=== PATIENT | female | born 1970 | race Caucasian/White ===

== ENCOUNTER → 2016-12-20 | Outpatient (CLI) | payer OTHER ==
[~2016-12-20] MED LIST: /DULO30CA; ACET500C; CALCCHW12 PO; DETR4CAP PO; ESTR62CR VA; FEXO30TA PO; FLEXERIL PO; HORMONES OR; IBUP600T PO; LECITHIN; LECITHIN PO; LIPI20TA OR; MIDRCAP PO; NAPR500T OR; NEXI20CA OR; OXYC10TA12 PO; PREG50CA PO; PROBIOTICS OR; PROP60TA OR; SUMA125TA OR; THERGRAN PO; TRAM50TA2 PO; VIVELLE PATCH EXT; VIVELLE TOP; [UNRECOGNIZED DRUG - OTHER] OR; antibiotic PO; oxycodone PO
--- NOTE | 2016-12-22 00:14 | ECWPNPC ---
PATIENT NAME: NOE SIDDIQUI : 1970 GENDER: FEMALE VISIT DATE: 12/20/2016 DISCHARGE DATE: 12/20/16 1557 VISIT LOCKED DATE TIME: PHYSICIAN: CHANTAL LAGUNA RESOURCE: CHANTAL LAGUNA HISTORY OF PRESENT ILLNESS HISTORY OF PRESENT ILLNESS: PAIN THE PATIENT DESCRIBES THE PAIN... FALL RISK SCREENING: SCREENING :NO FALLS IN THE PAST YEAR TODAY'S VISIT: NOTES: RATES 05/23 TODAY. IS SCHEDULED FOR CERVICAL FUSION WITH DR DASH SHOEMAKER ON 01/02/17. C5,6 AND 7 WITH CAGE. HAD ALLERGIC RESPONSE TO BOTOX. . CURRENT MEDICATIONS TAKING IMITREX 100 MG TABLET ORALLY NEEDED TAKING ONDANSETRON 8 MG TABLET DISPERSIBLE ORALLY TID PRN TAKING TRAMADOL HCL 50 MG TABLET ORALLY UP TO 8 PER DAY TAKING SINGULAIR 10 MG TABLET 1 TABLET IN THE EVENING ORALLY ONCE A DAY TAKING DETROL LA 4 MG CAPSULE EXTENDED RELEASE 24 HOUR 1 CAPSULE ORALLY ONCE A DAY TAKING VIVELLE-DOT 0.1 MG/24HR PATCH TWICE WEEKLY 1 PATCH TO SKIN TRANSDERMAL TWO TIMES A WEEK TAKING DYMISTA 137-50 MCG/ACT SUSPENSION 1 PUFF IN EACH NOSTRIL NASALLY TWICE A DAY TAKING CLARITIN 10 MG TABLET 1 TABLET ORALLY ONCE A DAY TAKING MECLIZINE HCL 25 MG TABLET 1 TABLET NEEDED ORALLY ONCE A DAY TAKING SUMATRIPTAN SUCCINATE 6 MG/0.5ML SOLUTION 0.5 ML NEEDED SUBCUTANEOUS NEEDED TAKING MULTIVITAMIN 1 CAP ORALLY ONCE DAILY TAKING MAGNESIUM 1200 MG TABLET 1 TABLET ORALLY ONCE A DAY TAKING OXYCODONE HCL 5 MG TABLET 1 TABLET ORALLY EVERY 6 HRS PRN MDD4 NOT-TAKING BACLOFEN 10 MG TABLET ORALLY FOUR TIMES DAILY NOT-TAKING VALIUM 10 MG TABLET 2 ORALLY PREPROCEDURE MEDICATION LIST REVIEWED AND RECONCILED WITH THE PATIENT PAST MEDICAL HISTORY IBS FIBROMYALGIA PTSD ESOPHAGITIS HYPERLIPIDEMIA LOW BACK PAIN MIGRAINE HEADACHES CHRONIC PELVIC PAIN SLEEP APNEA SINUSITIS C DIFF ALLERGIES NORTRIPTYLINE HCL: HAIR LOSS: ALLERGY INDERAL: RASH, HIVES: ALLERGY CODEINE PHOSPHATE (FOR ALLERGIES USE ONLY): VOMITING/ NAILS: ALLERGY LYRICA: SHAKY, HAIR LOSS, ITCH: ALLERGY NEURONTIN: ANXIETY, ITCHING: ALLERGY TOPAMAX: HAIR LOSS: ALLERGY TRAZODONE HCL ER: HEADACHE: ALLERGY ZOCOR: BODY ACHE: SIDE EFFECTS MORPHINE SULFATE: VOMITING/ MIGRAINE: SIDE EFFECTS DEPAKOTE: HIVES: ALLERGY BOTOX: ITCHES / SWELLING: ALLERGY SOCIAL HISTORY GENERAL: TOBACCO USE ARE YOU A:NONSMOKER 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 NEW PATIENT PAIN DIARY TODAY'S VISITNOTES FROM 0-10, WHAT LEVEL IS YOUR PAIN TODAY?0 PAIN CLINIC PFS, CLERGY, PUBLIC HEALTH REFERRALS PFS REFERRAL NEEDED?NO CLERGY REFERRAL NEEDED?NO PUBLIC HEALTH REFERRAL NEEDED?NO WAS THE PROVIDER NOTIFIED OF ANY PERTINENT INFO?NO PFS REFERRAL NEEDED?NO CLERGY REFERRAL NEEDED?NO PUBLIC HEALTH REFERRAL NEEDED?NO WAS THE PROVIDER NOTIFIED OF ANY PERTINENT INFO?NO REVIEW OF SYSTEMS CONSTITUTIONAL: ANY CHANGE IN YOUR MEDICAL CONDITION? NO . CHILLS NO . FEVER NO . INFECTION: DO YOU HAVE NEW INFECTIONS? NO . DO YOU HAVE HISTORY OF MRSA? NO . MUSCULOSKELETAL: ANY NEW PATTERNS OF PAIN OR NUMBNESS? NO . GASTROENTEROLOGY: ANY NEW CHANGE IN BOWEL CONTROL? NO . GENITOURINARY: ANY NEW CHANGE IN BLADDER CONTROL? YES PT REPORTS SHE IS HAVING A HARD TIME URINATING, SAW HER PRIMARY ABOUT THIS YESTERDAY . IS THERE A CHANCE YOU COULD BE ? NO . HEMATOLOGY/LYMPH: DO YOU TAKE ANY BLOOD THINNERS? (FOR EXAMPLE- COUMADIN, PLAVIX, AGGRENOX, PLATEL, PRADAXA, OR XARELTO) NO . WHEN WAS YOUR LAST DOSE? DATE: TIME: . NEUROLOGY: HAVE YOU FALLEN IN THE PAST 6 MONTHS? NO . ANY NEW EXTREMITY NUMBNESS OR WEAKNESS? NO . CARDIOLOGY: DO YOU HAVE A PACEMAKER OR DEFIBRILLATOR? NO . RESPIRATORY: HAVE YOU BEEN SICK IN THE PAST WEEK? YES PT BEING TREATED WITH ANTIBIOTICS FOR SINUS INFECTION, STARTED YESTERDAY . FEVER NO . FLU LIKE SYMPTOMS? NO . COUGH NO . INTEGUMENTARY: DO YOU HAVE ANY RASHES OR OPEN SORES? NO . ALLERGIC/IMMUNO: ARE YOU ALLERGIC TO SHELLFISH OR IV DYE? NO . ANY NEW ALLERGIES? NO . PSYCHIATRIC: DO YOU HAVE THOUGHTS OF HURTING YOURSELF OR SOMEONE ELSE? NO . ARE YOU ABUSED, NEGLECTED, OR IN AN UNSAFE ENVIRONMENT? NO . ENDOCRINOLOGY: ARE YOU DIABETIC? NO . OTHER: DO YOU NEED ANY PRESCRIPTIONS? YES OXYCODONE . IF YES, PLEASE LIST: ____ . ANY NEW PROBLEMS WITH YOUR MEDICATIONS? YES PT HAD THIRD ROUND OF BOTOX INJECTIONS AT DR. DURAN'S OFFICE EARLY OCTOBER, AND THIS TIME SHE HAD A LOT OF PAIN/SWELLING WITH THE INJECTIONS. IT TOOK TWO WEEKS FOR THIS TO SUBSIDE.&NBSP;. WHEN DID YOU LAST EAT? &NBSP;&NBSP; ____&NBSP;. WHEN DID YOU LAST DRINK? &NBSP;&NBSP; ____&NBSP;. WHAT DID YOU LAST DRINK? &NBSP;&NBSP; ____&NBSP;. NAME OF PERSON DRIVING YOU HOME? &NBSP;&NBSP; ____&NBSP;. DO YOU HAVE ANY OTHER QUESTIONS OR CONCERNS &NBSP;&NBSP; YES PT TO HAVE SURGERY C5-C6, C6-C7 FUSION DONE AT [facility] 01/02/17&NBSP;. REVIEWED BY: PROVIDER: CHANTAL GAONA . VITAL SIGNS WT 147.8 LBS, HT 67 IN, BMI 23.15 INDEX, BP 124/81 MM HG, HR 74 /MIN, RR 16 /MIN, TEMP 98.7 F, OXYGEN SAT % 94%, NA INITIALS SC 15 :16. EXAMINATION GENERAL EXAMINATION: PSYCHALERT , ORIENTED X 3 , APPROPRIATE MOOD AND AFFECT . LUNGS:CLEAR TO AUSCULTATION BILATERALLY. HEART:HEART RATE REGULAR. MUSCULOSKELETAL:POINT TENDERNESS OVER LUMBAR SPINOUS PROCESSES AND L>R LUMBAR PARASPINOUS MUSCLES. 4/5 LEFT LLOWER EXTREMITY MOTOR STRENGTH DISTALLY AND PROXIMALLY, 5/5 RIGHT LOWER EXTREMITY. GAIT ANTALGIC. PSITIVE DELISA SIGN NOTED ON LEFT. POINT TENDERNESS OVER SYMPHIGOUS PUBIS. 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 SURGEON TO MANAGE MEDS IN THE IMMEDIATE POST OP PERIOD.CONTINUE BIOFREEZE AND YOGA FOR PAIN. PROCEDURE CODES FA211 ESTABILISHED PATIENT [facility] CHARGE DISPOSITION & COMMUNICATION FOLLOW UP 6-8 WEEKS AFTER SURGERY ELECTRONICALLY SIGNED BY PARMJIT LOVING ON 12/21/2016 AT 07:47 PM EST DISCLAIMER : THIS IS A VISIT SUMMARY EXTRACTED FROM THE [employer] CHART. IT IS NOT A COPY OF THE [employer] PROGRESS NOTE. MELANY
== END ==
LOC: M PAIN 15:00
PROVIDERS: ATTEND Nurse Practitioner Family
DX: Z09 Encounter for follow-up examination after completed treatment for conditions other than malignant neoplasm (principal); G89.29 Other chronic pain; M96.1 Postlaminectomy syndrome, not elsewhere classified; M46.96 Unspecified inflammatory spondylopathy, lumbar region; M50.20 Other cervical disc displacement, unspecified cervical region; K58.9 Irritable bowel syndrome, unspecified; M79.7 Fibromyalgia; F43.10 Post-traumatic stress disorder, unspecified; E78.5 Hyperlipidemia, unspecified; G43.909 Migraine, unspecified, not intractable, without status migrainosus; G47.30 Sleep apnea, unspecified; Z88.8 Allergy status to other drugs, medicaments and biological substances; Z88.5 Allergy status to narcotic agent; Z79.891 Long term (current) use of opiate analgesic; Z79.899 Other long term (current) drug therapy

== ENCOUNTER → 2017-04-02 | Outpatient (CLI) | payer OTHER ==
--- NOTE | 2017-04-23 00:34 | ECWPNPC ---
PATIENT NAME: NOE SIDDIQUI : 1970 GENDER: FEMALE VISIT DATE: 04/02/2017 DISCHARGE DATE: 04/02/17 1646 VISIT LOCKED DATE TIME: PHYSICIAN: CHANTAL LAGUNA RESOURCE: CHANTAL LAGUNA REASON FOR APPOINTMENT 1. NECK/BACK HISTORY OF PRESENT ILLNESS HISTORY OF PRESENT ILLNESS: PAIN THE PATIENT DESCRIBES THE PAIN... FALL RISK SCREENING: SCREENING :NO FALLS IN THE PAST YEAR TODAY'S VISIT: NOTES: S/P CERVICAL FUSION COMPLETED 01/02/17 AT C5-6, C6-7. LOST VOICE AFTER SURGERYX 2 MONTHS. HAS BEEEN DOING POST OP PT. THIS IMPROVED RANGE OF MOTION. IMMED POST HAD REVIEF OF PAIN IN ARMS AND IS HAVING FEWER MIGRAINES. . RATES PAIN TODAY 7/10. DESCRIBES PAIN CNSTANT, ACHING, SHARP, STABBING, TENDER AND THROBBING AND SHOOTING. PAIN IS NOW WORSE IN LOW BACK WITH PAIN INTO LEGS. STILL WITH DIFFICULTY WITH BOWEL AND BLADDER. . CURRENT MEDICATIONS TAKING IMITREX 100 MG TABLET ORALLY NEEDED TAKING ONDANSETRON 8 MG TABLET DISPERSIBLE ORALLY TID PRN TAKING TRAMADOL HCL 50 MG TABLET ORALLY UP TO 8 PER DAY TAKING SINGULAIR 10 MG TABLET 1 TABLET IN THE EVENING ORALLY ONCE A DAY TAKING DETROL LA 4 MG CAPSULE EXTENDED RELEASE 24 HOUR 1 CAPSULE ORALLY ONCE A DAY TAKING VIVELLE-DOT 0.1 MG/24HR PATCH TWICE WEEKLY 1 PATCH TO SKIN TRANSDERMAL TWO TIMES A WEEK TAKING DYMISTA 137-50 MCG/ACT SUSPENSION 1 PUFF IN EACH NOSTRIL NASALLY TWICE A DAY TAKING CLARITIN 10 MG TABLET 1 TABLET ORALLY ONCE A DAY TAKING MECLIZINE HCL 25 MG TABLET 1 TABLET NEEDED ORALLY ONCE A DAY TAKING SUMATRIPTAN SUCCINATE 6 MG/0.5ML SOLUTION 0.5 ML NEEDED SUBCUTANEOUS NEEDED TAKING MULTIVITAMIN 1 CAP ORALLY ONCE DAILY TAKING MAGNESIUM 1200 MG TABLET 1 TABLET ORALLY ONCE A DAY TAKING OXYCODONE HCL 10 MG TABLET 1 TABLET ORALLY BID NOT-TAKING BACLOFEN 10 MG TABLET ORALLY FOUR TIMES DAILY NOT-TAKING VALIUM 10 MG TABLET 2 ORALLY PREPROCEDURE MEDICATION LIST REVIEWED AND RECONCILED WITH THE PATIENT PAST MEDICAL HISTORY IBS FIBROMYALGIA PTSD ESOPHAGITIS HYPERLIPIDEMIA LOW BACK PAIN MIGRAINE HEADACHES CHRONIC PELVIC PAIN SLEEP APNEA SINUSITIS C DIFF ALLERGIES NORTRIPTYLINE HCL: HAIR LOSS: ALLERGY INDERAL: RASH, HIVES: ALLERGY CODEINE PHOSPHATE (FOR ALLERGIES USE ONLY): VOMITING/ NAILS: ALLERGY LYRICA: SHAKY, HAIR LOSS, ITCH: ALLERGY NEURONTIN: ANXIETY, ITCHING: ALLERGY TOPAMAX: HAIR LOSS: ALLERGY TRAZODONE HCL ER: HEADACHE: ALLERGY ZOCOR: BODY ACHE: SIDE EFFECTS MORPHINE SULFATE: VOMITING/ MIGRAINE: SIDE EFFECTS DEPAKOTE: HIVES: ALLERGY BOTOX: ITCHES / SWELLING: ALLERGY SURGICAL HISTORY TONSILLECTOMY, ADENOIDECTOMY, REPAIR OF DEVIATED SEPTUM, DRAINAGE OF SINUSES 2012 FUSION L2 L3 2009 LAP KENNETH 2008 HYSTERECTOMY (TOTAL WITH SALPINGO-OOPHORECTOMY) WITH BLADDER AND PELVIC REPAIR 2003 SEVERAL PELVIC SURGURIES POST FOR PELVIC FLOOR ISSUES (HAS CHRONIC BOWEL AND BLADDER ISSUES A RESIDUAL). C-5 THROUGH C7 FUSION 2017 HOSPITALIZATION/MAJOR DIAGNOSTIC PROCEDURE SEE ABOVE REVIEW OF SYSTEMS REVIEWED BY: PROVIDER: CHANTAL GAONA . CONSTITUTIONAL: ANY CHANGE IN YOUR MEDICAL CONDITION? NO . CHILLS NO . FEVER NO . INFECTION: DO YOU HAVE NEW INFECTIONS? NO . DO YOU HAVE HISTORY OF MRSA? NO . MUSCULOSKELETAL: ANY NEW PATTERNS OF PAIN OR NUMBNESS? YES SINCE SURGERY/ ALSO VOICE IS A WHIPSER AND RASPY . GASTROENTEROLOGY: ANY NEW CHANGE IN BOWEL CONTROL? YES SINCE SURGERY HAS DIFFICULTY CONTROLLING . GENITOURINARY: ANY NEW CHANGE IN BLADDER CONTROL? NO . IS THERE A CHANCE YOU COULD BE ? NO . HEMATOLOGY/LYMPH: DO YOU TAKE ANY BLOOD THINNERS? (FOR EXAMPLE- COUMADIN, PLAVIX, AGGRENOX, PLATEL, PRADAXA, OR XARELTO) NO . WHEN WAS YOUR LAST DOSE? DATE: TIME: . NEUROLOGY: HAVE YOU FALLEN IN THE PAST 6 MONTHS? YES HAS &QUOT;TRIPPED A FEW TIMES&QUOT; DUE TO WEAKNESS IN LEGS STATES PATIENT . ANY NEW EXTREMITY NUMBNESS OR WEAKNESS? NO . CARDIOLOGY: DO YOU HAVE A PACEMAKER OR DEFIBRILLATOR? NO . RESPIRATORY: HAVE YOU BEEN SICK IN THE PAST WEEK? NO . FEVER NO . FLU LIKE SYMPTOMS? NO . COUGH NO . INTEGUMENTARY: DO YOU HAVE ANY RASHES OR OPEN SORES? NO . ALLERGIC/IMMUNO: ARE YOU ALLERGIC TO SHELLFISH OR IV DYE? NO . ANY NEW ALLERGIES? NO . PSYCHIATRIC: DO YOU HAVE THOUGHTS OF HURTING YOURSELF OR SOMEONE ELSE? NO . ARE YOU ABUSED, NEGLECTED, OR IN AN UNSAFE ENVIRONMENT? NO . ENDOCRINOLOGY: ARE YOU DIABETIC? NO . OTHER: DO YOU NEED ANY PRESCRIPTIONS? NO . IF YES, PLEASE LIST: ____ . ANY NEW PROBLEMS WITH YOUR MEDICATIONS? NO . WHEN DID YOU LAST EAT? ____ . WHEN DID YOU LAST DRINK? ____ . WHAT DID YOU LAST DRINK? ____ . NAME OF PERSON DRIVING YOU HOME? ____ . DO YOU HAVE ANY OTHER QUESTIONS OR CONCERNS NO . ENT: CHANGE IN VOICE POST OP SWALLOWING ISSUES AND RASPY VOICE. . VITAL SIGNS WT 142.4 LBS, HT 67 IN, BMI 22.30 INDEX, BP 116/79 MM HG, HR 79 /MIN, RR 16 /MIN, TEMP 98.1 F, OXYGEN SAT % 95%, NA INITIALS SC 15:15, REVIEWED BY: KG. EXAMINATION GENERAL EXAMINATION: PSYCHALERT , ORIENTED X 3 , APPROPRIATE MOOD AND AFFECT . LUNGS:CLEAR TO AUSCULTATION BILATERALLY. HEART:HEART RATE REGULAR. MUSCULOSKELETAL:POINT TENDERNESS OVER LUMBAR SPINOUS PROCESSES AND L>R LUMBAR PARASPINOUS MUSCLES. GAIT NONANTALGIC. POSTURE UPRIGHT. POSITIVE DELISA SIGN NOTED ON LEFT. . 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 TREATMENT CERVICAL POST-LAMINECTOMY SYNDROME REFILL BACLOFEN TABLET, 10 MG, 1 TABLET WITH FOOD OR MILK, ORALLY, FOUR TIMES DAILY, 30 DAY(S), 120, REFILLS 1 REFILL VALIUM TABLET, 5 MG, 1 TABLET NEEDED, ORALLY, Q 8-12 HOURSPRN SEVERE SPASM MDD=2, 30 DAY(S), 30, REFILLS 0 REFILL OXYCODONE HCL TABLET, 10 MG, 1 TABLET, ORALLY, Q 8-12 HOURS PRN SEVERE PAIN MDD=2, 30 DAY(S), 60, REFILLS 0 LAB: COMPREHENSIVE METABOLIC PROFILE LAB: ERYTHROCYTE SEDIMENTATION RATE LAB: [id number] LAB: LUPUS TYPE ANTICOAGULANT SCREE LAB: RHEUMATOID FACTOR QUANT LAB: DELIA TITER & PATTERN NOTES: FOLLOW UP WITH [facility] - CALL IF WE CAN MAKE REFERRAL.CONSIDER REPEAT OF LABS FOR AUTOIMMUNE ISSUES. CONSIDER REFERRAL TO [facility] OR TO [facility]. CLINICAL NOTES: ISTOP REGISTRY REVIEWED AND DEMNOSTRATES COMPLLIANCE. PROCEDURE CODES FA211 ESTABILISHED PATIENT [facility] CHARGE DISPOSITION & COMMUNICATION FOLLOW UP 1 MONTH - END OF DAY ELECTRONICALLY SIGNED BY PARMJIT LOVING ON 04/22/2017 AT 08:52 AM EDT DISCLAIMER : THIS IS A VISIT SUMMARY EXTRACTED FROM THE [employer] CHART. IT IS NOT A COPY OF THE [employer] PROGRESS NOTE. MELANY
== END ==
LOC: M PAIN 15:00
PROVIDERS: ATTEND Nurse Practitioner Family
DX: M96.1 Postlaminectomy syndrome, not elsewhere classified (principal); M79.1 Myalgia; M47.22 Other spondylosis with radiculopathy, cervical region; Z79.899 Other long term (current) drug therapy; Z79.891 Long term (current) use of opiate analgesic; Z88.8 Allergy status to other drugs, medicaments and biological substances; Z88.5 Allergy status to narcotic agent

== ENCOUNTER → 2017-05-01 | Outpatient (CLI) | payer OTHER ==
--- NOTE | 2017-06-01 23:55 | ECWPNPC ---
PATIENT NAME: NOE SIDDIQUI : 1970 GENDER: FEMALE VISIT DATE: 05/01/2017 DISCHARGE DATE: 05/01/17 1659 VISIT LOCKED DATE TIME: PHYSICIAN: CHANTAL LAGUNA RESOURCE: CHANTAL LAGUNA REASON FOR APPOINTMENT 1. NECK/BACK HISTORY OF PRESENT ILLNESS HISTORY OF PRESENT ILLNESS: PAIN THE PATIENT DESCRIBES THE PAIN... FALL RISK SCREENING: SCREENING :NO FALLS IN THE PAST YEAR TODAY'S VISIT: NOTES: VOICE HAS BEEN GETTING WORSE WITH INCREASED THROAT SPASMS, AND CHOKING. HAS BEEN HAVING INCREASED RADIATION OF PAIN DOWN LEFT ARM. HAS BEEN HAVING INCREASED WEAKNESS IN LEFT HAND. RATES PAIN TODAY 7/10. . CURRENT MEDICATIONS TAKING IMITREX 100 MG TABLET ORALLY NEEDED TAKING ONDANSETRON 8 MG TABLET DISPERSIBLE ORALLY TID PRN TAKING TRAMADOL HCL 50 MG TABLET ORALLY UP TO 8 PER DAY TAKING SINGULAIR 10 MG TABLET 1 TABLET IN THE EVENING ORALLY ONCE A DAY TAKING DETROL LA 4 MG CAPSULE EXTENDED RELEASE 24 HOUR 1 CAPSULE ORALLY ONCE A DAY TAKING VIVELLE-DOT 0.1 MG/24HR PATCH TWICE WEEKLY 1 PATCH TO SKIN TRANSDERMAL TWO TIMES A WEEK TAKING DYMISTA 137-50 MCG/ACT SUSPENSION 1 PUFF IN EACH NOSTRIL NASALLY TWICE A DAY TAKING CLARITIN 10 MG TABLET 1 TABLET ORALLY ONCE A DAY TAKING MECLIZINE HCL 25 MG TABLET 1 TABLET NEEDED ORALLY ONCE A DAY TAKING SUMATRIPTAN SUCCINATE 6 MG/0.5ML SOLUTION 0.5 ML NEEDED SUBCUTANEOUS NEEDED TAKING MULTIVITAMIN 1 CAP ORALLY ONCE DAILY TAKING MAGNESIUM 1200 MG TABLET 1 TABLET ORALLY ONCE A DAY TAKING BACLOFEN 10 MG TABLET 1 TABLET WITH FOOD OR MILK ORALLY FOUR TIMES DAILY TAKING VALIUM 5 MG TABLET 1 TABLET NEEDED ORALLY Q 8-12 HOURSPRN SEVERE SPASM MDD=2 TAKING OXYCODONE HCL 10 MG TABLET 1 TABLET ORALLY Q 8-12 HOURS PRN SEVERE PAIN MDD=2 MEDICATION LIST REVIEWED AND RECONCILED WITH THE PATIENT PAST MEDICAL HISTORY IBS FIBROMYALGIA PTSD ESOPHAGITIS HYPERLIPIDEMIA LOW BACK PAIN MIGRAINE HEADACHES CHRONIC PELVIC PAIN SLEEP APNEA SINUSITIS C DIFF ALLERGIES NORTRIPTYLINE HCL: HAIR LOSS: ALLERGY INDERAL: RASH, HIVES: ALLERGY CODEINE PHOSPHATE (FOR ALLERGIES USE ONLY): VOMITING/ NAILS: ALLERGY LYRICA: SHAKY, HAIR LOSS, ITCH: ALLERGY NEURONTIN: ANXIETY, ITCHING: ALLERGY TOPAMAX: HAIR LOSS: ALLERGY TRAZODONE HCL ER: HEADACHE: ALLERGY ZOCOR: BODY ACHE: SIDE EFFECTS MORPHINE SULFATE: VOMITING/ MIGRAINE: SIDE EFFECTS DEPAKOTE: HIVES: ALLERGY BOTOX: ITCHES / SWELLING: ALLERGY REVIEW OF SYSTEMS REVIEWED BY: PROVIDER: CHANTAL GAONA . CONSTITUTIONAL: ANY CHANGE IN YOUR MEDICAL CONDITION? NO . CHILLS NO . FEVER NO . INFECTION: DO YOU HAVE NEW INFECTIONS? NO . DO YOU HAVE HISTORY OF MRSA? NO . MUSCULOSKELETAL: ANY NEW PATTERNS OF PAIN OR NUMBNESS? YES, PAIN AND LOSS STRENGTH, NUMBNESS LEFT ARM DOWN TO HAND. FROM C3-C4 THROAT SPASMS, HOARSENESS PAIN. GOING TO SEE DR PETERS ENT 05/08/17 CYST OR TUMOR, OBGYN REMOVAL 05/20/17 . GASTROENTEROLOGY: ANY NEW CHANGE IN BOWEL CONTROL? NO . GENITOURINARY: ANY NEW CHANGE IN BLADDER CONTROL? NO . IS THERE A CHANCE YOU COULD BE ? NO . HEMATOLOGY/LYMPH: DO YOU TAKE ANY BLOOD THINNERS? (FOR EXAMPLE- COUMADIN, PLAVIX, AGGRENOX, PLATEL, PRADAXA, OR XARELTO) NO . WHEN WAS YOUR LAST DOSE? DATE: TIME: . NEUROLOGY: HAVE YOU FALLEN IN THE PAST 6 MONTHS? NO . ANY NEW EXTREMITY NUMBNESS OR WEAKNESS? NO . CARDIOLOGY: DO YOU HAVE A PACEMAKER OR DEFIBRILLATOR? NO . RESPIRATORY: HAVE YOU BEEN SICK IN THE PAST WEEK? NO . FEVER NO . FLU LIKE SYMPTOMS? NO . COUGH NO . INTEGUMENTARY: DO YOU HAVE ANY RASHES OR OPEN SORES? NO . ALLERGIC/IMMUNO: ARE YOU ALLERGIC TO SHELLFISH OR IV DYE? NO . ANY NEW ALLERGIES? NO . PSYCHIATRIC: DO YOU HAVE THOUGHTS OF HURTING YOURSELF OR SOMEONE ELSE? NO . ARE YOU ABUSED, NEGLECTED, OR IN AN UNSAFE ENVIRONMENT? NO . ENDOCRINOLOGY: ARE YOU DIABETIC? NO . OTHER: DO YOU NEED ANY PRESCRIPTIONS? NO . IF YES, PLEASE LIST: ____ . ANY NEW PROBLEMS WITH YOUR MEDICATIONS? NO . WHEN DID YOU LAST EAT? ____ . WHEN DID YOU LAST DRINK? ____ . WHAT DID YOU LAST DRINK? ____ . NAME OF PERSON DRIVING YOU HOME? ____ . DO YOU HAVE ANY OTHER QUESTIONS OR CONCERNS NO . VITAL SIGNS WT 143.6 LBS, HT 67 IN, BMI 22.49 INDEX, BP 116/69 MM HG, HR 68 /MIN, RR 16 /MIN, TEMP 98.6 F, OXYGEN SAT % 98%, NA INITIALS SC 15:47, REVIEWED BY: PANCHO. EXAMINATION GENERAL EXAMINATION: PSYCHALERT , ORIENTED X 3 , APPROPRIATE MOOD AND AFFECT . LUNGS:CLEAR TO AUSCULTATION BILATERALLY. HEART:HEART RATE REGULAR. MUSCULOSKELETAL:POINT TENDERNESS OVER LUMBAR SPINOUS PROCESSES AND L>R LUMBAR PARASPINOUS MUSCLES. GAIT NONANTALGIC. POSTURE UPRIGHT. POINT TENDERNESS OVER BILATRAL TRAPEZIUS MUSCLES AND OVER THE SCAPULA. DECREASED ROM WITH NECK FLEXION, EXTESION AND ROTATION. 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 [phone] TAKE LABS FROM [facility] AND TELL HIM ABOUT OCCULAR INFLAMMATION. PROCEDURE CODES FA211 ESTABILISHED PATIENT [facility] CHARGE DISPOSITION & COMMUNICATION FOLLOW UP 2 MONTHS ELECTRONICALLY SIGNED BY PARMJIT LOVING ON 05/30/2017 AT 07:19 PM EDT DISCLAIMER : THIS IS A VISIT SUMMARY EXTRACTED FROM THE [employer] CHART. IT IS NOT A COPY OF THE [employer] PROGRESS NOTE. MELANY
== END ==
LOC: M PAIN 15:00
PROVIDERS: ATTEND Nurse Practitioner Family
DX: M96.1 Postlaminectomy syndrome, not elsewhere classified (principal); M79.1 Myalgia; Z79.891 Long term (current) use of opiate analgesic; M47.22 Other spondylosis with radiculopathy, cervical region; Z79.899 Other long term (current) drug therapy; Z88.8 Allergy status to other drugs, medicaments and biological substances; Z88.5 Allergy status to narcotic agent; Z88.2 Allergy status to sulfonamides

== ENCOUNTER → 2017-05-17 | Outpatient (CLI) | payer OTHER ==
[~2017-05-17] MED LIST changes: +E-Z-GAS II EFFERVESCENT PACKET (SODIUM BICARB./CITRIC ACID/SIMETHICONE) As Ordered ONE; +E-Z-HD 98% w/w 340GM SUSP BTL As Ordered ONE; +E-Z-PAQUE 96% w/w SUSP 176GM BTL As Ordered ONE
--- NOTE | 2017-05-23 17:19 | REP ---
Chest one-view HISTORY: Dysphasia Comparison: None The examination is available for review at 04:30 p.m. 05/23/2017 Linear density is present in the left lower lobe consistent with atelectasis or scar. The right lung is clear. The heart is normal in size. The pulmonary vasculature is normal in appearance. Impression: Left lower lobe atelectasis or scar. Signed by Karlos Rodríguez MD 05/23/2017 05:10 P
== END ==
LOC: M RAD 09:40
PROVIDERS: ATTEND Otolaryngology
DX: R13.10 Dysphagia, unspecified (principal)

== ENCOUNTER → 2017-06-26 | Outpatient (CLI) | payer OTHER ==
[~2017-06-26] MED LIST changes: -E-Z-GAS II EFFERVESCENT PACKET (SODIUM BICARB./CITRIC ACID/SIMETHICONE) As Ordered ONE; -E-Z-HD 98% w/w 340GM SUSP BTL As Ordered ONE; -E-Z-PAQUE 96% w/w SUSP 176GM BTL As Ordered ONE
--- NOTE | 2017-07-13 23:24 | ECWPNPC ---
PATIENT NAME: NOE SIDDIQUI : 1970 GENDER: FEMALE VISIT DATE: 06/26/2017 DISCHARGE DATE: 06/26/17 1641 VISIT LOCKED DATE TIME: PHYSICIAN: CHANTAL LAGUNA RESOURCE: CHANTAL LAGUNA REASON FOR APPOINTMENT 1. MEDS HISTORY OF PRESENT ILLNESS FALL RISK SCREENING: SCREENING :NO FALLS IN THE PAST YEAR PAIN SCREENING: PATIENT HAS A COMPLAINT OF ACUTE OR CHRONIC PAIN :YES TODAY'S VISIT: NOTES: IS HAVING RECURRANCE OF PAIN RADIATING DOWN LEFT ARM.IS HAVING TROUBLE CARRYING A WEIGHT ON THE LEFT AND LEFT FINGERS ARE NUMB. HAD REPEAT MRI AND WILL RESEE SURGEON AND ENT. THEY WANT HER TO DO PT TO [facility] - NOT CURRENTLY ABLE TO FIND A THERAPIST. IS TO HAV A SWALLOW TEST THIS WEEK. REPORTS ,MEDS ARE PRIMARILY TAKEN AT NIGHT. REPORTS FEELS COLD ALL THE TIME AND IS HAVING MARKED GENERIZED PAIN. HAS LYMPH NODES IN AXILLA AND GROIN WHICH SWELLED AFTER RECENT SURGERY. IS NOTING INCREASED PAIN AND A SENSATION OF THE LEFT HIP WANTING TO DISLOCATE. IS HAVING RADIATING PAIN DOWN LEFT LEG. THIS WAS OCCURING PRIOR TO THE RECENT CYST REMOVAL. . CURRENT MEDICATIONS TAKING IMITREX 100 MG TABLET ORALLY NEEDED TAKING ONDANSETRON 8 MG TABLET DISPERSIBLE ORALLY TID PRN TAKING TRAMADOL HCL 50 MG TABLET ORALLY UP TO 8 PER DAY TAKING SINGULAIR 10 MG TABLET 1 TABLET IN THE EVENING ORALLY ONCE A DAY TAKING DETROL LA 4 MG CAPSULE EXTENDED RELEASE 24 HOUR 1 CAPSULE ORALLY ONCE A DAY TAKING VIVELLE-DOT 0.1 MG/24HR PATCH TWICE WEEKLY 1 PATCH TO SKIN TRANSDERMAL TWO TIMES A WEEK TAKING DYMISTA 137-50 MCG/ACT SUSPENSION 1 PUFF IN EACH NOSTRIL NASALLY TWICE A DAY TAKING CLARITIN 10 MG TABLET 1 TABLET ORALLY ONCE A DAY TAKING MECLIZINE HCL 25 MG TABLET 1 TABLET NEEDED ORALLY ONCE A DAY TAKING SUMATRIPTAN SUCCINATE 6 MG/0.5ML SOLUTION 0.5 ML NEEDED SUBCUTANEOUS NEEDED TAKING MULTIVITAMIN 1 CAP ORALLY ONCE DAILY TAKING MAGNESIUM 1200 MG TABLET 1 TABLET ORALLY ONCE A DAY TAKING BACLOFEN 10 MG TABLET 1 TABLET WITH FOOD OR MILK ORALLY FOUR TIMES DAILY TAKING OXYCODONE HCL 10 MG TABLET 1 TABLET ORALLY Q 8-12 HOURS PRN SEVERE PAIN MDD=2 TAKING VALIUM 5 MG TABLET 1 TABLET NEEDED ORALLY Q 8-12 HOURSPRN SEVERE SPASM MDD=2 MEDICATION LIST REVIEWED AND RECONCILED WITH THE PATIENT PAST MEDICAL HISTORY IBS FIBROMYALGIA PTSD ESOPHAGITIS HYPERLIPIDEMIA LOW BACK PAIN MIGRAINE HEADACHES CHRONIC PELVIC PAIN SLEEP APNEA SINUSITIS C DIFF NERVES IN EYES ARE SWOLLEN ALLERGIES NORTRIPTYLINE HCL: HAIR LOSS: ALLERGY INDERAL: RASH, HIVES: ALLERGY CODEINE PHOSPHATE (FOR ALLERGIES USE ONLY): VOMITING/ NAILS: ALLERGY LYRICA: SHAKY, HAIR LOSS, ITCH: ALLERGY NEURONTIN: ANXIETY, ITCHING: ALLERGY TOPAMAX: HAIR LOSS: ALLERGY TRAZODONE HCL ER: HEADACHE: ALLERGY ZOCOR: BODY ACHE: SIDE EFFECTS MORPHINE SULFATE: VOMITING/ MIGRAINE: SIDE EFFECTS DEPAKOTE: HIVES: ALLERGY BOTOX: ITCHES / SWELLING: ALLERGY SURGICAL HISTORY TONSILLECTOMY, ADENOIDECTOMY, REPAIR OF DEVIATED SEPTUM, DRAINAGE OF SINUSES 2011 FUSION L2 L3 2009 LAP KENNETH 2008 HYSTERECTOMY (TOTAL WITH SALPINGO-OOPHORECTOMY) WITH BLADDER AND PELVIC REPAIR 2003 SEVERAL PELVIC SURGURIES POST FOR PELVIC FLOOR ISSUES (HAS CHRONIC BOWEL AND BLADDER ISSUES A RESIDUAL). C-5 THROUGH C7 FUSION 2017 CYST REMOVED IN RIGHT LABIA AREA 05-22-2017 FAMILY HISTORY STRONG FAMILY HISTORY OF AUTO IMMUNE DISEASES SUCH MULTIPLE SCLEROSIS, PSORIATIC ARTHRITIS, AND GOUT. SOCIAL HISTORY GENERAL: TOBACCO USE ARE YOU A:NONSMOKER CAFFEINE CAFFEINE USE?YES HOW OFTEN AND HOW MUCH? 1 CUP PER DAY 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 NEW PATIENT PAIN DIARY TODAY'S VISITNOTES FROM 0-10, WHAT LEVEL IS YOUR PAIN TODAY?0 PAIN CLINIC PFS, CLERGY, PUBLIC HEALTH REFERRALS PFS REFERRAL NEEDED?NO CLERGY REFERRAL NEEDED?NO PUBLIC HEALTH REFERRAL NEEDED?NO WAS THE PROVIDER NOTIFIED OF ANY PERTINENT INFO?YES HAS THE PATIENT BEEN EDUCATED REGARDING HIS/HER PLAN OF CARE?YES HAS THE PATIENT BEEN EDUCATED REGARDING PAIN, THE RISK FOR PAIN, THE IMPORTANCE OF EFFECTIVE PAIN MANAGEMENT, AND THE PAIN ASSESSMENT PROCESS?YES REVIEWED BY: SARA. HOSPITALIZATION/MAJOR DIAGNOSTIC PROCEDURE SEE ABOVE REVIEW OF SYSTEMS REVIEWED BY: PROVIDER: CHANTAL GAONA . CONSTITUTIONAL: LEVEL OF FUNCTIONALITY SIGN INTOLERANCE . ANY CHANGE IN YOUR MEDICAL CONDITION? NO . CHILLS NO . FEVER NO . INFECTION: DO YOU HAVE NEW INFECTIONS? NO . DO YOU HAVE HISTORY OF MRSA? NO . MUSCULOSKELETAL: ANY NEW PATTERNS OF PAIN OR NUMBNESS? NO . SYTEMIC LUPUS NO . GASTROENTEROLOGY: ANY NEW CHANGE IN BOWEL CONTROL? NO . BARRETTS ESOPHAGUS NO . CIRRHOSIS NO . HEPATITIS NO . LIVER FAILURE NO . ACID REFLUX NO . UNEXPLAINED WEIGHT LOSS NO . GENITOURINARY: ANY NEW CHANGE IN BLADDER CONTROL? NO . IS THERE A CHANCE YOU COULD BE ? NO . HEMATOLOGY/LYMPH: DO YOU TAKE ANY BLOOD THINNERS? (FOR EXAMPLE- COUMADIN, PLAVIX, AGGRENOX, PLATEL, PRADAXA, OR XARELTO) NO . WHEN WAS YOUR LAST DOSE? DATE: TIME: . LOW PLATELET COUNT NO . SICKLE CELL DISEASE NO . VON WILLIEBRANDS NO . FACTOR V LEIDEN NO . THALLASEMIA NO . ANEMIA NO . EASY BRUISING NO . NEUROLOGY: HAVE YOU FALLEN IN THE PAST 6 MONTHS? NO . ANY NEW EXTREMITY NUMBNESS OR WEAKNESS? NO . HEAD INJURY NO . DEMENTIA NO . CEREBRAL PALSY NO . MULTIPLE SCLEROSIS NO . DIZZINESS NO . HEADACHE NO . STROKES NO . VERTIGO NO . CARDIOLOGY: DO YOU HAVE A PACEMAKER OR DEFIBRILLATOR? NO . ANGINA NO . HEART ATTACK NO . HEART SURGERY NO . CONGESTIVE HEART FAILURE/FLUID OVERLOAD NO . CHEST PAIN NO . HIGH BLOOD PRESSURE NO . IRREGULAR HEART BEAT NO . RESPIRATORY: HAVE YOU BEEN SICK IN THE PAST WEEK? NO . FEVER NO . FLU LIKE SYMPTOMS? NO . CPAP NO . BYPAP NO . ASTHMA NO . EMPHYSEMA NO . CHRONIC LUNG DISEASES NO . SHORTNESS OF BREATH ON EXERTION NO . COUGH NO . SNORING NO . INTEGUMENTARY: DO YOU HAVE ANY RASHES OR OPEN SORES? NO . ALLERGIC/IMMUNO: ARE YOU ALLERGIC TO SHELLFISH OR IV DYE? NO . ANY NEW ALLERGIES? NO . PSYCHIATRIC: DO YOU HAVE THOUGHTS OF HURTING YOURSELF OR SOMEONE ELSE? NO . ARE YOU ABUSED, NEGLECTED, OR IN AN UNSAFE ENVIRONMENT? NO . ENDOCRINOLOGY: ARE YOU DIABETIC? NO . THYROID DISORDER NO . OTHER: DO YOU NEED ANY PRESCRIPTIONS? VALIUM, OXYCODONE . IF YES, PLEASE LIST: ____ . ANY NEW PROBLEMS WITH YOUR MEDICATIONS? NO . WHEN DID YOU LAST EAT? ____ . WHEN DID YOU LAST DRINK? ____ . WHAT DID YOU LAST DRINK? ____ . NAME OF PERSON DRIVING YOU HOME? ____ . 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 VITAL SIGNS WT 140 LBS, HT 67 IN, BMI 21.92 INDEX, BP 114/73 MM HG, HR 77 /MIN, RR 16 /MIN, TEMP 98.1 F, OXYGEN SAT % 96%, SAFE IN ENV? (Y/N) Y, NA INITIALS AW 1521, REVIEWED BY: SARA. EXAMINATION GENERAL EXAMINATION: PSYCHALERT , ORIENTED X 3 , APPROPRIATE MOOD AND AFFECT . HEENT:VOICE SOFT, RASPY/HOARSE. CHEST:SWOLLEN LYMPH NODES BILATERAL AXILLA L>R, TENDER OVER BILATERAL GROIN AND POPLITEAL SPACES . LUNGS:CLEAR TO AUSCULTATION BILATERALLY. HEART:HEART RATE REGULAR. MUSCULOSKELETAL:GENERALIZED WEAKNESS BILATERAL UPPER AND LOWER EXTREMITIES. TENDERNESS ABOVE AND BELOW THE WAIST, BOTH SIDES OF THE BODY, CONSISTANT WITH FIBROMYALGIA. SPECIFIC TRIGGER POINTS ARE ELICTED WITH PALPATION OVER THE CERVICAL PARASPINOUS MUSCLES AND ACROSS THE TRAPEZIUS. SLOW TO RISE TO STANDING POSITION. POSTURE UPRIGHT, GAIT ANTALGIC. JOINTS:BILATERAL, ANKLE , ELBOW , KNEE , SHOULDER , WRIST , PAIN , SWELLING . 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 CLINICAL NOTES: ISTOP REGISTRY REVIEWED AND DEMNOSTRATES COMPLLIANCE. ([id number]) BRINGS IN MEDICATIONS WHICH IS APPROPRIATE FOR WHAT WAS DISPENSED. RECENT URINE TOXICOLOGY REVIEWED. NO UNAUTHORIZED MEDICATIONS. NO ILLICIT SUBSTANCES AND PRESCRIBED MEDICATIONS WERE PRESENT. PROCEDURE CODES FA211 ESTABILISHED PATIENT [facility] CHARGE DISPOSITION & COMMUNICATION FOLLOW UP 4-6 WEEKS (REASON: NECK PAIN) ELECTRONICALLY SIGNED BY PARMJIT LOVING ON 07/13/2017 AT 09:10 PM EDT DISCLAIMER : THIS IS A VISIT SUMMARY EXTRACTED FROM THE [employer] [facility] CHART. IT IS NOT A COPY OF THE [facility] PROGRESS NOTE. MTDD
== END ==
LOC: M PAIN 15:00
PROVIDERS: ATTEND Nurse Practitioner Family
DX: M96.1 Postlaminectomy syndrome, not elsewhere classified (principal); M47.22 Other spondylosis with radiculopathy, cervical region; M79.1 Myalgia; F43.10 Post-traumatic stress disorder, unspecified; E78.5 Hyperlipidemia, unspecified; G47.30 Sleep apnea, unspecified; Z88.5 Allergy status to narcotic agent; Z88.8 Allergy status to other drugs, medicaments and biological substances; Z79.891 Long term (current) use of opiate analgesic; Z79.899 Other long term (current) drug therapy

== ENCOUNTER → 2017-06-28 | Outpatient (CLI) | payer OTHER ==
[~2017-06-28] MED LIST changes: +E-Z-GAS II EFFERVESCENT PACKET (SODIUM BICARB./CITRIC ACID/SIMETHICONE) As Ordered ONE; +E-Z-HD 98% w/w 340GM SUSP BTL As Ordered ONE; +E-Z-PAQUE 96% w/w SUSP 176GM BTL As Ordered ONE
--- NOTE | 2017-06-28 10:48 | REP ---
Esophagram: History: Dysphasia and dysphonia since the cervical spine fusion surgery earlier in this year. Fluoroscopy time is 1 minute 5 seconds. Findings: Spot Welder radiograph of the chest shows the bottom of a cervical spine fusion plate. There are clips in the right upper quadrant of the abdomen. Some linear fibrosis is seen in the left base. Lung rodriguez are otherwise clear. Cardiomediastinal silhouette is unremarkable. It was observed that the patient had a prominent gag reflex in response to the oral barium. There was laryngeal penetration. There was a cough reflex induced with several of the swallows as well but no tracheal aspiration was observed. The epiglottis was observed to invert somewhat late in the swallowing cycle. The hypopharynx is unremarkable. The ventral discectomy fusion plate is seen in good alignment. This does not appear to indent the posterior wall of the hypopharynx or upper cervical esophagus. There is straightening of the normal cervical spine. The thoracic esophagus is normal in coarse, caliber and peristalsis. No reflux, hiatal hernia, or stricture is seen. Impression: Mild motor discoordination of the oral pharyngeal phase of barium swallow with delayed epiglottic inversion and laryngeal penetration. No tracheal aspiration is observed. No significant mass effect is seen on the posterior wall of the hypopharynx or cervical esophagus. Signed by Giovanny Youngblood MD 06/28/2017 02:47 P
== END ==
LOC: M RAD 09:07
PROVIDERS: ATTEND Otolaryngology
DX: R13.10 Dysphagia, unspecified (principal)

== ENCOUNTER → 2017-08-13 | Outpatient (CLI) | payer OTHER ==
[~2017-08-13] MED LIST changes: -E-Z-GAS II EFFERVESCENT PACKET (SODIUM BICARB./CITRIC ACID/SIMETHICONE) As Ordered ONE; -E-Z-HD 98% w/w 340GM SUSP BTL As Ordered ONE; -E-Z-PAQUE 96% w/w SUSP 176GM BTL As Ordered ONE
--- NOTE | 2017-09-09 01:01 | ECWPNPC ---
PATIENT NAME: NOE SIDDIQUI : 1970 GENDER: FEMALE VISIT DATE: 08/13/2017 DISCHARGE DATE: 08/13/17 1641 VISIT LOCKED DATE TIME: PHYSICIAN: CHANTAL LAGUNA RESOURCE: CHANTAL LAGUNA REASON FOR APPOINTMENT 1. NECK PAIN HISTORY OF PRESENT ILLNESS HISTORY OF PRESENT ILLNESS: PAIN THE PATIENT DESCRIBES THE PAIN... FALL RISK SCREENING: SCREENING :NO FALLS IN THE PAST YEAR TODAY'S VISIT: NOTES: SAW ENT - HAS NOT YET ATTENDED PHYSICAL THERAPY FOR [facility]. SAW DR SHOEMAKER 07/09/17 - NEW MRI OF NECK DONE 07/07/17 - IS HAVING REC FOR NEW SURGERY XRAYS OF SACRAL AREA, HIP AND LUMBAR SPINE. . CURRENT MEDICATIONS TAKING IMITREX 100 MG TABLET ORALLY NEEDED TAKING ONDANSETRON 8 MG TABLET DISPERSIBLE ORALLY TID PRN TAKING TRAMADOL HCL 50 MG TABLET ORALLY UP TO 8 PER DAY TAKING SINGULAIR 10 MG TABLET 1 TABLET IN THE EVENING ORALLY ONCE A DAY TAKING DETROL LA 4 MG CAPSULE EXTENDED RELEASE 24 HOUR 1 CAPSULE ORALLY ONCE A DAY TAKING VIVELLE-DOT 0.1 MG/24HR PATCH TWICE WEEKLY 1 PATCH TO SKIN TRANSDERMAL TWO TIMES A WEEK TAKING DYMISTA 137-50 MCG/ACT SUSPENSION 1 PUFF IN EACH NOSTRIL NASALLY TWICE A DAY TAKING CLARITIN 10 MG TABLET 1 TABLET ORALLY ONCE A DAY TAKING MECLIZINE HCL 25 MG TABLET 1 TABLET NEEDED ORALLY ONCE A DAY TAKING MULTIVITAMIN 1 CAP ORALLY ONCE DAILY TAKING MAGNESIUM 1200 MG TABLET 1 TABLET ORALLY ONCE A DAY TAKING BACLOFEN 10 MG TABLET 1 TABLET WITH FOOD OR MILK ORALLY FOUR TIMES DAILY TAKING OXYCODONE HCL 10 MG TABLET 1 TABLET ORALLY Q 8-12 HOURS PRN SEVERE PAIN MDD=2 TAKING VALIUM 5 MG TABLET 1 TABLET NEEDED ORALLY Q 8-12 HOURSPRN SEVERE SPASM MDD=2 NOT-TAKING SUMATRIPTAN SUCCINATE 6 MG/0.5ML SOLUTION 0.5 ML NEEDED SUBCUTANEOUS NEEDED MEDICATION LIST REVIEWED AND RECONCILED WITH THE PATIENT PAST MEDICAL HISTORY IBS FIBROMYALGIA PTSD ESOPHAGITIS HYPERLIPIDEMIA LOW BACK PAIN MIGRAINE HEADACHES CHRONIC PELVIC PAIN SLEEP APNEA SINUSITIS C DIFF NERVES IN EYES ARE SWOLLEN ALLERGIES NORTRIPTYLINE HCL: HAIR LOSS: ALLERGY INDERAL: RASH, HIVES: ALLERGY CODEINE PHOSPHATE (FOR ALLERGIES USE ONLY): VOMITING/ NAILS: ALLERGY LYRICA: SHAKY, HAIR LOSS, ITCH: ALLERGY NEURONTIN: ANXIETY, ITCHING: ALLERGY TOPAMAX: HAIR LOSS: ALLERGY TRAZODONE HCL ER: HEADACHE: ALLERGY ZOCOR: BODY ACHE: SIDE EFFECTS MORPHINE SULFATE: VOMITING/ MIGRAINE: SIDE EFFECTS DEPAKOTE: HIVES: ALLERGY BOTOX: ITCHES / SWELLING: ALLERGY SURGICAL HISTORY TONSILLECTOMY, ADENOIDECTOMY, REPAIR OF DEVIATED SEPTUM, DRAINAGE OF SINUSES 2011 FUSION L2 L3 2009 LAP KENNETH 2008 HYSTERECTOMY (TOTAL WITH SALPINGO-OOPHORECTOMY) WITH BLADDER AND PELVIC REPAIR 2003 SEVERAL PELVIC SURGURIES POST FOR PELVIC FLOOR ISSUES (HAS CHRONIC BOWEL AND BLADDER ISSUES A RESIDUAL). C-5 THROUGH C7 FUSION 2017 CYST REMOVED IN RIGHT LABIA AREA 05-22-2017 SOCIAL HISTORY GENERAL: TOBACCO USE ARE YOU A:NONSMOKER CAFFEINE CAFFEINE USE?YES HOW OFTEN AND HOW MUCH? 1 CUP PER DAY 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 NEW PATIENT PAIN DIARY TODAY'S VISITNOTES FROM 0-10, WHAT LEVEL IS YOUR PAIN TODAY?0 PAIN CLINIC PFS, CLERGY, PUBLIC HEALTH REFERRALS PFS REFERRAL NEEDED?NO CLERGY REFERRAL NEEDED?NO PUBLIC HEALTH REFERRAL NEEDED?NO WAS THE PROVIDER NOTIFIED OF ANY PERTINENT INFO?YES HAS THE PATIENT BEEN EDUCATED REGARDING HIS/HER PLAN OF CARE?YES HAS THE PATIENT BEEN EDUCATED REGARDING PAIN, THE RISK FOR PAIN, THE IMPORTANCE OF EFFECTIVE PAIN MANAGEMENT, AND THE PAIN ASSESSMENT PROCESS?YES REVIEWED BY: DS. HOSPITALIZATION/MAJOR DIAGNOSTIC PROCEDURE SEE ABOVE REVIEW OF SYSTEMS REVIEWED BY: PROVIDER: CHANTAL GAONA . CONSTITUTIONAL: ANY CHANGE IN YOUR MEDICAL CONDITION? YES, MRI OF NECK DONE, PT STATES C3-C4 ARE WORSE, PT STATES SHE SAW DR SHOEMAKER AND DR PETERS. PT STATES DR PETERS RECOMMENDED NECK SURGERY BASED ON PT'S S/S AND MRI OF NECK DONE AT [facility] 07/07/17 . CHILLS NO . FEVER NO . INFECTION: DO YOU HAVE NEW INFECTIONS? NO . DO YOU HAVE HISTORY OF MRSA? NO . MUSCULOSKELETAL: ANY NEW PATTERNS OF PAIN OR NUMBNESS? NO . GASTROENTEROLOGY: ANY NEW CHANGE IN BOWEL CONTROL? NO . GENITOURINARY: ANY NEW CHANGE IN BLADDER CONTROL? NO . IS THERE A CHANCE YOU COULD BE ? NO . HEMATOLOGY/LYMPH: DO YOU TAKE ANY BLOOD THINNERS? (FOR EXAMPLE- COUMADIN, PLAVIX, AGGRENOX, PLATEL, PRADAXA, OR XARELTO) NO . WHEN WAS YOUR LAST DOSE? DATE: TIME: . NEUROLOGY: HAVE YOU FALLEN IN THE PAST 6 MONTHS? NO . ANY NEW EXTREMITY NUMBNESS OR WEAKNESS? NO . CARDIOLOGY: DO YOU HAVE A PACEMAKER OR DEFIBRILLATOR? NO . RESPIRATORY: HAVE YOU BEEN SICK IN THE PAST WEEK? NO . FEVER NO . FLU LIKE SYMPTOMS? NO . COUGH NO . INTEGUMENTARY: DO YOU HAVE ANY RASHES OR OPEN SORES? NO . ALLERGIC/IMMUNO: ARE YOU ALLERGIC TO SHELLFISH OR IV DYE? NO . ANY NEW ALLERGIES? NO . PSYCHIATRIC: DO YOU HAVE THOUGHTS OF HURTING YOURSELF OR SOMEONE ELSE? NO . ARE YOU ABUSED, NEGLECTED, OR IN AN UNSAFE ENVIRONMENT? NO . ENDOCRINOLOGY: ARE YOU DIABETIC? NO . OTHER: DO YOU NEED ANY PRESCRIPTIONS? YES, OXYCODONE, VALIUM, BACLOFEN . IF YES, PLEASE LIST: ____ . ANY NEW PROBLEMS WITH YOUR MEDICATIONS? NO . WHEN DID YOU LAST EAT? ____ . WHEN DID YOU LAST DRINK? ____ . WHAT DID YOU LAST DRINK? ____ . NAME OF PERSON DRIVING YOU HOME? ____ . DO YOU HAVE ANY OTHER QUESTIONS OR CONCERNS YES, PT ASKING FOR REFERRAL STILL NOT IN PLACE, INITIALLY REQUESTED MARCH 2017. NECK, SACRAL ARE, LEFT HIP, LEG AND KNEE . VITAL SIGNS WT 140 LBS, HT 67 IN, BMI 21.92 INDEX, BP 127/81 MM HG, HR 93 /MIN, RR 16 /MIN, TEMP 97.8 F, OXYGEN SAT % 95, REVIEWED BY: EM. EXAMINATION GENERAL EXAMINATION: PSYCHALERT , ORIENTED X 3 , APPROPRIATE MOOD AND AFFECT . HEENT:VOICE SOFT, RASPY/HOARSE. CHEST:SWOLLEN LYMPH NODES BILATERAL AXILLA L>R, TENDER OVER BILATERAL GROIN AND POPLITEAL SPACES . LUNGS:CLEAR TO AUSCULTATION BILATERALLY. HEART:HEART RATE REGULAR. MUSCULOSKELETAL:GENERALIZED WEAKNESS BILATERAL UPPER AND LOWER EXTREMITIES. TENDERNESS ABOVE AND BELOW THE WAIST, BOTH SIDES OF THE BODY, CONSISTANT WITH FIBROMYALGIA. SPECIFIC TRIGGER POINTS ARE ELICTED WITH PALPATION OVER THE CERVICAL PARASPINOUS MUSCLES AND ACROSS THE TRAPEZIUS. SLOW TO RISE TO STANDING POSITION. POSTURE UPRIGHT, GAIT ANTALGIC. JOINTS:BILATERAL, ANKLE , ELBOW , KNEE , SHOULDER , WRIST , PAIN , SWELLING . 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 CLINICAL NOTES: ISTOP REGISTRY REVIEWED AND DEMNOSTRATES COMPLLIANCE. (REF # [id number]) BRINGS IN MEDICATIONS WHICH IS APPROPRIATE FOR WHAT WAS DISPENSED. RECENT URINE TOXICOLOGY REVIEWED. NO UNAUTHORIZED MEDICATIONS. NO ILLICIT SUBSTANCES AND PRESCRIBED MEDICATIONS WERE PRESENT. PROCEDURE CODES FA211 ESTABILISHED PATIENT [facility] CHARGE DISPOSITION & COMMUNICATION FOLLOW UP 4-6 WEEKS (REASON: [place] - DR NADEGE PETERS ENT [phone] NEED OFFICE NOTES. ) ELECTRONICALLY SIGNED BY PARMJIT LOVING ON 09/08/2017 AT 09:56 PM EST DISCLAIMER : THIS IS A VISIT SUMMARY EXTRACTED FROM THE [employer] CHART. IT IS NOT A COPY OF THE [employer] PROGRESS NOTE. MELANY
== END ==
LOC: M PAIN 15:00
PROVIDERS: ATTEND Nurse Practitioner Family
DX: M96.1 Postlaminectomy syndrome, not elsewhere classified (principal); M79.1 Myalgia; Z79.891 Long term (current) use of opiate analgesic; M06.4 Inflammatory polyarthropathy; Z79.899 Other long term (current) drug therapy; Z88.5 Allergy status to narcotic agent; Z88.8 Allergy status to other drugs, medicaments and biological substances

== ENCOUNTER → 2017-09-12 | Outpatient (CLI) | payer OTHER ==
--- NOTE | 2017-10-12 02:04 | ECWPNPC ---
PATIENT NAME: NOE SIDDIQUI : 1970 GENDER: FEMALE VISIT DATE: 09/12/2017 DISCHARGE DATE: 09/12/17 1715 VISIT LOCKED DATE TIME: PHYSICIAN: CHANTAL LAGUNA RESOURCE: CHANTAL LAGUNA REASON FOR APPOINTMENT 1. NECK PAIN HISTORY OF PRESENT ILLNESS HISTORY OF PRESENT ILLNESS: PAIN THE PATIENT DESCRIBES THE PAIN... FALL RISK SCREENING: SCREENING :NO FALLS IN THE PAST YEAR TODAY'S VISIT: NOTES: RATES PAIN TODAY 04/22. SAW DR DELACRUZ /ORTHO FOR HIPS AND KNEES - FEELS IT'S RELATED TO RADICULAR PAIN. STILL WITH SIG VOICE PROBLEMS. STILL WITH ISSUES WITH SWALLOWING. PROLONGED ACTIVITY AGGRAVATES THE PAIN. HAVING INTENSE PAIN IN NECK WITH RADIATION DOWN LEFT ARM.. CURRENT MEDICATIONS TAKING IMITREX 100 MG TABLET ORALLY NEEDED TAKING ONDANSETRON 8 MG TABLET DISPERSIBLE ORALLY TID PRN TAKING TRAMADOL HCL 50 MG TABLET ORALLY UP TO 8 PER DAY TAKING SINGULAIR 10 MG TABLET 1 TABLET IN THE EVENING ORALLY ONCE A DAY TAKING DETROL LA 4 MG CAPSULE EXTENDED RELEASE 24 HOUR 1 CAPSULE ORALLY ONCE A DAY TAKING VIVELLE-DOT 0.1 MG/24HR PATCH TWICE WEEKLY 1 PATCH TO SKIN TRANSDERMAL TWO TIMES A WEEK TAKING DYMISTA 137-50 MCG/ACT SUSPENSION 1 PUFF IN EACH NOSTRIL NASALLY TWICE A DAY TAKING CLARITIN 10 MG TABLET 1 TABLET ORALLY ONCE A DAY TAKING MECLIZINE HCL 25 MG TABLET 1 TABLET NEEDED ORALLY ONCE A DAY TAKING MULTIVITAMIN 1 CAP ORALLY ONCE DAILY TAKING MAGNESIUM 1200 MG TABLET 1 TABLET ORALLY ONCE A DAY TAKING OXYCODONE HCL 10 MG TABLET 1 TABLET ORALLY Q 8-12 HOURS PRN SEVERE PAIN MDD=2 TAKING VALIUM 5 MG TABLET 1 TABLET NEEDED ORALLY Q 8-12 HOURSPRN SEVERE SPASM MDD=2 TAKING BACLOFEN 10 MG TABLET 1 TABLET WITH FOOD OR MILK ORALLY FOUR TIMES DAILY NOT-TAKING SUMATRIPTAN SUCCINATE 6 MG/0.5ML SOLUTION 0.5 ML NEEDED SUBCUTANEOUS NEEDED MEDICATION LIST REVIEWED AND RECONCILED WITH THE PATIENT PAST MEDICAL HISTORY IBS FIBROMYALGIA PTSD ESOPHAGITIS HYPERLIPIDEMIA LOW BACK PAIN MIGRAINE HEADACHES CHRONIC PELVIC PAIN SLEEP APNEA SINUSITIS C DIFF NERVES IN EYES ARE SWOLLEN ALLERGIES NORTRIPTYLINE HCL: HAIR LOSS: ALLERGY INDERAL: RASH, HIVES: ALLERGY CODEINE PHOSPHATE (FOR ALLERGIES USE ONLY): VOMITING/ NAILS: ALLERGY LYRICA: SHAKY, HAIR LOSS, ITCH: ALLERGY NEURONTIN: ANXIETY, ITCHING: ALLERGY TOPAMAX: HAIR LOSS: ALLERGY TRAZODONE HCL ER: HEADACHE: ALLERGY ZOCOR: BODY ACHE: SIDE EFFECTS MORPHINE SULFATE: VOMITING/ MIGRAINE: SIDE EFFECTS DEPAKOTE: HIVES: ALLERGY BOTOX: ITCHES / SWELLING: ALLERGY SURGICAL HISTORY TONSILLECTOMY, ADENOIDECTOMY, REPAIR OF DEVIATED SEPTUM, DRAINAGE OF SINUSES 2011 FUSION L2 L3 2009 LAP KENNETH 2008 HYSTERECTOMY (TOTAL WITH SALPINGO-OOPHORECTOMY) WITH BLADDER AND PELVIC REPAIR 2003 SEVERAL PELVIC SURGURIES POST FOR PELVIC FLOOR ISSUES (HAS CHRONIC BOWEL AND BLADDER ISSUES A RESIDUAL). C-5 THROUGH C7 FUSION 2016 CYST REMOVED IN RIGHT LABIA AREA 05-22-2017 SOCIAL HISTORY GENERAL: TOBACCO USE ARE YOU A:NONSMOKER CAFFEINE CAFFEINE USE?YES HOW OFTEN AND HOW MUCH? 1 CUP PER DAY MARITAL STATUS: . ZOROASTRIAN [id number] NONE LANGUAGE LANGUAGES SPOKEN:BELARUSIAN 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 NEW PATIENT PAIN DIARY TODAY'S VISITNOTES FROM 0-10, WHAT LEVEL IS YOUR PAIN TODAY?0 PAIN CLINIC PFS, CLERGY, PUBLIC HEALTH REFERRALS PFS REFERRAL NEEDED?NO CLERGY REFERRAL NEEDED?NO PUBLIC HEALTH REFERRAL NEEDED?NO WAS THE PROVIDER NOTIFIED OF ANY PERTINENT INFO?YES HAS THE PATIENT BEEN EDUCATED REGARDING HIS/HER PLAN OF CARE?YES HAS THE PATIENT BEEN EDUCATED REGARDING PAIN, THE RISK FOR PAIN, THE IMPORTANCE OF EFFECTIVE PAIN MANAGEMENT, AND THE PAIN ASSESSMENT PROCESS?YES REVIEWED BY: DS. ADVANCE DIRECTIVES HEALTH CARE PROXY?YES ANNEL JONES-MOTHER DO YOU HAVE A DNR?NO LIVING WILL?NO POWER OF COUNTER POCKET SEWER?NO HOSPITALIZATION/MAJOR DIAGNOSTIC PROCEDURE SEE ABOVE REVIEW OF SYSTEMS REVIEWED BY: PROVIDER: . CONSTITUTIONAL: ANY CHANGE IN YOUR MEDICAL CONDITION? NO . CHILLS NO . FEVER NO . INFECTION: DO YOU HAVE NEW INFECTIONS? NO . DO YOU HAVE HISTORY OF MRSA? NO . MUSCULOSKELETAL: ANY NEW PATTERNS OF PAIN OR NUMBNESS? NO . GASTROENTEROLOGY: ANY NEW CHANGE IN BOWEL CONTROL? NO . GENITOURINARY: ANY NEW CHANGE IN BLADDER CONTROL? NO . IS THERE A CHANCE YOU COULD BE ? NO . HEMATOLOGY/LYMPH: DO YOU TAKE ANY BLOOD THINNERS? (FOR EXAMPLE- COUMADIN, PLAVIX, AGGRENOX, PLATEL, PRADAXA, OR XARELTO) NO . WHEN WAS YOUR LAST DOSE? DATE: TIME: . NEUROLOGY: HAVE YOU FALLEN IN THE PAST 6 MONTHS? NO . ANY NEW EXTREMITY NUMBNESS OR WEAKNESS? NO . CARDIOLOGY: DO YOU HAVE A PACEMAKER OR DEFIBRILLATOR? NO . RESPIRATORY: HAVE YOU BEEN SICK IN THE PAST WEEK? NO . FEVER NO . FLU LIKE SYMPTOMS? NO . COUGH NO . INTEGUMENTARY: DO YOU HAVE ANY RASHES OR OPEN SORES? NO . ALLERGIC/IMMUNO: ARE YOU ALLERGIC TO SHELLFISH OR IV DYE? NO . ANY NEW ALLERGIES? NO . PSYCHIATRIC: DO YOU HAVE THOUGHTS OF HURTING YOURSELF OR SOMEONE ELSE? NO . ARE YOU ABUSED, NEGLECTED, OR IN AN UNSAFE ENVIRONMENT? NO . ENDOCRINOLOGY: ARE YOU DIABETIC? NO . OTHER: DO YOU NEED ANY PRESCRIPTIONS? NO . IF YES, PLEASE LIST: ____ . ANY NEW PROBLEMS WITH YOUR MEDICATIONS? NO . WHEN DID YOU LAST EAT? ____ . WHEN DID YOU LAST DRINK? ____ . WHAT DID YOU LAST DRINK? ____ . NAME OF PERSON DRIVING YOU HOME? ____ . DO YOU HAVE ANY OTHER QUESTIONS OR CONCERNS YES, NECK INJECTIONS? DR DELACRUZ APPT RESULTS. RHEUMATOID APPT 10/04/17 . VITAL SIGNS WT 140 LBS, HT 67 IN, BMI 21.92 INDEX, BP 111/73 MM HG, HR 74 /MIN, RR 16 /MIN, TEMP 99.5 F, OXYGEN SAT % 96, REVIEWED BY: EM. EXAMINATION GENERAL EXAMINATION: HEENT:VOICE RASPY AND WITH POOR POWER. LUNGS:CLEAR TO AUSCULTATION BILATERALLY. HEART:HEART RATE REGULAR. MUSCULOSKELETAL:MUSCLE STRENGTH TESTING 3/5 RLE, 4+/5 LEFT LOWER EXTREMITY, TRIGGER POINTS: , ELICITED WITH PALPATION OVER CERVICAL SPINOUS PROCESSES AND ACROSS THE TRAPEZIUS MUSCLES BILATERALLY. RESTRICTION OF ROM IS NOTED. . 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 CONTINUE CURRENT MEDS. CALL WHEN SCRIPTS DUE. DISPOSITION & COMMUNICATION FOLLOW UP AFTER RAMILA (REASON: [place] MRI BRAIN AND EMG'S DONE AT [facility]. CHECK AUTH FOR EMG/NCS LOWER EXTREMITIES) ELECTRONICALLY SIGNED BY PARMJIT LOVING ON 10/09/2017 AT 08:48 AM EST DISCLAIMER : THIS IS A VISIT SUMMARY EXTRACTED FROM THE [employer] CHART. IT IS NOT A COPY OF THE [employer] PROGRESS NOTE. MELANY
== END ==
LOC: M PAIN 15:00
PROVIDERS: ATTEND Nurse Practitioner Family
DX: M96.1 Postlaminectomy syndrome, not elsewhere classified (principal); M79.1 Myalgia; M06.4 Inflammatory polyarthropathy; Z79.891 Long term (current) use of opiate analgesic; Z79.899 Other long term (current) drug therapy; Z88.5 Allergy status to narcotic agent; Z88.8 Allergy status to other drugs, medicaments and biological substances

== ENCOUNTER → 2017-10-11 | Outpatient (CLI) | payer OTHER | LOC: M PAIN 14:30 | DX: M96.1 Postlaminectomy syndrome, not elsewhere classified (principal); M79.1 Myalgia; M06.4 Inflammatory polyarthropathy; F43.10 Post-traumatic stress disorder, unspecified; E78.5 Hyperlipidemia, unspecified; G43.909 Migraine, unspecified, not intractable, without status migrainosus; G47.30 Sleep apnea, unspecified; Z88.5 Allergy status to narcotic agent; Z88.8 Allergy status to other drugs, medicaments and biological substances; Z79.891 Long term (current) use of opiate analgesic; Z79.899 Other long term (current) drug therapy | CPT/HCPCS: G0463 ==

== ENCOUNTER → 2017-10-28 | Outpatient (CLI) | payer OTHER ==
[~2017-10-28] MED LIST changes: -/DULO30CA; -ACET500C; +BUPIVACAINE HCL 0.25% 10 ML VIAL As Ordered; +BUPIVACAINE HCL 0.25% 30 ML VIAL As Ordered; -CALCCHW12 PO; -DETR4CAP PO; -ESTR62CR VA; -FEXO30TA PO; -FLEXERIL PO; -HORMONES OR; -IBUP600T PO; -LECITHIN; -LECITHIN PO; -LIPI20TA OR; -MIDRCAP PO; -NAPR500T OR; -NEXI20CA OR; -OXYC10TA12 PO; -PREG50CA PO; -PROBIOTICS OR; -PROP60TA OR; -SUMA125TA OR; -THERGRAN PO; -TRAM50TA2 PO; +TRIAMCINOLONE ACETONIDE SUSP 40 MG/ML VIAL (J3301) As Ordered; -VIVELLE PATCH EXT; -VIVELLE TOP; -[UNRECOGNIZED DRUG - OTHER] OR; -antibiotic PO; +diazePAM 5 MG TAB As Ordered; +oxyCODONE 5MG TAB As Ordered; -oxycodone PO
== END ==
LOC: M PAIN 13:30
DX: G89.29 Other chronic pain (principal); M25.511 Pain in right shoulder; M25.512 Pain in left shoulder; M54.2 Cervicalgia; M79.1 Myalgia; F43.10 Post-traumatic stress disorder, unspecified; E78.5 Hyperlipidemia, unspecified; G43.909 Migraine, unspecified, not intractable, without status migrainosus; G47.30 Sleep apnea, unspecified; Z88.5 Allergy status to narcotic agent; Z88.8 Allergy status to other drugs, medicaments and biological substances; Z79.891 Long term (current) use of opiate analgesic; Z79.899 Other long term (current) drug therapy
CPT/HCPCS: J3301

== ENCOUNTER → 2017-11-13 | Outpatient (CLI) | payer OTHER | LOC: M PAIN 13:45 | DX: M96.1 Postlaminectomy syndrome, not elsewhere classified (principal); M06.4 Inflammatory polyarthropathy; M79.1 Myalgia; R42 Dizziness and giddiness; F43.10 Post-traumatic stress disorder, unspecified; K21.9 Gastro-esophageal reflux disease without esophagitis; E78.5 Hyperlipidemia, unspecified; G43.909 Migraine, unspecified, not intractable, without status migrainosus; G47.30 Sleep apnea, unspecified; Z79.891 Long term (current) use of opiate analgesic; Z79.899 Other long term (current) drug therapy; Z88.8 Allergy status to other drugs, medicaments and biological substances; Z88.5 Allergy status to narcotic agent | CPT/HCPCS: G0463 ==

== ENCOUNTER → 2017-12-17 | Outpatient (CLI) | payer OTHER | LOC: M PAIN 10:30 | DX: M96.1 Postlaminectomy syndrome, not elsewhere classified (principal); M79.1 Myalgia; M06.4 Inflammatory polyarthropathy; R42 Dizziness and giddiness; E78.5 Hyperlipidemia, unspecified; G43.909 Migraine, unspecified, not intractable, without status migrainosus; Z79.891 Long term (current) use of opiate analgesic; Z79.899 Other long term (current) drug therapy; Z88.8 Allergy status to other drugs, medicaments and biological substances | CPT/HCPCS: G0463 ==

== ENCOUNTER → 2018-01-14 | Outpatient (CLI) | payer OTHER | LOC: M PAIN 15:00 | DX: G89.29 Other chronic pain (principal); M79.1 Myalgia; M54.2 Cervicalgia; M25.511 Pain in right shoulder; M25.512 Pain in left shoulder; M54.6 Pain in thoracic spine; F43.10 Post-traumatic stress disorder, unspecified; E78.5 Hyperlipidemia, unspecified; G43.909 Migraine, unspecified, not intractable, without status migrainosus; G47.30 Sleep apnea, unspecified; Z79.891 Long term (current) use of opiate analgesic; Z79.899 Other long term (current) drug therapy; Z88.5 Allergy status to narcotic agent; Z88.8 Allergy status to other drugs, medicaments and biological substances | CPT/HCPCS: J3301 ==

== ENCOUNTER → 2018-01-28 | Outpatient (CLI) | payer OTHER | LOC: M PAIN 14:15 | DX: M96.1 Postlaminectomy syndrome, not elsewhere classified (principal); M79.1 Myalgia; M06.4 Inflammatory polyarthropathy; R42 Dizziness and giddiness; F43.10 Post-traumatic stress disorder, unspecified; E78.5 Hyperlipidemia, unspecified; G43.909 Migraine, unspecified, not intractable, without status migrainosus; G47.30 Sleep apnea, unspecified; Z79.891 Long term (current) use of opiate analgesic; Z79.899 Other long term (current) drug therapy; Z88.5 Allergy status to narcotic agent; Z88.8 Allergy status to other drugs, medicaments and biological substances | CPT/HCPCS: G0463 ==

== ENCOUNTER → 2018-02-20 | Outpatient (CLI) | payer OTHER | LOC: M PAIN 08:45 | DX: G89.29 Other chronic pain (principal); M54.81 Occipital neuralgia; M79.7 Fibromyalgia; F43.10 Post-traumatic stress disorder, unspecified; E78.5 Hyperlipidemia, unspecified; G43.909 Migraine, unspecified, not intractable, without status migrainosus; G47.30 Sleep apnea, unspecified; Z79.891 Long term (current) use of opiate analgesic; Z79.899 Other long term (current) drug therapy; Z88.5 Allergy status to narcotic agent; Z88.8 Allergy status to other drugs, medicaments and biological substances | CPT/HCPCS: J3301 ==

== ENCOUNTER → 2018-03-17 | Outpatient (CLI) | payer OTHER | LOC: M PAIN 14:30 | DX: M96.1 Postlaminectomy syndrome, not elsewhere classified (principal); M79.1 Myalgia; M06.4 Inflammatory polyarthropathy; R42 Dizziness and giddiness; G43.909 Migraine, unspecified, not intractable, without status migrainosus; F43.10 Post-traumatic stress disorder, unspecified; E78.5 Hyperlipidemia, unspecified; G47.30 Sleep apnea, unspecified; Z79.891 Long term (current) use of opiate analgesic; Z79.899 Other long term (current) drug therapy; Z88.5 Allergy status to narcotic agent; Z88.8 Allergy status to other drugs, medicaments and biological substances | CPT/HCPCS: G0463 ==

== ENCOUNTER → 2018-06-10 | Outpatient (CLI) | payer OTHER | LOC: M PAIN 14:15 | DX: M96.1 Postlaminectomy syndrome, not elsewhere classified (principal); M79.1 Myalgia; M06.4 Inflammatory polyarthropathy; R42 Dizziness and giddiness; E78.5 Hyperlipidemia, unspecified; G43.909 Migraine, unspecified, not intractable, without status migrainosus; G47.30 Sleep apnea, unspecified; F43.10 Post-traumatic stress disorder, unspecified; Z79.891 Long term (current) use of opiate analgesic; Z79.899 Other long term (current) drug therapy; Z88.5 Allergy status to narcotic agent; Z88.8 Allergy status to other drugs, medicaments and biological substances | CPT/HCPCS: G0463 ==

== ENCOUNTER → 2018-12-24 | Outpatient (CLI) | payer OTHER ==
[~2018-12-24] MED LIST changes: +/DULO30CA; +ACET500C; -BUPIVACAINE HCL 0.25% 10 ML VIAL As Ordered; -BUPIVACAINE HCL 0.25% 30 ML VIAL As Ordered; +CALCCHW12 PO; +DETR4CAP PO; +ESTR62CR VA; +FEXO30TA PO; +FLEXERIL PO; +HORMONES OR; +IBUP600T PO; +LECITHIN; +LECITHIN PO; +LIPI20TA OR; +MIDRCAP PO; +NAPR500T OR; +NEXI20CA OR; +OXYC10TA12 PO; +PREG50CA PO; +PROBIOTICS OR; +PROP60TA OR; +SUMA125TA OR; +THERGRAN PO; +TRAM50TA2 PO; -TRIAMCINOLONE ACETONIDE SUSP 40 MG/ML VIAL (J3301) As Ordered; +VIVELLE PATCH EXT; +VIVELLE TOP; +[UNRECOGNIZED DRUG - OTHER] OR; +antibiotic PO; -diazePAM 5 MG TAB As Ordered; -oxyCODONE 5MG TAB As Ordered; +oxycodone PO
--- NOTE | 2018-12-25 01:31 | ECWPNPC ---
PATIENT NAME: NOE SIDDIQUI : 1970 GENDER: FEMALE VISIT DATE: 12/24/2018 DISCHARGE DATE: 12/24/18 1136 VISIT LOCKED DATE TIME: PHYSICIAN: ABIMAEL FENG RESOURCE: ABIMAEL FENG REASON FOR APPOINTMENT 1. NECK PAIN- SW PT HISTORY OF PRESENT ILLNESS HISTORY OF PRESENT ILLNESS: PATIENT IS HERE TO DISCUSS ONGOING LOWER BACK PAIN THAT RADIATES DOWN BOTH LEGS.SHE SAYS SHE HAS WEAKNESS IN LOWER EXTREMITIES AND HAS DIFFICULTY CARRYING ANYTHING HEAVY OR MORE THAN 5 LBS. SHE HAS DIFFICULTYW ALKING > 2 BLOCKS. SHE SAYS HER MEDICATION IS WORKING RIGHT NOW.SHE DESCRIBES PAIN BURNING. PAIN THE PATIENT DESCRIBES THE PAIN... SEVERITY - PAIN SCORE OF6/10 PAIN IS INCREASED BY:PROLONGED STANDING FALL RISK SCREENING: SCREENING : NO FALLS IN THE PAST YEAR. CURRENT MEDICATIONS TAKING IMITREX 100 MG TABLET ORALLY NEEDED TAKING SINGULAIR 10 MG TABLET 1 TABLET IN THE EVENING ORALLY ONCE A DAY TAKING DETROL LA 4 MG CAPSULE EXTENDED RELEASE 24 HOUR 1 CAPSULE ORALLY ONCE A DAY TAKING VIVELLE-DOT 0.1 MG/24HR PATCH TWICE WEEKLY 1 PATCH TO SKIN TRANSDERMAL TWO TIMES A WEEK TAKING DYMISTA 137-50 MCG/ACT SUSPENSION 1 PUFF IN EACH NOSTRIL NASALLY TWICE A DAY TAKING CLARITIN 10 MG TABLET 1 TABLET ORALLY ONCE A DAY TAKING MULTIVITAMIN 1 CAP ORALLY ONCE DAILY TAKING MIRALAX - PACKET 1 PACKET MIXED WITH 8 OUNCES OF FLUID ORALLY ONCE A DAY TAKING SUMATRIPTAN SUCCINATE 6 MG/0.5ML SOLUTION 0.5 ML NEEDED SUBCUTANEOUS NEEDED TAKING MECLIZINE HCL 25 MG TABLET 1 TABLET NEEDED ORALLY BID PRN NAUSEA TAKING BACLOFEN 10 MG TABLET 1 TABLET WITH FOOD OR MILK ORALLY FOUR TIMES DAILY TAKING VALIUM 5 MG TABLET 1 TABLET NEEDED ORALLY Q 8-12 HOURSPRN SEVERE SPASM MDD=2 TAKING OXYCODONE HCL 10 MG TABLET 1 TABLET ORALLY Q 8-12 HOURS PRN SEVERE PAIN MDD=2 TAKING TRAMADOL HCL 50 MG TABLET 2 TAB ORALLY Q 4-6 HRS PRN PAIN MDD=6 TAKING ZOFRAN 8 MG TABLET 1 TABLET ORALLY TWICE A DAY PRN NAUSEA NOT-TAKING ONDANSETRON 8 MG TABLET DISPERSIBLE 1 TAB ORALLY TID PRN NAUSEA, NOTES: DUPLICATE NOT-TAKING ONDANSETRON HCL 8 MG TABLET 1 TABLET ORALLY Q 8 PRN NAUSEA, NOTES: DUPLICATE NOT-TAKING MAGNESIUM 1200 MG TABLET 1 TABLET ORALLY ONCE A DAY, NOTES: NONE LATELY MEDICATION LIST REVIEWED AND RECONCILED WITH THE PATIENT PAST MEDICAL HISTORY IBS FIBROMYALGIA PTSD ESOPHAGITIS HYPERLIPIDEMIA LOW BACK PAIN MIGRAINE HEADACHES CHRONIC PELVIC PAIN SLEEP APNEA SINUSITIS C DIFF NERVES IN EYES ARE SWOLLEN CHRONIC NECK PAIN ALLERGIES NORTRIPTYLINE HCL: HAIR LOSS: ALLERGY INDERAL: RASH, HIVES: ALLERGY CODEINE PHOSPHATE (FOR ALLERGIES USE ONLY): VOMITING/ NAILS: ALLERGY LYRICA: SHAKY, HAIR LOSS, ITCH: ALLERGY NEURONTIN: ANXIETY, ITCHING: ALLERGY TOPAMAX: HAIR LOSS: ALLERGY TRAZODONE HCL ER: HEADACHE: ALLERGY ZOCOR: BODY ACHE: SIDE EFFECTS MORPHINE SULFATE: VOMITING/ MIGRAINE: SIDE EFFECTS DEPAKOTE: HIVES: ALLERGY BOTOX: ITCHES / SWELLING: ALLERGY SURGICAL HISTORY TONSILLECTOMY, ADENOIDECTOMY, REPAIR OF DEVIATED SEPTUM, DRAINAGE OF SINUSES 2011 FUSION L2 L3 2009 LAP KENNETH 2007 HYSTERECTOMY (TOTAL WITH SALPINGO-OOPHORECTOMY) WITH BLADDER AND PELVIC REPAIR 2003 SEVERAL PELVIC SURGURIES POST FOR PELVIC FLOOR ISSUES (HAS CHRONIC BOWEL AND BLADDER ISSUES A RESIDUAL). C-5 THROUGH C7 FUSION 2016 CYST REMOVED IN RIGHT LABIA AREA 05-22-2017 FAMILY HISTORY STRONG FAMILY HISTORY OF AUTO IMMUNE DISEASES SUCH MULTIPLE SCLEROSIS, PSORIATIC ARTHRITIS, AND GOUT. SOCIAL HISTORY GENERAL: TOBACCO USE ARE YOU A:NEVER SMOKER RECREATIONAL DRUG USE DRUG USE?NO CAFFEINE CAFFEINE USE?YES HOW OFTEN AND HOW MUCH? 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 MARITAL STATUS: . NEW PATIENT PAIN DIARY TODAY'S VISITNOTES FROM 0-10, WHAT LEVEL IS YOUR PAIN TODAY?0 PAIN CLINIC PFS, CLERGY, PUBLIC HEALTH REFERRALS PFS REFERRAL NEEDED?NO CLERGY REFERRAL NEEDED?NO PUBLIC HEALTH REFERRAL NEEDED?NO WAS THE PROVIDER NOTIFIED OF ANY PERTINENT INFO?YES HAS THE PATIENT BEEN EDUCATED REGARDING HIS/HER PLAN OF CARE?YES HAS THE PATIENT BEEN EDUCATED REGARDING PAIN, THE RISK FOR PAIN, THE IMPORTANCE OF EFFECTIVE PAIN MANAGEMENT, AND THE PAIN ASSESSMENT PROCESS?YES ADVANCE DIRECTIVE ADVANCE DIRECTIVE DISCUSSED WITH PATIENT:YES HCP - ANGELICA JONES (MOTHER) REVIEWED WITH PT 06/10/18 1148 LASREVIEWED WITH PATIENT 12/24/18 1023 JS. HOSPITALIZATION/MAJOR DIAGNOSTIC PROCEDURE SEE ABOVE REVIEW OF SYSTEMS REVIEWED BY: PROVIDER: ____CH_ . CONSTITUTIONAL: ANY CHANGE IN YOUR MEDICAL CONDITION? NO . CHILLS NO . FEVER NO . INFECTION: DO YOU HAVE NEW INFECTIONS? YES, STATES SINUS INFECTION, STARTING TO CLEAR UP . DO YOU HAVE HISTORY OF MRSA? NO . MUSCULOSKELETAL: ANY NEW PATTERNS OF PAIN OR NUMBNESS? NO . GASTROENTEROLOGY: ANY NEW CHANGE IN BOWEL CONTROL? NO . GENITOURINARY: ANY NEW CHANGE IN BLADDER CONTROL? NO . IS THERE A CHANCE YOU COULD BE ? NO . HEMATOLOGY/LYMPH: DO YOU TAKE ANY BLOOD THINNERS? (FOR EXAMPLE- COUMADIN, PLAVIX, AGGRENOX, PLATEL, PRADAXA, OR XARELTO) NO . WHEN WAS YOUR LAST DOSE? DATE: TIME: . NEUROLOGY: HAVE YOU FALLEN IN THE PAST 12 MONTHS? NO . ANY NEW EXTREMITY NUMBNESS OR WEAKNESS? NO . CARDIOLOGY: DO YOU HAVE A PACEMAKER OR DEFIBRILLATOR? NO . RESPIRATORY: HAVE YOU BEEN SICK IN THE PAST WEEK? YES, STATES SINUS COLD, IMPROVING . FEVER NO . FLU LIKE SYMPTOMS? NO . COUGH NO . INTEGUMENTARY: DO YOU HAVE ANY RASHES OR OPEN SORES? NO . ALLERGIC/IMMUNO: ARE YOU ALLERGIC TO IV DYE? NO . ANY NEW ALLERGIES? NO . PSYCHIATRIC: DO YOU HAVE THOUGHTS OF HURTING YOURSELF OR SOMEONE ELSE? NO . ARE YOU ABUSED, NEGLECTED, OR IN AN UNSAFE ENVIRONMENT? NO . ENDOCRINOLOGY: ARE YOU DIABETIC? NO . OTHER: DO YOU NEED ANY PRESCRIPTIONS? YES . IF YES, PLEASE LIST: ____BACLOFEN, MECLIZINE . ANY NEW PROBLEMS WITH YOUR MEDICATIONS? NO . WHEN DID YOU LAST EAT? ____ . WHEN DID YOU LAST DRINK? ____ . WHAT DID YOU LAST DRINK? ____ . NAME OF PERSON DRIVING YOU HOME? ____ . DO YOU HAVE ANY OTHER QUESTIONS OR CONCERNS YES, WOULD LIKE TO DISCUSS RADIOFREQUENCY . VITAL SIGNS WT 147.2 LBS, HT 67 IN, BMI 23.05 INDEX, BP 114/69 MM HG, HR 78 /MIN, RR 16 /MIN, TEMP 97.1 F, OXYGEN SAT % 95%, SAFE IN ENV? (Y/N) YES, NA INITIALS AR 10:09, REVIEWED BY: ANEL. EXAMINATION GENERAL EXAMINATION: GENERAL APPEARANCE:NO ACUTE DISTRESS, WELL NOURISHED AND HYDRATED. PSYCHAPPROPRIATE MOOD AND AFFECT . LUNGS:CLEAR TO AUSCULTATION BILATERALLY, NO WHEEZES, RHONCHI, RALES. HEART:NO MURMURS, REGULAR RATE AND RHYTHM. BACK:NO CVA TENDERNESS.+TTP TO BILATERAL PARASPINAL MUSCLES.LIMITED ROM STRENGTH IN LE 3/5. REFLEXWS 2+. ASSESSMENTS SPONDYLOSIS WITHOUT MYELOPATHY OR RADICULOPATHY, LUMBOSACRAL REGION - M47.817 (PRIMARY) SPONDYLOSIS WITHOUT MYELOPATHY OR RADICULOPATHY, LUMBAR REGION - M47.816 SACROILIITIS, NOT ELSEWHERE CLASSIFIED - M46.1 LUMBAR FACET ARTHROPATHY - M46.96 TREATMENT SPONDYLOSIS WITHOUT MYELOPATHY OR RADICULOPATHY, LUMBOSACRAL REGION CONTINUE BACLOFEN TABLET, 10 MG, 1 TABLET WITH FOOD OR MILK, ORALLY, FOUR TIMES DAILY CONTINUE MECLIZINE HCL TABLET, 25 MG, 1 TABLET NEEDED, ORALLY, BID PRN NAUSEA CONTINUE VALIUM TABLET, 5 MG, 1 TABLET NEEDED, ORALLY, Q 8-12 HOURSPRN SEVERE SPASM MDD=2 CONTINUE OXYCODONE HCL TABLET, 10 MG, 1 TABLET, ORALLY, Q 8-12 HOURS PRN SEVERE PAIN MDD=2 CONTINUE TRAMADOL HCL TABLET, 50 MG, 2 TAB, ORALLY, Q 4-6 HRS PRN PAIN MDD=6 CONTINUE ZOFRAN TABLET, 8 MG, 1 TABLET, ORALLY, TWICE A DAY PRN NAUSEA NOTES: DISCUSSED WITH PATIENT THE OPTION TO HAVE RADIO FREQUENCY TO LOWER BACK. SHE WAS ADVISED SHE WILL NEED A BILATERAL FACET JOINT DX -BLOCK.L4-5, S1., ISTOP REGISTRY REVIEWED AND DEMONSTRATES COMPLLIANCE. (REF #[id number]) ) BRINGS IN MEDICATIONS WHICH IS APPROPRIATE FOR WHAT WAS DISPENSED. RECENT URINE TOXICOLOGY REVIEWED. NO UNAUTHORIZED MEDICATIONS. NO ILLICIT SUBSTANCES AND PRESCRIBED MEDICATIONS WERE PRESENT. URINE TOX TODAY., RISKS AND BENEFITS OF NARCOTIC/OPIOD MEDICATIONS WERE REVIEWED WITH PATIENT - THIS INCLUDES BUT IS NOT LIMITED TO RISK OF DEPENDANCE/DEVELOPMENT OF ADDICTION, MOOD DISTURBANCE AND DEPRESSION, OSTEOPOROSIS, HORMONAL AND LABIDAL CHANGES, RESPIRATORY DEPRESSION AND . PATIENT IS ADVISED NOT TO DRIVE OR DRINK ALCOHOL WHILE ON THESE MEDICATIONS. PREVENTIVE MEDICINE PAIN CLINIC TEACHING: PROCEDURE TEACHING REVIEWED DIAGNOSTIC FACET BLOCK PROCEDURE INFORMATION WITH PATIENT. ALSO REVIEWED PRE-PROCEDURE INSTRUCTIONS. PATIENT VERBALIZED AN UNDERSTANDING. FIDELIA CHERRY 12/24/2018 11:39:40 AM > . PROCEDURE CODES FA211 ESTABILISHED PATIENT [facility] CHARGE DISPOSITION & COMMUNICATION FOLLOW UP REASON: BILATERAL FACET JOINT DX -BLOCK.L4-5, S1 ELECTRONICALLY SIGNED BY CANDELARIA RALPH ON 12/24/2018 AT 01:56 PM EDT DISCLAIMER : THIS IS A VISIT SUMMARY EXTRACTED FROM THE [employer] CHART. IT IS NOT A COPY OF THE [employer] PROGRESS NOTE. OLIVIERD
== END ==
LOC: M PAIN 10:00
PROVIDERS: ATTEND Nurse Practitioner Family
DX: M47.817 Spondylosis without myelopathy or radiculopathy, lumbosacral region (principal); M47.816 Spondylosis without myelopathy or radiculopathy, lumbar region; M46.1 Sacroiliitis, not elsewhere classified; M79.7 Fibromyalgia; Z86.59 Personal history of other mental and behavioral disorders; E78.5 Hyperlipidemia, unspecified; G43.909 Migraine, unspecified, not intractable, without status migrainosus; G47.30 Sleep apnea, unspecified; Z86.19 Personal history of other infectious and parasitic diseases; Z88.5 Allergy status to narcotic agent; Z88.8 Allergy status to other drugs, medicaments and biological substances; Z79.899 Other long term (current) drug therapy

== ENCOUNTER → 2019-03-03 | Outpatient (CLI) | payer OTHER ==
[~2019-03-03] MED LIST changes: -/DULO30CA; +BUPIVACAINE HCL 0.25% 30 ML VIAL As Ordered ONE; +CYMB1CAP5; +ISOVUE-M 300 61% 15ML VIAL (Q9967) As Ordered ONE; +LIDOCAINE 1% SDV INJ 30 ML VIAL As Ordered ONE
--- NOTE | 2019-03-03 15:24 | REP ---
C-ARM VIEWS, LOWER LUMBAR SPINE: CLINICAL HISTORY: Pain. Multiple C-arm views performed during lower lumbar facet injections by Dr. Valenzuela. Multiple needles are seen along the lower lumbar facet joints. There are pedicle screws noted. 40 second fluoroscopy time utilized. Electronically Signed by Angel Renner MD 03/04/2019 09:26 A
--- NOTE | 2019-03-13 03:32 | ECWPNPC ---
PATIENT NAME: NOE SIDDIQUI : 1970 GENDER: FEMALE VISIT DATE: 03/03/2019 DISCHARGE DATE: 03/03/19 1054 VISIT LOCKED DATE TIME: PHYSICIAN: LATRELL ROSENTHAL MD RESOURCE: LATRELL ROSENTHAL MD REASON FOR APPOINTMENT 1. LFBD #1 HISTORY OF PRESENT ILLNESS HISTORY OF PRESENT ILLNESS: PAIN THE PATIENT DESCRIBES THE PAIN... FALL RISK SCREENING: SCREENING :NO FALLS REPORTED IN THE LAST YEAR CURRENT MEDICATIONS TAKING IMITREX 100 MG TABLET ORALLY NEEDED, NOTES: WEEKS AGO TAKING SINGULAIR 10 MG TABLET 1 TABLET IN THE EVENING ORALLY ONCE A DAY, NOTES: 03/02/192099 TAKING DETROL LA 4 MG CAPSULE EXTENDED RELEASE 24 HOUR 1 CAPSULE ORALLY ONCE A DAY, NOTES: 03/02/19999 TAKING VIVELLE-DOT 0.1 MG/24HR PATCH TWICE WEEKLY 1 PATCH TO SKIN TRANSDERMAL TWO TIMES A WEEK, NOTES: 02/27/19 TAKING DYMISTA 137-50 MCG/ACT SUSPENSION 1 PUFF IN EACH NOSTRIL NASALLY TWICE A DAY, NOTES: 03/02/19999 TAKING CLARITIN 10 MG TABLET 1 TABLET ORALLY ONCE A DAY, NOTES: 03/02/192099 TAKING MULTIVITAMIN 1 CAP ORALLY ONCE DAILY, NOTES: WEEKS AGO TAKING MIRALAX - PACKET 1 PACKET MIXED WITH 8 OUNCES OF FLUID ORALLY ONCE A DAY, NOTES: 03/02/19999 TAKING SUMATRIPTAN SUCCINATE 6 MG/0.5ML SOLUTION 0.5 ML NEEDED SUBCUTANEOUS NEEDED, NOTES: WEEKS AGO TAKING MECLIZINE HCL 25 MG TABLET 1 TABLET NEEDED ORALLY BID PRN NAUSEA, NOTES: 03/02/19999 TAKING ZOFRAN 8 MG TABLET 1 TABLET ORALLY TWICE A DAY PRN NAUSEA, NOTES: 03/02/192099 TAKING BACLOFEN 10 MG TABLET 1 TABLET WITH FOOD OR MILK ORALLY FOUR TIMES DAILY, NOTES: 03/02/192099 TAKING VALIUM 5 MG TABLET 1 TABLET NEEDED ORALLY Q 8-12 HOURSPRN SEVERE SPASM MDD=2, NOTES: 4 DAYS AGO TAKING OXYCODONE HCL 10 MG TABLET 1 TABLET ORALLY Q 8-12 HOURS PRN SEVERE PAIN MDD=2, NOTES: 03/02/192099 TAKING TRAMADOL HCL 50 MG TABLET 2 TAB ORALLY Q 4-6 HRS PRN PAIN MDD=6, NOTES: 5/20/19 2100 NOT-TAKING ONDANSETRON 8 MG TABLET DISPERSIBLE 1 TAB ORALLY TID PRN NAUSEA, NOTES: DUPLICATE NOT-TAKING ONDANSETRON HCL 8 MG TABLET 1 TABLET ORALLY Q 8 PRN NAUSEA, NOTES: DUPLICATE NOT-TAKING MAGNESIUM 1200 MG TABLET 1 TABLET ORALLY ONCE A DAY, NOTES: NONE LATELY MEDICATION LIST REVIEWED AND RECONCILED WITH THE PATIENT PAST MEDICAL HISTORY IBS FIBROMYALGIA PTSD ESOPHAGITIS HYPERLIPIDEMIA LOW BACK PAIN MIGRAINE HEADACHES CHRONIC PELVIC PAIN SLEEP APNEA SINUSITIS C DIFF NERVES IN EYES ARE SWOLLEN CHRONIC NECK PAIN ALLERGIES NORTRIPTYLINE HCL: HAIR LOSS - ALLERGY INDERAL: RASH, HIVES - ALLERGY CODEINE PHOSPHATE (FOR ALLERGIES USE ONLY): VOMITING/ NAILS - ALLERGY LYRICA: SHAKY, HAIR LOSS, ITCH - ALLERGY NEURONTIN: ANXIETY, ITCHING - ALLERGY TOPAMAX: HAIR LOSS - ALLERGY TRAZODONE HCL ER: HEADACHE - ALLERGY ZOCOR: BODY ACHE - SIDE EFFECTS MORPHINE SULFATE: VOMITING/ MIGRAINE - SIDE EFFECTS DEPAKOTE: HIVES - ALLERGY BOTOX: ITCHES / SWELLING - ALLERGY SURGICAL HISTORY TONSILLECTOMY, ADENOIDECTOMY, REPAIR OF DEVIATED SEPTUM, DRAINAGE OF SINUSES 2011 FUSION L2 L3 2009 LAP KENNETH 2008 HYSTERECTOMY (TOTAL WITH SALPINGO-OOPHORECTOMY) WITH BLADDER AND PELVIC REPAIR 2003 SEVERAL PELVIC SURGURIES POST FOR PELVIC FLOOR ISSUES (HAS CHRONIC BOWEL AND BLADDER ISSUES A RESIDUAL). C-5 THROUGH C7 FUSION 2017 CYST REMOVED IN RIGHT LABIA AREA 05-22-2017 FAMILY HISTORY STRONG FAMILY HISTORY OF AUTO IMMUNE DISEASES SUCH MULTIPLE SCLEROSIS, PSORIATIC ARTHRITIS, AND GOUT. SOCIAL HISTORY GENERAL: TOBACCO USE ARE YOU A:NEVER SMOKER PAIN CLINIC PFS, CLERGY, PUBLIC HEALTH REFERRALS PFS REFERRAL NEEDED?NO CLERGY REFERRAL NEEDED?NO PUBLIC HEALTH REFERRAL NEEDED?NO WAS THE PROVIDER NOTIFIED OF ANY PERTINENT INFO?YES HAS THE PATIENT BEEN EDUCATED REGARDING HIS/HER PLAN OF CARE?YES HAS THE PATIENT BEEN EDUCATED REGARDING PAIN, THE RISK FOR PAIN, THE IMPORTANCE OF EFFECTIVE PAIN MANAGEMENT, AND THE PAIN ASSESSMENT PROCESS?YES LATEX QUESTIONNAIRE LATEX ALLERGY : HAVE YOU EVER DEVELOPED ANY TYPE OF REACTION AFTER HANDLING LATEX PRODUCTS SUCH RUBBER GLOVES, CONDOMS, DIAPHRAGMS, BALLOONS, SOCKS, OR UNDERWEAR?NO LATEX ALLERGY : HAVE YOU EVER DEVELOPED ANY TYPE OF REACTION DURING OR AFTER DENTAL APPOINTMENT, VAGINAL/RECTAL EXAMINATION, SURGICAL PROCEDURE, OR ANY OTHER EXPOSURE?NO LATEX RISK : HAVE YOU EVER HAD ANY DIFFICULTY BREATHING OR HIVES AFTER EATING OR HANDLING ANY FRUITS, OR VEGETABLES; SUCH KIWI, BANANAS, STONE FRUITS, OR CHESTNUTSNO LATEX RISK : DO YOU HAVE A PREVIOUS PERSONAL HISTORY OF MORE THAN NINE SURGERIES, SPINA BIFIDA, OR REPEATED CATHERTIZATIONS? YES - PLEASE INDICATE : > 9 SURGERIES LATEX RISK : ARE YOU FREQUENTLY EXPOSED TO LATEX PRODUCTS IN YOUR OCCUPATION?NO DATE ASKED : 03/03/2019 CAFFEINE CAFFEINE USE?YES HOW OFTEN AND HOW MUCH? 1 CUP PER DAY ADVANCE DIRECTIVE ADVANCE DIRECTIVE DISCUSSED WITH PATIENT:YES HCP - ANGELICA JONES (MOTHER) YAZDANISM [id number] NONE LANGUAGE LANGUAGES SPOKEN:SURINAMESE MARITAL STATUS: . NEW PATIENT PAIN DIARY TODAY'S VISIT NOTES, FROM 0-10, WHAT LEVEL IS YOUR PAIN TODAY? 0. RECREATIONAL DRUG USE DRUG USE?NO OCCUPATION: UNEMPLOYED. LEARNING BARRIERS / SPECIAL NEEDS BARRIERS TO LEARNING?NO HEARING IMPAIRED?NO VISION IMPAIRED?NO COGNITIVELY IMPAIRED?NO READINESS TO LEARN?YES LEARNING PREFERENCES?NO LEARNING CAPABILITIES PRESENT?YES EMOTIONAL BARRIERS?NO SPECIAL DEVICES?NO RESIDENT ATHLETIC TRAINER NEEDED?NO REVIEWED WITH PT 06/10/18 1515 LASREVIEWED WITH PATIENT 12/24/18 1023 JSREVIEWED WITH PATIENT 03/03/19 0906 JS. HOSPITALIZATION/MAJOR DIAGNOSTIC PROCEDURE SEE ABOVE REVIEW OF SYSTEMS REVIEWED BY: PROVIDER: . CONSTITUTIONAL: ANY CHANGE IN YOUR MEDICAL CONDITION? NO . CHILLS NO . FEVER NO . INFECTION: DO YOU HAVE NEW INFECTIONS? NO . DO YOU HAVE HISTORY OF MRSA? NO . MUSCULOSKELETAL: ANY NEW PATTERNS OF PAIN OR NUMBNESS? NO . GASTROENTEROLOGY: ANY NEW CHANGE IN BOWEL CONTROL? NO . GENITOURINARY: ANY NEW CHANGE IN BLADDER CONTROL? NO . IS THERE A CHANCE YOU COULD BE ? NO . HEMATOLOGY/LYMPH: DO YOU TAKE ANY BLOOD THINNERS? (FOR EXAMPLE- COUMADIN, PLAVIX, AGGRENOX, PLATEL, PRADAXA, OR XARELTO) NO . WHEN WAS YOUR LAST DOSE? DATE: TIME: . NEUROLOGY: HAVE YOU FALLEN IN THE PAST 12 MONTHS? YES, STATES FALL ABOUT A WEEK AGO DUE TO DIZZINESS AND PASSING OUT. STATES SHE HIT HER HEAD AND HURT HER NECK. WENT TO ED THE NEXT DAY, STATES CT OF NECK PERFORMED AND STATES SHE DID HAVE A CONCUSSION . ANY NEW EXTREMITY NUMBNESS OR WEAKNESS? NO . CARDIOLOGY: DO YOU HAVE A PACEMAKER OR DEFIBRILLATOR? NO . RESPIRATORY: HAVE YOU BEEN SICK IN THE PAST WEEK? NO . FEVER NO . FLU LIKE SYMPTOMS? NO . COUGH NO . INTEGUMENTARY: DO YOU HAVE ANY RASHES OR OPEN SORES? NO . ALLERGIC/IMMUNO: ARE YOU ALLERGIC TO IV DYE? NO . ANY NEW ALLERGIES? NO . PSYCHIATRIC: DO YOU HAVE THOUGHTS OF HURTING YOURSELF OR SOMEONE ELSE? NO . ARE YOU ABUSED, NEGLECTED, OR IN AN UNSAFE ENVIRONMENT? NO . ENDOCRINOLOGY: ARE YOU DIABETIC? NO . OTHER: DO YOU NEED ANY PRESCRIPTIONS? NO . IF YES, PLEASE LIST: ____ . ANY NEW PROBLEMS WITH YOUR MEDICATIONS? NO . WHEN DID YOU LAST EAT? ____03/02/19 1800 . WHEN DID YOU LAST DRINK? ____03/02/19 1130 . WHAT DID YOU LAST DRINK? ____WATER . NAME OF PERSON DRIVING YOU HOME? ____SHAAN SIDDIQUI . DO YOU HAVE ANY OTHER QUESTIONS OR CONCERNS NO . VITAL SIGNS WT 139.2 LBS, HT 67 IN, BMI 21.80 INDEX, BP 106/61 MM HG, HR 63 /MIN, RR 16 /MIN, TEMP 97.2 F, OXYGEN SAT % 98%, SAFE IN ENV? (Y/N) YES, NA INITIALS WA 09:06, REVIEWED BY: ANEL. ASSESSMENTS SPONDYLOSIS OF LUMBAR REGION WITHOUT MYELOPATHY OR RADICULOPATHY - M47.816 (PRIMARY) SPONDYLOSIS WITHOUT MYELOPATHY OR RADICULOPATHY, LUMBOSACRAL REGION - M47.817 TREATMENT SPONDYLOSIS WITHOUT MYELOPATHY OR RADICULOPATHY, LUMBOSACRAL REGION SMC FACET BLOCK (PAIN)[id number] PROCEDURES PN LUMBAR FACET BLOCK DIAGNOSTIC PRE PROCEDURE DIAGNOSIS LUMBAR SPONDYLOSIS, LUMBOSACRAL SPONDYLOSIS POST PROCEDURE DIAGNOSIS LUMBAR SPONDYLOSIS, LUMBOSACRAL SPONDYLOSIS PROCEDURE BILATERAL L3-L4, BILATERAL L4-L5, AND BILATERAL L5-S1 FACET BLOCK DIAGNOSTIC NUMBER [address] LATRELL ROSENTHAL PATROL SERGEANT NONE ANESTHESIA LOCAL PRE PROCEDURE NOTE THE PATIENT WITH HISTORY OF CHRONIC LOW BACK PAIN. I EVALUATED THE PATIENT AND REVIEWED THE CHART. I WENT OVER THE RISKS, ALTERNATIVES, AND BENEFITS ASSOCIATED WITH THIS PROCEDURE. THE PATIENT WOULD LIKE TO PROCEED AND GAVE CONSENT TO PERFORM THE PROCEDURE. AGREED WITH THE PATIENT WE ARE DOING THIS PROCEDURE TO DETERMINE IF THE PATIENT IS A CANDIDATE FOR A RADIOFREQUENCY ABLATION OF THE FACETS JOINTS. THE PATIENT DENIES UNEXPLAINABLE WEIGHT LOSS, FEVER, CHILLS, OR NEW CHANGES IN URINARY OR BOWEL CONTROL DESCRIPTION OF PROCEDURE THE PATIENT WAS BROUGHT TO THE PROCEDURE ROOM AND PLACED IN THE PRONE POSITION. THE LUMBOSACRAL AREA WAS CLEANED WITH CHLORAPREP SOLUTION AND DRAPED ASEPTICALLY. THE PROCEDURE WAS DONE UNDER STERILE CONDITIONS. I CHECKED LATERALITY AND THE LEVEL WHERE THE PROCEDURE WAS GOING TO BE PERFORMED WITH THE PATIENT AND THE SUPPORTING STAFF AT THE MOMENT OF THE TIME OUT IN THE PROCEDURE ROOM. UNDER FLUOROSCOPIC GUIDANCE, TARGETS WERE SELECTED AT THE INTERSECTION OF THE RIGHT AND LEFT TRANSVERSE PROCESS OF L3, L4, L5 AND ALA OF S1 WITH ITS RESPECTIVE SUPERIOR ARTICULAR PROCESS. LIDOCAINE WAS USED TO NUMB THE SKIN AND THE SUBCUTANEOUS TISSUE BELOW IT. SPINAL NEEDLE, 22-GAUGE WAS ADVANCED UNDER FLUOROSCOPIC GUIDANCE AND FOLLOWING PATIENT FEEDBACK UNTIL THE TARGETS WERE REACHED. POSITION OF THE NEEDLES WAS VERIFIED WITH AP AND LATERAL VIEWS. AFTER PROPER POSITION OF THE NEEDLES WAS ACHIEVED, ISOVUE-M DYE 30% 0.1 ML WAS INJECTED AT EACH SITE SHOWING ADEQUATE SPREAD OF THE DYE. THEN A SOLUTION OF 0.4 ML OF BUPIVACAINE 0.25% WAS INJECTED AT EACH SITE. THERE WAS NO EVIDENCE OF BLOOD, PARESTHESIA OR CEREBROSPINAL FLUID DURING THE PROCEDURE. THE PATIENT WAS SENT TO THE RECOVERY ROOM. THE PATIENT WAS MOVING THE EXTREMITIES AND DOING WELL. THERE WAS NO COMPLICATION DURING THE PROCEDURE. FLUOROSCOPY TIME WAS 40 SECONDS POST PROCEDURE NOTE THE PATIENT WILL DOCUMENT HIS PAIN LEVEL AND RESPONSE TO THIS PROCEDURE EVERY 30 MINUTES. THE PATIENT WILL BE SEEN IN A FOLLOW UP IN THE NEXT FEW WEEKS. FURTHER DETERMINATION FOR HIS CASE WILL BE DONE AT THE NEXT VISIT. INSTRUCTIONS WERE GIVEN, QUESTIONS WERE ANSWERED, AND THE PATIENT EXPRESSED UNDERSTANDING AND AGREED WITH THE PLAN. I, RAVEN KAMARA, DOCUMENTED THE ABOVE INFORMATION ACTING A SCRIBE FOR DR. ROSENTHAL. I HAVE REVIEWED THE ABOVE DOCUMENT, WRITTEN BY RAVEN HORNERIBUsman AND I VERIFY THAT IT IS ACCURATE. PROCEDURE CODES 6045F RADXPS IN END [id number] PXD [id number] INJ PARAVERT F JNT L/S 1 LEV, MODIFIERS: 50 [id number] INJ PARAVERT F JNT L/S 2 LEV, MODIFIERS: 50 [id number] INJ PARAVERT F JNT L/S 3 LEV, MODIFIERS: 50 DISPOSITION & COMMUNICATION FOLLOW UP 3 WEEKS ELECTRONICALLY SIGNED BY LATRELL ROSENTHAL MD, MD ON 03/11/2019 AT 04:28 PM EDT DISCLAIMER : THIS IS A VISIT SUMMARY EXTRACTED FROM THE [employer] CHART. IT IS NOT A COPY OF THE [employer] PROGRESS NOTE. OLIVIERD
== END ==
LOC: M PAIN 08:45
PROVIDERS: ATTEND Anesthesiology
DX: G89.29 Other chronic pain (principal); M47.816 Spondylosis without myelopathy or radiculopathy, lumbar region; M47.817 Spondylosis without myelopathy or radiculopathy, lumbosacral region; M79.7 Fibromyalgia; F43.10 Post-traumatic stress disorder, unspecified; E78.5 Hyperlipidemia, unspecified; G43.909 Migraine, unspecified, not intractable, without status migrainosus; G47.30 Sleep apnea, unspecified; Z79.891 Long term (current) use of opiate analgesic; Z79.899 Other long term (current) drug therapy; Z88.5 Allergy status to narcotic agent; Z88.8 Allergy status to other drugs, medicaments and biological substances; Z86.19 Personal history of other infectious and parasitic diseases
CPT/HCPCS: 64493; 64494; 64495; Q9967

== ENCOUNTER → 2019-04-07 | Outpatient (CLI) | payer OTHER ==
[~2019-04-07] MED LIST changes: -BUPIVACAINE HCL 0.25% 30 ML VIAL As Ordered ONE; -ISOVUE-M 300 61% 15ML VIAL (Q9967) As Ordered ONE; -LIDOCAINE 1% SDV INJ 30 ML VIAL As Ordered ONE
--- NOTE | 2019-04-22 02:09 | ECWPNPC ---
PATIENT NAME: NOE SIDDIQUI : 1970 GENDER: FEMALE VISIT DATE: 04/07/2019 DISCHARGE DATE: 04/07/19 1434 VISIT LOCKED DATE TIME: PHYSICIAN: ABIMAEL FENG RESOURCE: ABIMAEL FENG REASON FOR APPOINTMENT 1. POST FACET HISTORY OF PRESENT ILLNESS HISTORY OF PRESENT ILLNESS: HERE FOR POST PROCEDURE F/U.HAD ATTEMPT AT BILAT. LUMBAR FACET DIAGNOSTIC BLOCK.PATIENT IS HAVING INCREASE IN LOW BACK PAIN SINCE PROCEDURE.DR ROSENTHAL IS NOT ABLE TO DO RF DUE TO HER ANATOMY.HE DID RECOMMED DCS BUT PATIENT IS VERY LEARY SHE HAS HAD MULTIPLE COMPLICATIONS POST OPERATIVELY.RATING PAIN VAS 7/10. PAIN THE PATIENT DESCRIBES THE PAIN... FALL RISK SCREENING: SCREENING :NO FALLS REPORTED IN THE LAST YEAR CURRENT MEDICATIONS TAKING IMITREX 100 MG TABLET ORALLY NEEDED TAKING SINGULAIR 10 MG TABLET 1 TABLET IN THE EVENING ORALLY ONCE A DAY TAKING DETROL LA 4 MG CAPSULE EXTENDED RELEASE 24 HOUR 1 CAPSULE ORALLY ONCE A DAY TAKING VIVELLE-DOT 0.1 MG/24HR PATCH TWICE WEEKLY 1 PATCH TO SKIN TRANSDERMAL TWO TIMES A WEEK TAKING DYMISTA 137-50 MCG/ACT SUSPENSION 1 PUFF IN EACH NOSTRIL NASALLY TWICE A DAY TAKING CLARITIN 10 MG TABLET 1 TABLET ORALLY ONCE A DAY TAKING MULTIVITAMIN 1 CAP ORALLY ONCE DAILY TAKING MIRALAX - PACKET 1 PACKET MIXED WITH 8 OUNCES OF FLUID ORALLY ONCE A DAY TAKING SUMATRIPTAN SUCCINATE 6 MG/0.5ML SOLUTION 0.5 ML NEEDED SUBCUTANEOUS NEEDED TAKING MECLIZINE HCL 25 MG TABLET 1 TABLET NEEDED ORALLY BID PRN NAUSEA TAKING ZOFRAN 8 MG TABLET 1 TABLET ORALLY TWICE A DAY PRN NAUSEA TAKING BACLOFEN 10 MG TABLET 1 TABLET WITH FOOD OR MILK ORALLY FOUR TIMES DAILY TAKING VALIUM 5 MG TABLET 1 TABLET NEEDED ORALLY Q 8-12 HOURSPRN SEVERE SPASM MDD=2 TAKING OXYCODONE HCL 10 MG TABLET 1 TABLET ORALLY Q 8-12 HOURS PRN SEVERE PAIN MDD=2 TAKING TRAMADOL HCL 50 MG TABLET 2 TAB ORALLY Q 4-6 HRS PRN PAIN MDD=6 NOT-TAKING CARISOPRODOL 350 MG TABLET 1 TABLET NEEDED ORALLY FOR SPASMS AND PAIN EVERY 8 HOURS NEEDED MDD3 NOT-TAKING ONDANSETRON 8 MG TABLET DISPERSIBLE 1 TAB ORALLY TID PRN NAUSEA, NOTES: DUPLICATE NOT-TAKING ONDANSETRON HCL 8 MG TABLET 1 TABLET ORALLY Q 8 PRN NAUSEA, NOTES: DUPLICATE NOT-TAKING MAGNESIUM 1200 MG TABLET 1 TABLET ORALLY ONCE A DAY, NOTES: NONE LATELY MEDICATION LIST REVIEWED AND RECONCILED WITH THE PATIENT PAST MEDICAL HISTORY IBS FIBROMYALGIA PTSD ESOPHAGITIS HYPERLIPIDEMIA LOW BACK PAIN MIGRAINE HEADACHES CHRONIC PELVIC PAIN SLEEP APNEA SINUSITIS C DIFF NERVES IN EYES ARE SWOLLEN CHRONIC NECK PAIN ALLERGIES NORTRIPTYLINE HCL: HAIR LOSS - ALLERGY INDERAL: RASH, HIVES - ALLERGY CODEINE PHOSPHATE (FOR ALLERGIES USE ONLY): VOMITING/ NAILS - ALLERGY LYRICA: SHAKY, HAIR LOSS, ITCH - ALLERGY NEURONTIN: ANXIETY, ITCHING - ALLERGY TOPAMAX: HAIR LOSS - ALLERGY TRAZODONE HCL ER: HEADACHE - ALLERGY ZOCOR: BODY ACHE - SIDE EFFECTS MORPHINE SULFATE: VOMITING/ MIGRAINE - SIDE EFFECTS DEPAKOTE: HIVES - ALLERGY BOTOX: ITCHES / SWELLING - ALLERGY CARISOPRODOL: ANXIETY/OFF FEELING - SIDE EFFECTS SURGICAL HISTORY TONSILLECTOMY, ADENOIDECTOMY, REPAIR OF DEVIATED SEPTUM, DRAINAGE OF SINUSES 2011 FUSION L2 L3 2009 LAP KENNETH 2008 HYSTERECTOMY (TOTAL WITH SALPINGO-OOPHORECTOMY) WITH BLADDER AND PELVIC REPAIR 2003 SEVERAL PELVIC SURGURIES POST FOR PELVIC FLOOR ISSUES (HAS CHRONIC BOWEL AND BLADDER ISSUES A RESIDUAL). C-5 THROUGH C7 FUSION 2017 CYST REMOVED IN RIGHT LABIA AREA 05-22-2017 FAMILY HISTORY STRONG FAMILY HISTORY OF AUTO IMMUNE DISEASES SUCH MULTIPLE SCLEROSIS, PSORIATIC ARTHRITIS, AND GOUT. SOCIAL HISTORY GENERAL: TOBACCO USE ARE YOU A:NEVER SMOKER PAIN CLINIC PFS, CLERGY, PUBLIC HEALTH REFERRALS PFS REFERRAL NEEDED?NO CLERGY REFERRAL NEEDED?NO PUBLIC HEALTH REFERRAL NEEDED?NO WAS THE PROVIDER NOTIFIED OF ANY PERTINENT INFO?YES HAS THE PATIENT BEEN EDUCATED REGARDING HIS/HER PLAN OF CARE?YES HAS THE PATIENT BEEN EDUCATED REGARDING PAIN, THE RISK FOR PAIN, THE IMPORTANCE OF EFFECTIVE PAIN MANAGEMENT, AND THE PAIN ASSESSMENT PROCESS?YES LATEX QUESTIONNAIRE LATEX ALLERGY : HAVE YOU EVER DEVELOPED ANY TYPE OF REACTION AFTER HANDLING LATEX PRODUCTS SUCH RUBBER GLOVES, CONDOMS, DIAPHRAGMS, BALLOONS, SOCKS, OR UNDERWEAR?NO LATEX ALLERGY : HAVE YOU EVER DEVELOPED ANY TYPE OF REACTION DURING OR AFTER DENTAL APPOINTMENT, VAGINAL/RECTAL EXAMINATION, SURGICAL PROCEDURE, OR ANY OTHER EXPOSURE?NO LATEX RISK : HAVE YOU EVER HAD ANY DIFFICULTY BREATHING OR HIVES AFTER EATING OR HANDLING ANY FRUITS, OR VEGETABLES; SUCH KIWI, BANANAS, STONE FRUITS, OR CHESTNUTSNO LATEX RISK : DO YOU HAVE A PREVIOUS PERSONAL HISTORY OF MORE THAN NINE SURGERIES, SPINA BIFIDA, OR REPEATED CATHERTIZATIONS? YES - PLEASE INDICATE : > 9 SURGERIES LATEX RISK : ARE YOU FREQUENTLY EXPOSED TO LATEX PRODUCTS IN YOUR OCCUPATION?NO DATE ASKED : 03/03/2019 CAFFEINE CAFFEINE USE?YES HOW OFTEN AND HOW MUCH? 1 CUP PER DAY ADVANCE DIRECTIVE ADVANCE DIRECTIVE DISCUSSED WITH PATIENT:YES HCP - ANGELICA JONES (MOTHER) YARSANI [id number] NONE LANGUAGE LANGUAGES SPOKEN:KOREAN MARITAL STATUS: . NEW PATIENT PAIN DIARY FROM 0-10, WHAT LEVEL IS YOUR PAIN TODAY?7 RECREATIONAL DRUG USE DRUG USE?NO OCCUPATION: UNEMPLOYED. LEARNING BARRIERS / SPECIAL NEEDS BARRIERS TO LEARNING?NO HEARING IMPAIRED?NO VISION IMPAIRED?NO COGNITIVELY IMPAIRED?NO READINESS TO LEARN?YES LEARNING PREFERENCES?NO LEARNING CAPABILITIES PRESENT?YES EMOTIONAL BARRIERS?NO SPECIAL DEVICES?NO ENTREPRENEURSHIP PROGRAM DIRECTOR NEEDED?NO REVIEWED WITH PT 06/10/18 1515 LASREVIEWED WITH PATIENT 12/24/18 1023 JSREVIEWED WITH PATIENT 03/03/19 0906 JSREVIEWED WITH PT 04/07/19 1338 BV. HOSPITALIZATION/MAJOR DIAGNOSTIC PROCEDURE SEE ABOVE REVIEW OF SYSTEMS REVIEWED BY: PROVIDER: ABIMAEL GAONA . CONSTITUTIONAL: ANY CHANGE IN YOUR MEDICAL CONDITION? NO . CHILLS NO . FEVER NO . INFECTION: DO YOU HAVE NEW INFECTIONS? NO . DO YOU HAVE HISTORY OF MRSA? NO . MUSCULOSKELETAL: ANY NEW PATTERNS OF PAIN OR NUMBNESS? NO . GASTROENTEROLOGY: ANY NEW CHANGE IN BOWEL CONTROL? NO . GENITOURINARY: ANY NEW CHANGE IN BLADDER CONTROL? NO . IS THERE A CHANCE YOU COULD BE ? NO . HEMATOLOGY/LYMPH: DO YOU TAKE ANY BLOOD THINNERS? (FOR EXAMPLE- COUMADIN, PLAVIX, AGGRENOX, PLATEL, PRADAXA, OR XARELTO) NO . WHEN WAS YOUR LAST DOSE? DATE: TIME: . NEUROLOGY: HAVE YOU FALLEN IN THE PAST 12 MONTHS? YES, PT HAD A FALL EARLY March,. FELL BACK AND HIT HER HEAD, STATES SHE LOST CONSCIOUSNESS. WAS TREATED IN ED. . ANY NEW EXTREMITY NUMBNESS OR WEAKNESS? NO . CARDIOLOGY: DO YOU HAVE A PACEMAKER OR DEFIBRILLATOR? NO . RESPIRATORY: HAVE YOU BEEN SICK IN THE PAST WEEK? NO . FEVER NO . FLU LIKE SYMPTOMS? NO . COUGH NO . INTEGUMENTARY: DO YOU HAVE ANY RASHES OR OPEN SORES? NO . ALLERGIC/IMMUNO: ARE YOU ALLERGIC TO IV DYE? NO . ANY NEW ALLERGIES? NO . PSYCHIATRIC: DO YOU HAVE THOUGHTS OF HURTING YOURSELF OR SOMEONE ELSE? NO . ARE YOU ABUSED, NEGLECTED, OR IN AN UNSAFE ENVIRONMENT? NO . ENDOCRINOLOGY: ARE YOU DIABETIC? NO . OTHER: DO YOU NEED ANY PRESCRIPTIONS? NO . IF YES, PLEASE LIST: ____ . ANY NEW PROBLEMS WITH YOUR MEDICATIONS? NO . WHEN DID YOU LAST EAT? ____ . WHEN DID YOU LAST DRINK? ____ . WHAT DID YOU LAST DRINK? ____ . NAME OF PERSON DRIVING YOU HOME? ____ . DO YOU HAVE ANY OTHER QUESTIONS OR CONCERNS NO . VITAL SIGNS WT 137 LBS, HT 67 IN, BMI 21.45 INDEX, BP 116/69 MM HG, HR 96 /MIN, RR 16 /MIN, TEMP 98.0 F, OXYGEN SAT % 94%, NA INITIALS SC 13:29, REVIEWED BY: BV. EXAMINATION GENERAL EXAMINATION: GENERALNO ACUTE DISTRESS, WELL NOURISHED AND HYDRATED. PSYCHAPPROPRIATE MOOD AND AFFECT . LUNGS:CLEAR TO AUSCULTATION BILATERALLY, NO WHEEZES, RHONCHI, RALES. HEART:NO MURMURS, REGULAR RATE AND RHYTHM. BACK:NO CVA TENDERNESS.+TTP TO BILATERAL PARASPINAL MUSCLES.LIMITED ROM STRENGTH IN LE 3/5. REFLEXWS 2+. ASSESSMENTS SPONDYLOSIS WITHOUT MYELOPATHY OR RADICULOPATHY, LUMBOSACRAL REGION - M47.817 (PRIMARY) TREATMENT SPONDYLOSIS WITHOUT MYELOPATHY OR RADICULOPATHY, LUMBOSACRAL REGION REFILL OXYCODONE HCL TABLET, 10 MG, 1 TABLET, ORALLY, Q 8-12 HOURS PRN SEVERE PAIN MDD=2, 30 DAYS, 60, REFILLS 0 REFILL VALIUM TABLET, 5 MG, 1 TABLET NEEDED, ORALLY, Q 8-12 HOURSPRN SEVERE SPASM MDD=2, 30 DAYS, 30, REFILLS 0 REFILL TRAMADOL HCL TABLET, 50 MG, 2 TAB, ORALLY, Q 4-6 HRS PRN PAIN MDD=6, 30 DAYS, 120, REFILLS 0 NOTES: ISTOP REGISTRY REVIEWED AND DEMONSTRATES COMPLLIANCE. BRINGS IN MEDICATIONS WHICH IS APPROPRIATE FOR WHAT WAS DISPENSED. NO ILLICIT SUBSTANCES AND PRESCRIBED MEDICATIONS WERE PRESENT., RISKS AND BENEFITS OF NARCOTIC/OPIOD MEDICATIONS WERE REVIEWED WITH PATIENT - THIS INCLUDES BUT IS NOT LIMITED TO RISK OF DEPENDANCE/DEVELOPMENT OF ADDICTION, MOOD DISTURBANCE AND DEPRESSION, OSTEOPOROSIS, HORMONAL AND LABIDAL CHANGES, RESPIRATORY DEPRESSION AND . PATIENT IS ADVISED NOT TO DRIVE OR DRINK ALCOHOL WHILE ON THESE MEDICATIONS. CLINICAL NOTES: DCS INFO GIVEN. PROCEDURE CODES FA211 ESTABILISHED PATIENT [facility] CHARGE DISPOSITION & COMMUNICATION FOLLOW UP 3 MONTHS ELECTRONICALLY SIGNED BY CANDELARIA RALPH ON 04/21/2019 AT 02:07 PM EDT DISCLAIMER : THIS IS A VISIT SUMMARY EXTRACTED FROM THE [employer] CHART. IT IS NOT A COPY OF THE [employer] PROGRESS NOTE. MELANY
== END ==
LOC: M PAIN 13:15
PROVIDERS: ATTEND Nurse Practitioner Family
DX: M47.817 Spondylosis without myelopathy or radiculopathy, lumbosacral region (principal); K58.9 Irritable bowel syndrome, unspecified; F43.10 Post-traumatic stress disorder, unspecified; E78.5 Hyperlipidemia, unspecified; K20.9 Esophagitis, unspecified; M54.5 Low back pain; G43.909 Migraine, unspecified, not intractable, without status migrainosus; G47.30 Sleep apnea, unspecified; M54.2 Cervicalgia; Z79.891 Long term (current) use of opiate analgesic; Z79.899 Other long term (current) drug therapy; Z98.1 Arthrodesis status; Z90.710 Acquired absence of both cervix and uterus; Z90.722 Acquired absence of ovaries, bilateral; Z88.5 Allergy status to narcotic agent; Z88.8 Allergy status to other drugs, medicaments and biological substances

== ENCOUNTER → 2019-07-08 | Outpatient (CLI) | payer OTHER ==
--- NOTE | 2019-07-10 01:18 | ECWPNPC ---
PATIENT NAME: NOE SIDDIQUI : 1970 GENDER: FEMALE VISIT DATE: 07/08/2019 DISCHARGE DATE: 07/08/19 1415 VISIT LOCKED DATE TIME: PHYSICIAN: SHAHID DAMON RESOURCE: SHAHID DAMON REASON FOR APPOINTMENT 1. NECK HISTORY OF PRESENT ILLNESS HISTORY OF PRESENT ILLNESS: PAIN THE PATIENT DESCRIBES THE PAIN... 48-YEAR-OLD FEMALE IN FOR CHRONIC PAIN FOLLOW-UP. SHE RATES HER PAIN AN 8 OUT OF 10. AND DESCRIBES IT ACHING, BURNING, SORE, TENDER, SHARP, STABBING, SHOOTING AND STATES CONTINUOUS. FALL RISK SCREENING: SCREENING :NO FALLS REPORTED IN THE LAST YEAR CURRENT MEDICATIONS TAKING IMITREX 100 MG TABLET ORALLY NEEDED TAKING SINGULAIR 10 MG TABLET 1 TABLET IN THE EVENING ORALLY ONCE A DAY TAKING DETROL LA 4 MG CAPSULE EXTENDED RELEASE 24 HOUR 1 CAPSULE ORALLY ONCE A DAY TAKING VIVELLE-DOT 0.1 MG/24HR PATCH TWICE WEEKLY 1 PATCH TO SKIN TRANSDERMAL TWO TIMES A WEEK TAKING DYMISTA 137-50 MCG/ACT SUSPENSION 1 PUFF IN EACH NOSTRIL NASALLY TWICE A DAY TAKING CLARITIN 10 MG TABLET 1 TABLET ORALLY ONCE A DAY TAKING MULTIVITAMIN 1 CAP ORALLY ONCE DAILY TAKING MIRALAX - PACKET 1 PACKET MIXED WITH 8 OUNCES OF FLUID ORALLY ONCE A DAY TAKING SUMATRIPTAN SUCCINATE 6 MG/0.5ML SOLUTION 0.5 ML NEEDED SUBCUTANEOUS NEEDED TAKING MECLIZINE HCL 25 MG TABLET 1 TABLET NEEDED ORALLY BID PRN NAUSEA TAKING ZOFRAN 8 MG TABLET 1 TABLET ORALLY TWICE A DAY PRN NAUSEA TAKING BACLOFEN 10 MG TABLET 1 TABLET WITH FOOD OR MILK ORALLY FOUR TIMES DAILY TAKING OXYCODONE HCL 10 MG TABLET 1 TABLET ORALLY Q 8-12 HOURS PRN SEVERE PAIN MDD=2 TAKING VALIUM 5 MG TABLET 1 TABLET NEEDED ORALLY Q 8-12 HOURSPRN SEVERE SPASM MDD=2 TAKING TRAMADOL HCL 50 MG TABLET 2 TAB ORALLY Q 4-6 HRS PRN PAIN MDD=6 NOT-TAKING CARISOPRODOL 350 MG TABLET 1 TABLET NEEDED ORALLY FOR SPASMS AND PAIN EVERY 8 HOURS NEEDED MDD3 NOT-TAKING MAGNESIUM 1200 MG TABLET 1 TABLET ORALLY ONCE A DAY, NOTES: NONE LATELY DISCONTINUED ONDANSETRON 8 MG TABLET DISPERSIBLE 1 TAB ORALLY TID PRN NAUSEA, NOTES: DUPLICATE DISCONTINUED ONDANSETRON HCL 8 MG TABLET 1 TABLET ORALLY Q 8 PRN NAUSEA, NOTES: DUPLICATE MEDICATION LIST REVIEWED AND RECONCILED WITH THE PATIENT PAST MEDICAL HISTORY IBS FIBROMYALGIA PTSD ESOPHAGITIS HYPERLIPIDEMIA LOW BACK PAIN MIGRAINE HEADACHES CHRONIC PELVIC PAIN SLEEP APNEA SINUSITIS C DIFF NERVES IN EYES ARE SWOLLEN CHRONIC NECK PAIN ALLERGIES NORTRIPTYLINE HCL: HAIR LOSS - ALLERGY INDERAL: RASH, HIVES - ALLERGY CODEINE PHOSPHATE (FOR ALLERGIES USE ONLY): VOMITING/ NAILS - SIDE EFFECTS LYRICA: SHAKY, HAIR LOSS, ITCH - ALLERGY NEURONTIN: ANXIETY, ITCHING - ALLERGY TOPAMAX: HAIR LOSS - ALLERGY TRAZODONE HCL ER: HEADACHE - ALLERGY ZOCOR: BODY ACHE - SIDE EFFECTS MORPHINE SULFATE: VOMITING/ MIGRAINE - SIDE EFFECTS DEPAKOTE: HIVES - ALLERGY BOTOX: ITCHES / SWELLING - ALLERGY CARISOPRODOL: ANXIETY/OFF FEELING - SIDE EFFECTS SURGICAL HISTORY TONSILLECTOMY, ADENOIDECTOMY, REPAIR OF DEVIATED SEPTUM, DRAINAGE OF SINUSES 2011 FUSION L2 L3 2009 LAP KENNETH 2007 HYSTERECTOMY (TOTAL WITH SALPINGO-OOPHORECTOMY) WITH BLADDER AND PELVIC REPAIR 2003 SEVERAL PELVIC SURGURIES POST FOR PELVIC FLOOR ISSUES (HAS CHRONIC BOWEL AND BLADDER ISSUES A RESIDUAL). C-5 THROUGH C7 FUSION 2017 CYST REMOVED IN RIGHT LABIA AREA 05-22-2017 FAMILY HISTORY STRONG FAMILY HISTORY OF AUTO IMMUNE DISEASES SUCH MULTIPLE SCLEROSIS, PSORIATIC ARTHRITIS, AND GOUT. SOCIAL HISTORY GENERAL: TOBACCO USE ARE YOU A:NEVER SMOKER LANGUAGE LANGUAGES SPOKEN:PORTUGUESE DOMESTIC VIOLENCE DO YOU FEEL SAFE IN YOUR ENVIRONMENT?YES RECREATIONAL DRUG USE DRUG USE?NO LEARNING BARRIERS / SPECIAL NEEDS BARRIERS TO LEARNING?NO HEARING IMPAIRED?NO VISION IMPAIRED?NO COGNITIVELY IMPAIRED?NO READINESS TO LEARN?YES LEARNING PREFERENCES?NO LEARNING CAPABILITIES PRESENT?YES EMOTIONAL BARRIERS?NO SPECIAL DEVICES?NO STEEL HANGER NEEDED?NO PAIN CLINIC PFS, CLERGY, PUBLIC HEALTH REFERRALS PFS REFERRAL NEEDED?NO CLERGY REFERRAL NEEDED?NO PUBLIC HEALTH REFERRAL NEEDED?NO WAS THE PROVIDER NOTIFIED OF ANY PERTINENT INFO? N/A HAS THE PATIENT BEEN EDUCATED REGARDING HIS/HER PLAN OF CARE?YES HAS THE PATIENT BEEN EDUCATED REGARDING PAIN, THE RISK FOR PAIN, THE IMPORTANCE OF EFFECTIVE PAIN MANAGEMENT, AND THE PAIN ASSESSMENT PROCESS?YES LATEX QUESTIONNAIRE LATEX ALLERGY : HAVE YOU EVER DEVELOPED ANY TYPE OF REACTION AFTER HANDLING LATEX PRODUCTS SUCH RUBBER GLOVES, CONDOMS, DIAPHRAGMS, BALLOONS, SOCKS, OR UNDERWEAR?NO LATEX ALLERGY : HAVE YOU EVER DEVELOPED ANY TYPE OF REACTION DURING OR AFTER DENTAL APPOINTMENT, VAGINAL/RECTAL EXAMINATION, SURGICAL PROCEDURE, OR ANY OTHER EXPOSURE?NO LATEX RISK : HAVE YOU EVER HAD ANY DIFFICULTY BREATHING OR HIVES AFTER EATING OR HANDLING ANY FRUITS, OR VEGETABLES; SUCH KIWI, BANANAS, STONE FRUITS, OR CHESTNUTSNO LATEX RISK : DO YOU HAVE A PREVIOUS PERSONAL HISTORY OF MORE THAN NINE SURGERIES, SPINA BIFIDA, OR REPEATED CATHERIZATIONS? YES - PLEASE INDICATE : > 9 SURGERIES LATEX RISK : ARE YOU FREQUENTLY EXPOSED TO LATEX PRODUCTS IN YOUR OCCUPATION?NO DATE ASKED : 07/08/2019 CAFFEINE CAFFEINE USE?YES HOW OFTEN AND HOW MUCH? 1 CUP PER DAY ADVANCE DIRECTIVE ADVANCE DIRECTIVE DISCUSSED WITH PATIENT:YES HCP - ANGELICA JONES (MOTHER) [employer] [id number] NONE MARITAL STATUS: . ALCOHOL SCREENING DID YOU HAVE A DRINK CONTAINING ALCOHOL IN THE PAST YEAR?NO POINTS0 INTERPRETATIONNEGATIVE OCCUPATION: UNEMPLOYED. REVIEWED WITH PT 06/10/18 1515 LASREVIEWED WITH PATIENT 12/24/18 1023 JSREVIEWED WITH PATIENT 03/03/19 0906 JSREVIEWED WITH PT 04/07/19 1338 BV07/08/19 1323 REVIWED WITH PT. AD. HOSPITALIZATION/MAJOR DIAGNOSTIC PROCEDURE SEE ABOVE REVIEW OF SYSTEMS REVIEWED BY: PROVIDER: MARY GAONA-C . CONSTITUTIONAL: ANY CHANGE IN YOUR MEDICAL CONDITION? NO . CHILLS NO . FEVER NO . INFECTION: DO YOU HAVE NEW INFECTIONS? NO . DO YOU HAVE HISTORY OF MRSA? NO . MUSCULOSKELETAL: ANY NEW PATTERNS OF PAIN OR NUMBNESS? YES,HER NECK AND LOW BACK HAVE BEEN BOTHERING HER MORE(C2-3, L1-2 AREAS)THIS HAS BEEN SINCE THE FALL IN FEBRUARY. . GASTROENTEROLOGY: ANY NEW CHANGE IN BOWEL CONTROL? NO . GENITOURINARY: ANY NEW CHANGE IN BLADDER CONTROL? NO . IS THERE A CHANCE YOU COULD BE ? NO . HEMATOLOGY/LYMPH: DO YOU TAKE ANY BLOOD THINNERS? (FOR EXAMPLE- COUMADIN, PLAVIX, AGGRENOX, PLATEL, PRADAXA, OR XARELTO) NO . WHEN WAS YOUR LAST DOSE? DATE: TIME: . NEUROLOGY: HAVE YOU FALLEN IN THE PAST 12 MONTHS? YES,IN FEBRUARY SHE PASSED OUT AND HIT HER HEAD. EVALUATED IN ED-HAD CONCUSSION . ANY NEW EXTREMITY NUMBNESS OR WEAKNESS? NO . CARDIOLOGY: DO YOU HAVE A PACEMAKER OR DEFIBRILLATOR? NO . RESPIRATORY: HAVE YOU BEEN SICK IN THE PAST WEEK? NO . FEVER NO . FLU LIKE SYMPTOMS? NO . COUGH NO . INTEGUMENTARY: DO YOU HAVE ANY RASHES OR OPEN SORES? NO . ALLERGIC/IMMUNO: ARE YOU ALLERGIC TO IV DYE? NO . ANY NEW ALLERGIES? NO . PSYCHIATRIC: DO YOU HAVE THOUGHTS OF HURTING YOURSELF OR SOMEONE ELSE? NO . ARE YOU ABUSED, NEGLECTED, OR IN AN UNSAFE ENVIRONMENT? NO . ENDOCRINOLOGY: ARE YOU DIABETIC? NO . OTHER: DO YOU NEED ANY PRESCRIPTIONS? YES . IF YES, PLEASE LIST: BACLOFEN . ANY NEW PROBLEMS WITH YOUR MEDICATIONS? NO . WHEN DID YOU LAST EAT? ____ . WHEN DID YOU LAST DRINK? ____ . WHAT DID YOU LAST DRINK? ____ . NAME OF PERSON DRIVING YOU HOME? ____ . DO YOU HAVE ANY OTHER QUESTIONS OR CONCERNS YES, INCREASE IN PAIN . VITAL SIGNS WT 136.4 LBS, HT 67 IN, BMI 21.36 INDEX, BP 106/64 MM HG, HR 84 /MIN, RR 16 /MIN, TEMP 98.4 F, OXYGEN SAT % 95%, NA INITIALS AW 1328. EXAMINATION GENERAL EXAMINATION: GENERALNO ACUTE DISTRESS, WELL NOURISHED AND HYDRATED. PSYCHAPPROPRIATE MOOD AND AFFECT . LUNGS:CLEAR TO AUSCULTATION BILATERALLY, NO WHEEZES, RHONCHI, RALES. HEART:NO MURMURS, REGULAR RATE AND RHYTHM. ASSESSMENTS SPONDYLOSIS WITHOUT MYELOPATHY OR RADICULOPATHY, LUMBAR REGION - M47.816 (PRIMARY) CERVICAL POST-LAMINECTOMY SYNDROME - M96.1 TREATMENT SPONDYLOSIS WITHOUT MYELOPATHY OR RADICULOPATHY, LUMBAR REGION INCREASE BACLOFEN TABLET, 20 MG, 1 TABLET WITH FOOD OR MILK, ORALLY, THREE TIMES A DAY, 30 DAYS, 90 CLINICAL NOTES: 48-YEAR-OLD FEMALE IN FOR CHRONIC PAIN FOLLOW-UP. GIVEN PRESENTING SYMPTOMS RECOMMENDED INCREASING BACLOFEN TO 20 MG 3 TIMES A DAY AND A CONSULT FOR A POTENTIAL DORSAL COLUMN SIMULATOR WITH FOLLOW-UP IN 3 MONTHS. PATIENT HAS EXPRESSED UNDERSTANDING OF AND WAS IN AGREEMENT WITH TREATMENT PLAN. GIVEN TIME TO ASK QUESTIONS AND EXPRESS CONCERNS., ISTOP REGISTRY REVIEWED AND DEMONSTRATES COMPLLIANCE. (REF # [id number] ) BRINGS IN MEDICATIONS WHICH IS APPROPRIATE FOR WHAT WAS DISPENSED. RECENT URINE TOXICOLOGY REVIEWED. NO UNAUTHORIZED MEDICATIONS. NO ILLICIT SUBSTANCES AND PRESCRIBED MEDICATIONS WERE PRESENT. PREVENTIVE MEDICINE PAIN CLINIC TEACHING: PROCEDURE TEACHING PAMPHLET GIVEN ON DCS AND PT FILLED INFORMATION CARD OUT TO GIVE TO REP.. PROCEDURE CODES FA211 ESTABILISHED PATIENT [facility] CHARGE DISPOSITION & COMMUNICATION FOLLOW UP 3 MONTHS (REASON: CHRONIC PAIN ) ELECTRONICALLY SIGNED BY CANDELARIA OSBORN ON 07/09/2019 AT 10:22 AM EDT DISCLAIMER : THIS IS A VISIT SUMMARY EXTRACTED FROM THE [employer] CHART. IT IS NOT A COPY OF THE [employer] PROGRESS NOTE. MELANY
== END ==
LOC: M PAIN 13:15
PROVIDERS: ATTEND Family Medicine
DX: M47.816 Spondylosis without myelopathy or radiculopathy, lumbar region (principal); M96.1 Postlaminectomy syndrome, not elsewhere classified; M79.7 Fibromyalgia; Z86.59 Personal history of other mental and behavioral disorders; E78.5 Hyperlipidemia, unspecified; G43.909 Migraine, unspecified, not intractable, without status migrainosus; G47.30 Sleep apnea, unspecified; Z86.19 Personal history of other infectious and parasitic diseases; Z88.5 Allergy status to narcotic agent; Z88.8 Allergy status to other drugs, medicaments and biological substances; Z79.891 Long term (current) use of opiate analgesic; Z79.899 Other long term (current) drug therapy

== ENCOUNTER → 2019-10-05 | Outpatient (CLI) | payer OTHER ==
--- NOTE | 2019-10-09 00:37 | ECWPNPC ---
PATIENT NAME: NOE SIDDIQUI : 1970 GENDER: FEMALE VISIT DATE: 10/05/2019 DISCHARGE DATE: 10/05/19 1033 VISIT LOCKED DATE TIME: PHYSICIAN: SHAHID DAMON RESOURCE: SHAHID DAMON REASON FOR APPOINTMENT 1. NECK HISTORY OF PRESENT ILLNESS HISTORY OF PRESENT ILLNESS: PAIN THE PATIENT DESCRIBES THE PAIN... 48-YEAR-OLD FEMALE IN FOR CHRONIC PAIN FOLLOW-UP. SHE RATES HER PAIN CURRENTLY 6 OUT OF 10 AND DESCRIBES IT ACHING, SHARP, BURNING, STABBING, SORE, SHOOTING, CONTINUOUS, AND WAKES HER FROM HER SLEEP. SHE HAS REQUESTED AN INCREASE IN HER BACLOFEN SHE FEELS IT IS NOT COVERING HER THROUGHOUT THE DAY. FALL RISK SCREENING: SCREENING :NO FALLS REPORTED IN THE LAST YEAR CURRENT MEDICATIONS TAKING IMITREX 100 MG TABLET ORALLY NEEDED TAKING SINGULAIR 10 MG TABLET 1 TABLET IN THE EVENING ORALLY ONCE A DAY TAKING DETROL LA 4 MG CAPSULE EXTENDED RELEASE 24 HOUR 1 CAPSULE ORALLY ONCE A DAY TAKING VIVELLE-DOT 0.1 MG/24HR PATCH TWICE WEEKLY 1 PATCH TO SKIN TRANSDERMAL TWO TIMES A WEEK TAKING DYMISTA 137-50 MCG/ACT SUSPENSION 1 PUFF IN EACH NOSTRIL NASALLY TWICE A DAY TAKING CLARITIN 10 MG TABLET 1 TABLET ORALLY ONCE A DAY TAKING MULTIVITAMIN 1 CAP ORALLY ONCE DAILY TAKING MIRALAX - PACKET 1 PACKET MIXED WITH 8 OUNCES OF FLUID ORALLY ONCE A DAY TAKING SUMATRIPTAN SUCCINATE 6 MG/0.5ML SOLUTION 0.5 ML NEEDED SUBCUTANEOUS NEEDED TAKING ZOFRAN 8 MG TABLET 1 TABLET ORALLY TWICE A DAY PRN NAUSEA TAKING BACLOFEN 20 MG TABLET 1 TABLET WITH FOOD OR MILK ORALLY THREE TIMES A DAY TAKING OXYCODONE HCL 10 MG TABLET 1 TABLET ORALLY Q 8-12 HOURS PRN SEVERE PAIN MDD=2 TAKING VALIUM 5 MG TABLET 1 TABLET NEEDED ORALLY Q 8-12 HOURSPRN SEVERE SPASM MDD=2 TAKING TRAMADOL HCL 50 MG TABLET 2 TAB ORALLY Q 4-6 HRS PRN PAIN MDD=6 TAKING MECLIZINE HCL 25 MG TABLET 1 TABLET NEEDED ORALLY BID PRN NAUSEA NOT-TAKING CARISOPRODOL 350 MG TABLET 1 TABLET NEEDED ORALLY FOR SPASMS AND PAIN EVERY 8 HOURS NEEDED MDD3 NOT-TAKING MAGNESIUM 1200 MG TABLET 1 TABLET ORALLY ONCE A DAY, NOTES: NONE LATELY MEDICATION LIST REVIEWED AND RECONCILED WITH THE PATIENT PAST MEDICAL HISTORY IBS FIBROMYALGIA PTSD ESOPHAGITIS HYPERLIPIDEMIA LOW BACK PAIN MIGRAINE HEADACHES CHRONIC PELVIC PAIN SLEEP APNEA SINUSITIS C DIFF NERVES IN EYES ARE SWOLLEN CHRONIC NECK PAIN ALLERGIES NORTRIPTYLINE HCL: HAIR LOSS - ALLERGY INDERAL: RASH, HIVES - ALLERGY CODEINE PHOSPHATE (FOR ALLERGIES USE ONLY): VOMITING/ NAILS - SIDE EFFECTS LYRICA: SHAKY, HAIR LOSS, ITCH - ALLERGY NEURONTIN: ANXIETY, ITCHING - ALLERGY TOPAMAX: HAIR LOSS - ALLERGY TRAZODONE HCL ER: HEADACHE - ALLERGY ZOCOR: BODY ACHE - SIDE EFFECTS MORPHINE SULFATE: VOMITING/ MIGRAINE - SIDE EFFECTS DEPAKOTE: HIVES - ALLERGY BOTOX: ITCHES / SWELLING - ALLERGY CARISOPRODOL: ANXIETY/OFF FEELING - SIDE EFFECTS SURGICAL HISTORY TONSILLECTOMY, ADENOIDECTOMY, REPAIR OF DEVIATED SEPTUM, DRAINAGE OF SINUSES 2011 FUSION L2 L3 2009 LAP KENNETH 2007 HYSTERECTOMY (TOTAL WITH SALPINGO-OOPHORECTOMY) WITH BLADDER AND PELVIC REPAIR 2003 SEVERAL PELVIC SURGURIES POST FOR PELVIC FLOOR ISSUES (HAS CHRONIC BOWEL AND BLADDER ISSUES A RESIDUAL). C-5 THROUGH C7 FUSION 2017 CYST REMOVED IN RIGHT LABIA AREA 05-22-2017 FAMILY HISTORY FATHER: ALIVE MOTHER: ALIVE STRONG FAMILY HISTORY OF AUTO IMMUNE DISEASES SUCH MULTIPLE SCLEROSIS, PSORIATIC ARTHRITIS, AND GOUT. SOCIAL HISTORY GENERAL: TOBACCO USE ARE YOU A:NEVER SMOKER LANGUAGE LANGUAGES SPOKEN:AMHARIC DOMESTIC VIOLENCE DO YOU FEEL SAFE IN YOUR ENVIRONMENT?YES RECREATIONAL DRUG USE DRUG USE?NO LEARNING BARRIERS / SPECIAL NEEDS BARRIERS TO LEARNING?NO HEARING IMPAIRED?NO VISION IMPAIRED?NO COGNITIVELY IMPAIRED?NO READINESS TO LEARN?YES LEARNING PREFERENCES?NO LEARNING CAPABILITIES PRESENT?YES EMOTIONAL BARRIERS?NO SPECIAL DEVICES?NO VOIP NETWORK ENGINEER NEEDED?NO PAIN CLINIC PFS, CLERGY, PUBLIC HEALTH REFERRALS PFS REFERRAL NEEDED?NO CLERGY REFERRAL NEEDED?NO PUBLIC HEALTH REFERRAL NEEDED?NO WAS THE PROVIDER NOTIFIED OF ANY PERTINENT INFO? N/A HAS THE PATIENT BEEN EDUCATED REGARDING HIS/HER PLAN OF CARE?YES HAS THE PATIENT BEEN EDUCATED REGARDING PAIN, THE RISK FOR PAIN, THE IMPORTANCE OF EFFECTIVE PAIN MANAGEMENT, AND THE PAIN ASSESSMENT PROCESS?YES LATEX QUESTIONNAIRE LATEX ALLERGY : HAVE YOU EVER DEVELOPED ANY TYPE OF REACTION AFTER HANDLING LATEX PRODUCTS SUCH RUBBER GLOVES, CONDOMS, DIAPHRAGMS, BALLOONS, SOCKS, OR UNDERWEAR?NO LATEX ALLERGY : HAVE YOU EVER DEVELOPED ANY TYPE OF REACTION DURING OR AFTER DENTAL APPOINTMENT, VAGINAL/RECTAL EXAMINATION, SURGICAL PROCEDURE, OR ANY OTHER EXPOSURE?NO DATE ASKED : 07/08/2019 LATEX RISK : HAVE YOU EVER HAD ANY DIFFICULTY BREATHING OR HIVES AFTER EATING OR HANDLING ANY FRUITS, OR VEGETABLES; SUCH KIWI, BANANAS, STONE FRUITS, OR CHESTNUTSNO LATEX RISK : DO YOU HAVE A PREVIOUS PERSONAL HISTORY OF MORE THAN NINE SURGERIES, SPINA BIFIDA, OR REPEATED CATHERIZATIONS? YES - PLEASE INDICATE : > 9 SURGERIES LATEX RISK : ARE YOU FREQUENTLY EXPOSED TO LATEX PRODUCTS IN YOUR OCCUPATION?NO CAFFEINE CAFFEINE USE?YES HOW OFTEN AND HOW MUCH? 1 CUP PER DAY ADVANCE DIRECTIVE ADVANCE DIRECTIVE DISCUSSED WITH PATIENT:YES HCP - ANGELICA JONES (MOTHER) MANDAEN [id number] NONE MARITAL STATUS: . ALCOHOL SCREENING DID YOU HAVE A DRINK CONTAINING ALCOHOL IN THE PAST YEAR?NO POINTS0 INTERPRETATIONNEGATIVE OCCUPATION: UNEMPLOYED. REVIEWED WITH PT 06/10/18 1515 LASREVIEWED WITH PATIENT 12/24/18 1023 JSREVIEWED WITH PATIENT 03/03/19 0906 JSREVIEWED WITH PT 04/07/19 1338 BV07/08/19 1323 REVIWED WITH PT. AD. HOSPITALIZATION/MAJOR DIAGNOSTIC PROCEDURE SEE ABOVE REVIEW OF SYSTEMS REVIEWED BY: PROVIDER: MARY PARNELL . CONSTITUTIONAL: ANY CHANGE IN YOUR MEDICAL CONDITION? NO . CHILLS NO . FEVER NO . INFECTION: DO YOU HAVE NEW INFECTIONS? NO . DO YOU HAVE HISTORY OF MRSA? NO . MUSCULOSKELETAL: ANY NEW PATTERNS OF PAIN OR NUMBNESS? NO . GASTROENTEROLOGY: ANY NEW CHANGE IN BOWEL CONTROL? NO . GENITOURINARY: ANY NEW CHANGE IN BLADDER CONTROL? NO . IS THERE A CHANCE YOU COULD BE ? NO . HEMATOLOGY/LYMPH: DO YOU TAKE ANY BLOOD THINNERS? (FOR EXAMPLE- COUMADIN, PLAVIX, AGGRENOX, PLATEL, PRADAXA, OR XARELTO) NO . WHEN WAS YOUR LAST DOSE? DATE: TIME: . NEUROLOGY: HAVE YOU FALLEN IN THE PAST 12 MONTHS? YES . ANY NEW EXTREMITY NUMBNESS OR WEAKNESS? NO . CARDIOLOGY: DO YOU HAVE A PACEMAKER OR DEFIBRILLATOR? NO . RESPIRATORY: HAVE YOU BEEN SICK IN THE PAST WEEK? NO . FEVER NO . FLU LIKE SYMPTOMS? NO . COUGH NO . INTEGUMENTARY: DO YOU HAVE ANY RASHES OR OPEN SORES? NO . ALLERGIC/IMMUNO: ARE YOU ALLERGIC TO IV DYE? NO . ANY NEW ALLERGIES? NO . PSYCHIATRIC: DO YOU HAVE THOUGHTS OF HURTING YOURSELF OR SOMEONE ELSE? NO . ARE YOU ABUSED, NEGLECTED, OR IN AN UNSAFE ENVIRONMENT? NO . ENDOCRINOLOGY: ARE YOU DIABETIC? NO . OTHER: DO YOU NEED ANY PRESCRIPTIONS? YES - BACLOFEN AND TRAMDOL . IF YES, PLEASE LIST: ____ . ANY NEW PROBLEMS WITH YOUR MEDICATIONS? NO . WHEN DID YOU LAST EAT? ____ . WHEN DID YOU LAST DRINK? ____ . WHAT DID YOU LAST DRINK? ____ . NAME OF PERSON DRIVING YOU HOME? ____ . DO YOU HAVE ANY OTHER QUESTIONS OR CONCERNS YES . VITAL SIGNS WT 143.2 LBS, HT 67 IN, BMI 22.43 INDEX, BP 121/73 MM HG, HR 70 /MIN, RR 16 /MIN, TEMP 97.1 F, OXYGEN SAT % 96%, NA INITIALS SC 09:46, REVIEWED BY: MAEVE. EXAMINATION GENERAL EXAMINATION: GENERALNO ACUTE DISTRESS, WELL NOURISHED AND HYDRATED. PSYCHAPPROPRIATE MOOD AND AFFECT . LUNGS:CLEAR TO AUSCULTATION BILATERALLY, NO WHEEZES, RHONCHI, RALES. HEART:NO MURMURS, REGULAR RATE AND RHYTHM. 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 GIVEN PRESENTING SYMPTOMS AND RESULTS OF PHYSICAL EXAMINATION RECOMMENDED INCREASING BACLOFEN TO 20 MG 4 TIMES A DAY WITH FOLLOW-UP IN 3 MONTHS. PATIENT EXPRESSED UNDERSTANDING OF AND WAS IN AGREEMENT WITH TREATMENT PLAN. GIVEN TIME TO ASK QUESTIONS AND EXPRESS CONCERNS., ISTOP REGISTRY REVIEWED AND DEMONSTRATES COMPLLIANCE. (REF # [id number] ) BRINGS IN MEDICATIONS WHICH IS APPROPRIATE FOR WHAT WAS DISPENSED. RECENT URINE TOXICOLOGY REVIEWED. NO UNAUTHORIZED MEDICATIONS. NO ILLICIT SUBSTANCES AND PRESCRIBED MEDICATIONS WERE PRESENT. PROCEDURE CODES FA211 ESTABILISHED PATIENT [facility] CHARGE DISPOSITION & COMMUNICATION FOLLOW UP 3 MONTHS (REASON: NECK AND BACK PAIN) ELECTRONICALLY SIGNED BY CANDELARIA OSBORN ON 10/08/2019 AT 01:14 PM EST DISCLAIMER : THIS IS A VISIT SUMMARY EXTRACTED FROM THE [employer] CHART. IT IS NOT A COPY OF THE [employer] PROGRESS NOTE. MELANY
== END ==
LOC: M PAIN 09:30
PROVIDERS: ATTEND Family Medicine
DX: M47.816 Spondylosis without myelopathy or radiculopathy, lumbar region (principal); M96.1 Postlaminectomy syndrome, not elsewhere classified

== ENCOUNTER → 2020-01-04 | Outpatient (CLI) | payer OTHER ==
--- NOTE | 2020-01-06 04:45 | ECWPNPC ---
PATIENT NAME: NOE SIDDIQUI : 1970 GENDER: FEMALE VISIT DATE: 01/04/2020 DISCHARGE DATE: 01/04/20 1329 VISIT LOCKED DATE TIME: PHYSICIAN: SHAHID DAMON RESOURCE: SHAHID DAMON REASON FOR APPOINTMENT 1. NECK AND BACK PAIN HISTORY OF PRESENT ILLNESS HISTORY OF PRESENT ILLNESS: PAIN THE PATIENT DESCRIBES THE PAIN... 49-YEAR-OLD FEMALE IN FOR CHRONIC PAIN FOLLOW-UP. SHE RATES HER PAIN CURRENTLY AT A 6 OUT OF 10. SHE FEELS HER MEDICATIONS ARE WORKING WELL AND DENIES MED SIDE EFFECTS THIS TIME. PATIENT'S BACLOFEN WAS INCREASED AT LAST CLINIC VISIT AND SHE FEELS THIS WAS HELPFUL IN MANAGING HER SYMPTOMS. FALL RISK SCREENING: SCREENING :NO FALLS REPORTED IN THE LAST YEAR CURRENT MEDICATIONS TAKING IMITREX 100 MG TABLET ORALLY NEEDED TAKING SINGULAIR 10 MG TABLET 1 TABLET IN THE EVENING ORALLY ONCE A DAY TAKING DETROL LA 4 MG CAPSULE EXTENDED RELEASE 24 HOUR 1 CAPSULE ORALLY ONCE A DAY TAKING VIVELLE-DOT 0.1 MG/24HR PATCH TWICE WEEKLY 1 PATCH TO SKIN TRANSDERMAL TWO TIMES A WEEK TAKING DYMISTA 137-50 MCG/ACT SUSPENSION 1 PUFF IN EACH NOSTRIL NASALLY TWICE A DAY TAKING CLARITIN 10 MG TABLET 1 TABLET ORALLY ONCE A DAY TAKING MULTIVITAMIN 1 CAP ORALLY ONCE DAILY TAKING MIRALAX - PACKET 1 PACKET MIXED WITH 8 OUNCES OF FLUID ORALLY ONCE A DAY TAKING SUMATRIPTAN SUCCINATE 6 MG/0.5ML SOLUTION 0.5 ML NEEDED SUBCUTANEOUS NEEDED TAKING ZOFRAN 8 MG TABLET 1 TABLET ORALLY TWICE A DAY PRN NAUSEA TAKING MECLIZINE HCL 25 MG TABLET 1 TABLET NEEDED ORALLY BID PRN NAUSEA TAKING TRAMADOL HCL 50 MG TABLET 2 TAB ORALLY Q 4-6 HRS PRN PAIN MDD=6 CATEGORY D MEDICATION 90 DAY SCRIPT PAIN MANAGMENT TAKING BACLOFEN 20 MG TABLET 1 TABLET WITH FOOD OR MILK ORALLY FOUR TIMES A DAY TAKING OXYCODONE HCL 10 MG TABLET 1 TABLET ORALLY Q 8-12 HOURS PRN SEVERE PAIN MDD=2 TAKING VALIUM 5 MG TABLET 1 TABLET NEEDED ORALLY Q 8-12 HOURSPRN SEVERE SPASM MDD=2 NOT-TAKING CARISOPRODOL 350 MG TABLET 1 TABLET NEEDED ORALLY FOR SPASMS AND PAIN EVERY 8 HOURS NEEDED MDD3 NOT-TAKING MAGNESIUM 1200 MG TABLET 1 TABLET ORALLY ONCE A DAY, NOTES: NONE LATELY MEDICATION LIST REVIEWED AND RECONCILED WITH THE PATIENT PAST MEDICAL HISTORY IBS FIBROMYALGIA PTSD ESOPHAGITIS HYPERLIPIDEMIA LOW BACK PAIN MIGRAINE HEADACHES CHRONIC PELVIC PAIN SLEEP APNEA SINUSITIS C DIFF NERVES IN EYES ARE SWOLLEN CHRONIC NECK PAIN ALLERGIES NORTRIPTYLINE HCL: HAIR LOSS - ALLERGY INDERAL: RASH, HIVES - ALLERGY CODEINE PHOSPHATE (FOR ALLERGIES USE ONLY): VOMITING/ NAILS - SIDE EFFECTS LYRICA: SHAKY, HAIR LOSS, ITCH - ALLERGY NEURONTIN: ANXIETY, ITCHING - ALLERGY TOPAMAX: HAIR LOSS - ALLERGY TRAZODONE HCL ER: HEADACHE - ALLERGY ZOCOR: BODY ACHE - SIDE EFFECTS MORPHINE SULFATE: VOMITING/ MIGRAINE - SIDE EFFECTS DEPAKOTE: HIVES - ALLERGY BOTOX: ITCHES / SWELLING - ALLERGY CARISOPRODOL: ANXIETY/OFF FEELING - SIDE EFFECTS SURGICAL HISTORY TONSILLECTOMY, ADENOIDECTOMY, REPAIR OF DEVIATED SEPTUM, DRAINAGE OF SINUSES 2011 FUSION L2 L3 2009 LAP KENNETH 2007 HYSTERECTOMY (TOTAL WITH SALPINGO-OOPHORECTOMY) WITH BLADDER AND PELVIC REPAIR 2003 SEVERAL PELVIC SURGURIES POST FOR PELVIC FLOOR ISSUES (HAS CHRONIC BOWEL AND BLADDER ISSUES A RESIDUAL). C-5 THROUGH C7 FUSION 2017 CYST REMOVED IN RIGHT LABIA AREA 05-22-2017 FAMILY HISTORY FATHER: ALIVE MOTHER: ALIVE STRONG FAMILY HISTORY OF AUTO IMMUNE DISEASES SUCH MULTIPLE SCLEROSIS, PSORIATIC ARTHRITIS, AND GOUT. HOSPITALIZATION/MAJOR DIAGNOSTIC PROCEDURE SEE ABOVE REVIEW OF SYSTEMS REVIEWED BY: PROVIDER: MARY DAMON [employer] ARCHITECT-C . CONSTITUTIONAL: ANY CHANGE IN YOUR MEDICAL CONDITION? NO . CHILLS NO . FEVER NO . INFECTION: DO YOU HAVE NEW INFECTIONS? NO . DO YOU HAVE HISTORY OF MRSA? NO . MUSCULOSKELETAL: ANY NEW PATTERNS OF PAIN OR NUMBNESS? YES . GASTROENTEROLOGY: ANY NEW CHANGE IN BOWEL CONTROL? NO . GENITOURINARY: ANY NEW CHANGE IN BLADDER CONTROL? NO . IS THERE A CHANCE YOU COULD BE ? NO . HEMATOLOGY/LYMPH: DO YOU TAKE ANY BLOOD THINNERS? (FOR EXAMPLE- COUMADIN, PLAVIX, AGGRENOX, PLATEL, PRADAXA, OR XARELTO) NO . WHEN WAS YOUR LAST DOSE? DATE: TIME: . NEUROLOGY: HAVE YOU FALLEN IN THE PAST 12 MONTHS? NO . ANY NEW EXTREMITY NUMBNESS OR WEAKNESS? NO . CARDIOLOGY: DO YOU HAVE A PACEMAKER OR DEFIBRILLATOR? NO . RESPIRATORY: HAVE YOU BEEN SICK IN THE PAST WEEK? NO . FEVER NO . FLU LIKE SYMPTOMS? NO . COUGH NO . INTEGUMENTARY: DO YOU HAVE ANY RASHES OR OPEN SORES? NO . ALLERGIC/IMMUNO: ARE YOU ALLERGIC TO IV DYE? NO . ANY NEW ALLERGIES? NO . PSYCHIATRIC: DO YOU HAVE THOUGHTS OF HURTING YOURSELF OR SOMEONE ELSE? NO . ARE YOU ABUSED, NEGLECTED, OR IN AN UNSAFE ENVIRONMENT? NO . ENDOCRINOLOGY: ARE YOU DIABETIC? NO . OTHER: DO YOU NEED ANY PRESCRIPTIONS? BACLOFEN DIAZAPAM OXYCODONE TRAMADOL . IF YES, PLEASE LIST: ____ . ANY NEW PROBLEMS WITH YOUR MEDICATIONS? NO . WHEN DID YOU LAST EAT? ____ . WHEN DID YOU LAST DRINK? ____ . WHAT DID YOU LAST DRINK? ____ . NAME OF PERSON DRIVING YOU HOME? ____ . DO YOU HAVE ANY OTHER QUESTIONS OR CONCERNS NO . VITAL SIGNS WT 139 LBS, HT 67 IN, BMI 21.77 INDEX, BP 122/66 MM HG, HR 94 /MIN, RR 16 /MIN, TEMP 97.0 F, OXYGEN SAT % 95%, NA INITIALS AW 1306. EXAMINATION GENERAL EXAMINATION: GENERALNO ACUTE DISTRESS, WELL NOURISHED AND HYDRATED. PSYCHAPPROPRIATE MOOD AND AFFECT . LUNGS:CLEAR TO AUSCULTATION BILATERALLY, NO WHEEZES, RHONCHI, RALES. HEART:NO MURMURS, REGULAR RATE AND RHYTHM. ASSESSMENTS SPONDYLOSIS WITHOUT MYELOPATHY OR RADICULOPATHY, LUMBOSACRAL REGION - M47.817 (PRIMARY) TREATMENT SPONDYLOSIS WITHOUT MYELOPATHY OR RADICULOPATHY, LUMBOSACRAL REGION REFILL ZOFRAN TABLET, 8 MG, 1 TABLET, ORALLY, TWICE A DAY PRN NAUSEA, 30 DAYS, 60 REFILL MECLIZINE HCL TABLET, 25 MG, 1 TABLET NEEDED, ORALLY, BID PRN NAUSEA, 90 DAYS, 180, REFILLS 4 REFILL TRAMADOL HCL TABLET, 50 MG, 2 TAB, ORALLY, Q 4-6 HRS PRN PAIN MDD=6 CATEGORY D MEDICATION 90 DAY SCRIPT PAIN MANAGMENT, 90 DAYS, 360, REFILLS 0 REFILL BACLOFEN TABLET, 20 MG, 1 TABLET WITH FOOD OR MILK, ORALLY, FOUR TIMES A DAY, 90 DAYS, 360, REFILLS 0 REFILL OXYCODONE HCL TABLET, 10 MG, 1 TABLET, ORALLY, Q 8-12 HOURS PRN SEVERE PAIN MDD=2, 30 DAYS, 60, REFILLS 0 CLINICAL NOTES: 49-YEAR-OLD FEMALE IN FOR CHRONIC PAIN FOLLOW-UP. GIVEN PRESENTING SYMPTOMS AND RESULTS OF PHYSICAL EXAMINATION RECOMMENDED CONTINUATION OF CURRENT MEDICATION REGIMEN WITH FOLLOW-UP IN 3 MONTHS. PATIENT HAS EXPRESSED UNDERSTANDING OF AND WAS IN AGREEMENT WITH TREATMENT PLAN. GIVEN TIME TO ASK QUESTIONS AND EXPRESS CONCERNS., ISTOP REGISTRY REVIEWED AND DEMONSTRATES COMPLLIANCE. (REF # [id number] ) BRINGS IN MEDICATIONS WHICH IS APPROPRIATE FOR WHAT WAS DISPENSED. RECENT URINE TOXICOLOGY REVIEWED. NO UNAUTHORIZED MEDICATIONS. NO ILLICIT SUBSTANCES AND PRESCRIBED MEDICATIONS WERE PRESENT. PROCEDURE CODES FA211 ESTABILISHED PATIENT [facility] CHARGE DISPOSITION & COMMUNICATION FOLLOW UP 3 MONTHS (REASON: BACK PAIN) ELECTRONICALLY SIGNED BY CANDELARIA OSBORN ON 01/05/2020 AT 09:02 AM EDT DISCLAIMER : THIS IS A VISIT SUMMARY EXTRACTED FROM THE [employer] CHART. IT IS NOT A COPY OF THE [employer] PROGRESS NOTE. MELANY
== END ==
LOC: M PAIN 13:00
PROVIDERS: ATTEND Family Medicine
DX: M47.817 Spondylosis without myelopathy or radiculopathy, lumbosacral region (principal)

== ENCOUNTER → 2020-03-24 | Outpatient (CLI) | payer OTHER ==
--- NOTE | 2020-03-29 04:55 | ECWPNPC ---
PATIENT NAME: NOE SIDDIQUI : 1970 GENDER: FEMALE VISIT DATE: 03/24/2020 DISCHARGE DATE: 03/24/20 1425 VISIT LOCKED DATE TIME: PHYSICIAN: SHAHID DAMON RESOURCE: SHAHID DAMON REASON FOR APPOINTMENT 1. NECK/BACK PAT DONE HISTORY OF PRESENT ILLNESS GENERAL: - PERMISSION REQUESTED AND RECEIVED FROM PATIENT TO PERFORM TELEPHONE VISIT. 49-YEAR-OLD FEMALE IN FOR CHRONIC PAIN FOLLOW-UP. SHE RATES HER PAIN CURRENTLY AT A 7 OUT OF 10 AND DESCRIBES IT SHARP, SHOOTING, AND A DULL ACHE. SHE FEELS HER MEDICATIONS ARE WORKING WELL AND DENIES MED SIDE EFFECTS THIS TIME. PAIN SCREENING: PATIENT HAS A COMPLAINT OF ACUTE OR CHRONIC PAIN :YES LOCATION OF PAIN:NECK, LOW BACK INTENSITY OF PAIN (SCALE OF 1 TO 10):7 WHAT DOES YOUR PAIN FEEL LIKE:SHOOTING PINCHED AND PULL DURATION:CONTINOUS, CONSTANT, ALL DAY PAIN IS INCREASED BY:ACTIVITIES WALKING, DRIVING, LIFTING PAIN HAS INTERFERED WITH THE FOLLOWING:MOOD, HOUSEWORK, RELATIONSHIP WITH OTHERS, ENJOYMENT OF LIFE PLAN/GOALS/TREATMENT/INTERVENTION/FOLLOW UP:SEE PLAN FALL RISK SCREENING: SCREENING :NO FALLS REPORTED IN THE LAST YEAR NURSING NOTE: -. DEPRESSION SCREENING: PHQ-2 (2015 EDITION) LITTLE INTEREST OR PLEASURE IN DOING THINGS?NOT AT ALL FEELING DOWN, DEPRESSED, OR HOPELESS?NOT AT ALL TOTAL SCORE0 PAIN CENTER INTAKE QUESTIONS: DO YOU HAVE A HISTORY OF MRSA? :NO DO YOU TAKE A BLOOD THINNERS? :NO DO YOU HAVE ANY BLEEDING DISORDERS? :NO ANY NEW NUMBNESS OR WEAKNESS IN YOUR LEGS OR ARMS? :NO ANY PACEMAKER,DEFIBRILLATOR, OR DORSAL COLUMN STIMULATOR? :NO DO YOU HAVE ANY RASHES OR OPEN SORES? :NO ARE YOU ALLERGIC TO IV DYE? :NO ARE YOU DIABETIC? :NO ANY NEW PROBLEMS WITH YOUR MEDICATIONS? :NO HAVE YOU RECEIVED A VACCINE IN THE PAST 30 DAYS? :NO DO YOU PLAN TO RECEIVE A VACCINE IN THE NEXT 21 DAYS? :NO DO YOU NEED ANY PRESCRIPTION? :YES BACLOFEN, TRAMADOL, OXYCODONE, VALIUM DO YOU TAKE ANY IMMUNOSUPPRESSIVE MEDICATIONS? :NO IS THERE A CHANCE YOU COULD BE ? :NO ARE YOU BREAST FEEDING? :NO CURRENT MEDICATIONS TAKING IMITREX 100 MG TABLET ORALLY NEEDED TAKING SINGULAIR 10 MG TABLET 1 TABLET IN THE EVENING ORALLY ONCE A DAY TAKING DETROL LA 4 MG CAPSULE EXTENDED RELEASE 24 HOUR 1 CAPSULE ORALLY ONCE A DAY TAKING VIVELLE-DOT 0.1 MG/24HR PATCH TWICE WEEKLY 1 PATCH TO SKIN TRANSDERMAL TWO TIMES A WEEK TAKING DYMISTA 137-50 MCG/ACT SUSPENSION 1 PUFF IN EACH NOSTRIL NASALLY TWICE A DAY TAKING CLARITIN 10 MG TABLET 1 TABLET ORALLY ONCE A DAY TAKING MULTIVITAMIN 1 CAP ORALLY ONCE DAILY TAKING MIRALAX - PACKET 1 PACKET MIXED WITH 8 OUNCES OF FLUID ORALLY ONCE A DAY TAKING SUMATRIPTAN SUCCINATE 6 MG/0.5ML SOLUTION 0.5 ML NEEDED SUBCUTANEOUS NEEDED TAKING ZOFRAN 8 MG TABLET 1 TABLET ORALLY TWICE A DAY PRN NAUSEA TAKING MECLIZINE HCL 25 MG TABLET 1 TABLET NEEDED ORALLY BID PRN NAUSEA TAKING TRAMADOL HCL 50 MG TABLET 2 TAB ORALLY Q 4-6 HRS PRN PAIN MDD=6 CATEGORY D MEDICATION 90 DAY SCRIPT PAIN MANAGMENT TAKING BACLOFEN 20 MG TABLET 1 TABLET WITH FOOD OR MILK ORALLY FOUR TIMES A DAY TAKING OXYCODONE HCL 10 MG TABLET 1 TABLET ORALLY Q 8-12 HOURS PRN SEVERE PAIN MDD=2 TAKING VALIUM 5 MG TABLET 1 TABLET NEEDED ORALLY Q 8-12 HOURSPRN SEVERE SPASM MDD=2 NOT-TAKING CARISOPRODOL 350 MG TABLET 1 TABLET NEEDED ORALLY FOR SPASMS AND PAIN EVERY 8 HOURS NEEDED MDD3 NOT-TAKING MAGNESIUM 1200 MG TABLET 1 TABLET ORALLY ONCE A DAY, NOTES: NONE LATELY MEDICATION LIST REVIEWED AND RECONCILED WITH THE PATIENT PAST MEDICAL HISTORY IBS FIBROMYALGIA PTSD ESOPHAGITIS HYPERLIPIDEMIA LOW BACK PAIN MIGRAINE HEADACHES CHRONIC PELVIC PAIN SLEEP APNEA SINUSITIS C DIFF NERVES IN EYES ARE SWOLLEN CHRONIC NECK PAIN ALLERGIES NORTRIPTYLINE HCL: HAIR LOSS - ALLERGY INDERAL: RASH, HIVES - ALLERGY CODEINE PHOSPHATE (FOR ALLERGIES USE ONLY): VOMITING/ NAILS - SIDE EFFECTS LYRICA: SHAKY, HAIR LOSS, ITCH - ALLERGY NEURONTIN: ANXIETY, ITCHING - ALLERGY TOPAMAX: HAIR LOSS - ALLERGY TRAZODONE HCL ER: HEADACHE - ALLERGY ZOCOR: BODY ACHE - SIDE EFFECTS MORPHINE SULFATE: VOMITING/ MIGRAINE - SIDE EFFECTS DEPAKOTE: HIVES - ALLERGY BOTOX: ITCHES / SWELLING - ALLERGY CARISOPRODOL: ANXIETY/OFF FEELING - SIDE EFFECTS SURGICAL HISTORY TONSILLECTOMY, ADENOIDECTOMY, REPAIR OF DEVIATED SEPTUM, DRAINAGE OF SINUSES 2011 FUSION L2 L3 2008 LAP KENNETH 2008 HYSTERECTOMY (TOTAL WITH SALPINGO-OOPHORECTOMY) WITH BLADDER AND PELVIC REPAIR 2003 SEVERAL PELVIC SURGURIES POST FOR PELVIC FLOOR ISSUES (HAS CHRONIC BOWEL AND BLADDER ISSUES A RESIDUAL). C-5 THROUGH C7 FUSION 2017 CYST REMOVED IN RIGHT LABIA AREA 05-22-2017 FAMILY HISTORY FATHER: ALIVE MOTHER: ALIVE STRONG FAMILY HISTORY OF AUTO IMMUNE DISEASES SUCH MULTIPLE SCLEROSIS, PSORIATIC ARTHRITIS, AND GOUT. SOCIAL HISTORY GENERAL: TOBACCO USE ARE YOU A:NEVER SMOKER LATEX QUESTIONNAIRE LATEX ALLERGY : HAVE YOU EVER DEVELOPED ANY TYPE OF REACTION AFTER HANDLING LATEX PRODUCTS SUCH RUBBER GLOVES, CONDOMS, DIAPHRAGMS, BALLOONS, SOCKS, OR UNDERWEAR?NO LATEX ALLERGY : HAVE YOU EVER DEVELOPED ANY TYPE OF REACTION DURING OR AFTER DENTAL APPOINTMENT, VAGINAL/RECTAL EXAMINATION, SURGICAL PROCEDURE, OR ANY OTHER EXPOSURE?NO LATEX RISK : HAVE YOU EVER HAD ANY DIFFICULTY BREATHING OR HIVES AFTER EATING OR HANDLING ANY FRUITS, OR VEGETABLES; SUCH KIWI, BANANAS, STONE FRUITS, OR CHESTNUTSNO LATEX RISK : DO YOU HAVE A PREVIOUS PERSONAL HISTORY OF MORE THAN NINE SURGERIES, SPINA BIFIDA, OR REPEATED CATHERIZATIONS? YES - PLEASE INDICATE : > 9 SURGERIES LATEX RISK : ARE YOU FREQUENTLY EXPOSED TO LATEX PRODUCTS IN YOUR OCCUPATION?NO DATE ASKED : 03/23/2020 ALCOHOL SCREENING DID YOU HAVE A DRINK CONTAINING ALCOHOL IN THE PAST YEAR?NO POINTS0 INTERPRETATIONNEGATIVE RECREATIONAL DRUG USE DRUG USE?NO CAFFEINE CAFFEINE USE?YES HOW OFTEN AND HOW MUCH? 1 CUP PER DAY BUDDHISM [id number] NONE LANGUAGE LANGUAGES SPOKEN:YAKUT LEARNING BARRIERS / SPECIAL NEEDS BARRIERS TO LEARNING?NO HEARING IMPAIRED?NO VISION IMPAIRED?NO COGNITIVELY IMPAIRED?NO READINESS TO LEARN?YES LEARNING PREFERENCES?NO LEARNING CAPABILITIES PRESENT?YES EMOTIONAL BARRIERS?NO SPECIAL DEVICES?NO BILLING COLLECTIONS SPECIALIST NEEDED?NO DOMESTIC VIOLENCE DO YOU FEEL SAFE IN YOUR ENVIRONMENT?YES OCCUPATION: UNEMPLOYED. MARITAL STATUS: . PAIN CLINIC PFS, CLERGY, PUBLIC HEALTH REFERRALS PFS REFERRAL NEEDED?NO CLERGY REFERRAL NEEDED?NO PUBLIC HEALTH REFERRAL NEEDED?NO WAS THE PROVIDER NOTIFIED OF ANY PERTINENT INFO? N/A HAS THE PATIENT BEEN EDUCATED REGARDING HIS/HER PLAN OF CARE?YES HAS THE PATIENT BEEN EDUCATED REGARDING PAIN, THE RISK FOR PAIN, THE IMPORTANCE OF EFFECTIVE PAIN MANAGEMENT, AND THE PAIN ASSESSMENT PROCESS?YES ADVANCE DIRECTIVE ADVANCE DIRECTIVE DISCUSSED WITH PATIENT:YES HCP - ANGELICA JONES (MOTHER) HOSPITALIZATION/MAJOR DIAGNOSTIC PROCEDURE SEE ABOVE REVIEW OF SYSTEMS CONSTITUTIONAL: ANY RECENT FEVER OR ILLNESS NO . CHILLS NO . GASTROENTEROLOGY: BOWEL INCONTINENCE NO . ANY NEW CHANGE IN BOWEL CONTROL? NO . ABDOMINAL PAIN NO . CONSTIPATION NO . GENITOURINARY: ANY NEW CHANGE IN BLADDER CONTROL? NO . URINARY INCONTINENCE NO . CARDIOLOGY: CHEST PRESSURE NO . CHEST PAIN NO . RESPIRATORY: COUGH NO . SHORTNESS OF BREATH NO . EXAMINATION GENERAL EXAMINATION: PSYCHAPPROPRIATE MOOD AND AFFECT , ORIENTED X 3. ASSESSMENTS SPONDYLOSIS WITHOUT MYELOPATHY OR RADICULOPATHY, LUMBOSACRAL REGION - M47.817 (PRIMARY) TREATMENT SPONDYLOSIS WITHOUT MYELOPATHY OR RADICULOPATHY, LUMBOSACRAL REGION REFILL TRAMADOL HCL TABLET, 50 MG, 2 TAB, ORALLY, Q 4-6 HRS PRN PAIN MDD=6 CATEGORY D MEDICATION 90 DAY SCRIPT PAIN MANAGMENT, 90 DAYS, 360, REFILLS 0 REFILL BACLOFEN TABLET, 20 MG, 1 TABLET WITH FOOD OR MILK, ORALLY, FOUR TIMES A DAY, 90 DAYS, 360, REFILLS 0 REFILL OXYCODONE HCL TABLET, 10 MG, 1 TABLET, ORALLY, Q 8-12 HOURS PRN SEVERE PAIN MDD=2, 30 DAYS, 60, REFILLS 0 REFILL VALIUM TABLET, 5 MG, 1 TABLET NEEDED, ORALLY, Q 8-12 HOURSPRN SEVERE SPASM MDD=2, 30 DAYS, 30, REFILLS 0 CLINICAL NOTES: 49-YEAR-OLD FEMALE IN FOR CHRONIC PAIN FOLLOW-UP. GIVEN PRESENTING SYMPTOMS RECOMMENDED CONTINUATION OF CURRENT MEDICATION REGIMEN WITH FOLLOW-UP IN 3 MONTHS. PATIENT HAS EXPRESSED UNDERSTANDING OF AND WAS IN AGREEMENT WITH TREATMENT PLAN. GIVEN TIME TO ASK QUESTIONS AND EXPRESS CONCERNS. , ISTOP REGISTRY REVIEWED AND DEMONSTRATES COMPLLIANCE. (REF # [id number] ) BRINGS IN MEDICATIONS WHICH IS APPROPRIATE FOR WHAT WAS DISPENSED. RECENT URINE TOXICOLOGY REVIEWED. NO UNAUTHORIZED MEDICATIONS. NO ILLICIT SUBSTANCES AND PRESCRIBED MEDICATIONS WERE PRESENT. VISIT TO BE BILLED BASED ON TIME SPENT WITH PATIENT. TIME SPENT WITH PATIENT 11 MINUTES. OTHERS NOTES: VITALS NOT OBTAINED DUE TO VIRTUAL VISIT, PRE-SCREENING COMPLETED,03/23/20,NA. DISPOSITION & COMMUNICATION FOLLOW UP 3 MONTHS (REASON: NECK PAIN BACK PAIN) ELECTRONICALLY SIGNED BY CANDELARIA OSBORN ON 03/28/2020 AT 08:37 AM EDT DISCLAIMER : THIS IS A VISIT SUMMARY EXTRACTED FROM THE [employer] CHART. IT IS NOT A COPY OF THE [employer] PROGRESS NOTE. MTDD
== END ==
LOC: M PAIN 13:45
PROVIDERS: ATTEND Family Medicine
DX: M47.817 Spondylosis without myelopathy or radiculopathy, lumbosacral region (principal)

== ENCOUNTER → 2020-07-07 | Outpatient (CLI) | payer OTHER | LOC: M PAIN 13:12 | PROVIDERS: ATTEND Family Medicine | DX: M51.17 Intervertebral disc disorders with radiculopathy, lumbosacral region (principal) ==

== ENCOUNTER → 2020-12-26 | Outpatient (CLI) | payer OTHER ==
--- NOTE | 2020-12-28 07:00 | ECWPNPC ---
PATIENT NAME: NOE SIDDIQUI : 1970 GENDER: FEMALE VISIT DATE: 12/26/2020 DISCHARGE DATE: 12/26/20 1421 VISIT LOCKED DATE TIME: PHYSICIAN: SHAHID DAMON RESOURCE: SHAHID DAMON REASON FOR APPOINTMENT 1. 3 MONTH BACK PAIN HISTORY OF PRESENT ILLNESS DEPRESSION SCREENING: PHQ-2 (2015 EDITION) LITTLE INTEREST OR PLEASURE IN DOING THINGS?NOT AT ALL FEELING DOWN, DEPRESSED, OR HOPELESS?DECLINED TO SPECIFY TOTAL SCORE0 50-YEAR-OLD FEMALE IN FOR CHRONIC PAIN FOLLOW-UP. SHE RATES HER PAIN CURRENTLY AT AN 8 OUT OF 10 AND DESCRIBES IT ACHING, BURNING, CONTINUOUS, AND STABBING. SHE FEELS HER MEDICATIONS ARE HELPFUL AND DENIES MED SIDE EFFECTS AT THIS TIME. PATIENT DOES ADMIT TO INCREASED SPASMS. GENERAL: -. FALL RISK SCREENING: SCREENING MULTIPLE FALLS REPORTED IN THE LAST YEAR. PATIENT SOUGHT MEDICAL TREATMENT FOR ONE FALL.. PAIN SCREENING: PATIENT HAS A COMPLAINT OF ACUTE OR CHRONIC PAIN :YES LOCATION OF PAIN:NECK, BOTH SHOULDERS, LOW BACK, LEFT HIP, RIGHT HIP INTENSITY OF PAIN (SCALE OF 1 TO 10):8 WHAT DOES YOUR PAIN FEEL LIKE:ACHING, BURNING, CONTINOUS, STABBING DURATION:CONTINOUS, CONSTANT, AWAKENS FROM SLEEP PAIN IS INCREASED BY:ACTIVITIES, PROLONGED STANDING PAIN IS DECREASED BY:OTHERS HEAT, MINERAL BATHS, MUSCLE RUB, STRETCHING NURSING NOTE: -. PAIN CENTER INTAKE QUESTIONS: DO YOU HAVE A HISTORY OF MRSA? :NO DO YOU TAKE A BLOOD THINNERS? :NO DO YOU HAVE ANY BLEEDING DISORDERS? :NO ANY NEW NUMBNESS OR WEAKNESS IN YOUR LEGS OR ARMS? :YES INCREASED NUMBNESS AND WEAKNESS IN ARMS ANY PACEMAKER,DEFIBRILLATOR, OR DORSAL COLUMN STIMULATOR? :NO DO YOU HAVE ANY RASHES OR OPEN SORES? :NO ARE YOU ALLERGIC TO IV DYE? :NO ARE YOU DIABETIC? :NO ANY NEW PROBLEMS WITH YOUR MEDICATIONS? :NO HAVE YOU RECEIVED A VACCINE IN THE PAST 30 DAYS? :NO DO YOU PLAN TO RECEIVE A VACCINE IN THE NEXT 21 DAYS? :NO DO YOU NEED ANY PRESCRIPTION? :YES TRAMADOL, BACLOFEN, ZOFRAN, OXYCODONE DO YOU TAKE ANY IMMUNOSUPPRESSIVE MEDICATIONS? :NO DO YOU HAVE ANY KIDNEY OR LIVER DISEASE? :NO IS THERE A CHANCE YOU COULD BE ? :NO ARE YOU BREAST FEEDING? :NO CURRENT MEDICATIONS TAKING IMITREX 100 MG TABLET ORALLY NEEDED TAKING SINGULAIR 10 MG TABLET 1 TABLET IN THE EVENING ORALLY ONCE A DAY TAKING DETROL LA 4 MG CAPSULE EXTENDED RELEASE 24 HOUR 1 CAPSULE ORALLY ONCE A DAY TAKING VIVELLE-DOT 0.1 MG/24HR PATCH TWICE WEEKLY 1 PATCH TO SKIN TRANSDERMAL TWO TIMES A WEEK TAKING DYMISTA 137-50 MCG/ACT SUSPENSION 1 PUFF IN EACH NOSTRIL NASALLY TWICE A DAY TAKING CLARITIN 10 MG TABLET 1 TABLET ORALLY ONCE A DAY TAKING MULTIVITAMIN 1 CAP ORALLY ONCE DAILY TAKING MIRALAX - PACKET 1 PACKET MIXED WITH 8 OUNCES OF FLUID ORALLY ONCE A DAY TAKING SUMATRIPTAN SUCCINATE 6 MG/0.5ML SOLUTION 0.5 ML NEEDED SUBCUTANEOUS NEEDED TAKING ZOFRAN 8 MG TABLET 1 TABLET ORALLY TWICE A DAY PRN NAUSEA TAKING MECLIZINE HCL 25 MG TABLET 1 TABLET NEEDED ORALLY BID PRN NAUSEA TAKING TRAMADOL HCL 50 MG TABLET 2 TAB ORALLY Q 4-6 HRS PRN PAIN MDD=6 CATEGORY D MEDICATION 90 DAY SCRIPT PAIN MANAGMENT TAKING OXYCODONE HCL 10 MG TABLET 1 TABLET ORALLY Q 8-12 HOURS PRN SEVERE PAIN MDD=2 TAKING BACLOFEN 20 MG TABLET 1 TABLET WITH FOOD OR MILK ORALLY FOUR TIMES A DAY TAKING VALIUM 5 MG TABLET 1 TABLET NEEDED ORALLY Q 8-12 HOURSPRN SEVERE SPASM MDD=2 NOT-TAKING CARISOPRODOL 350 MG TABLET 1 TABLET NEEDED ORALLY FOR SPASMS AND PAIN EVERY 8 HOURS NEEDED MDD3 NOT-TAKING MAGNESIUM 1200 MG TABLET 1 TABLET ORALLY ONCE A DAY, NOTES: NONE LATELY MEDICATION LIST REVIEWED AND RECONCILED WITH THE PATIENT PAST MEDICAL HISTORY IBS FIBROMYALGIA PTSD ESOPHAGITIS HYPERLIPIDEMIA LOW BACK PAIN MIGRAINE HEADACHES CHRONIC PELVIC PAIN SLEEP APNEA SINUSITIS C DIFF NERVES IN EYES ARE SWOLLEN CHRONIC NECK PAIN ALLERGIES NORTRIPTYLINE HCL: HAIR LOSS - ALLERGY INDERAL: RASH, HIVES - ALLERGY CODEINE PHOSPHATE (FOR ALLERGIES USE ONLY): VOMITING/ NAILS - SIDE EFFECTS LYRICA: SHAKY, HAIR LOSS, ITCH - ALLERGY NEURONTIN: ANXIETY, ITCHING - ALLERGY TOPAMAX: HAIR LOSS - ALLERGY TRAZODONE HCL ER: HEADACHE - ALLERGY ZOCOR: BODY ACHE - SIDE EFFECTS MORPHINE SULFATE: VOMITING/ MIGRAINE - SIDE EFFECTS DEPAKOTE: HIVES - ALLERGY BOTOX: ITCHES / SWELLING - ALLERGY CARISOPRODOL: ANXIETY/OFF FEELING - SIDE EFFECTS SOCIAL HISTORY GENERAL: TOBACCO USE ARE YOU A:NEVER SMOKER LATEX QUESTIONNAIRE LATEX ALLERGY : HAVE YOU EVER DEVELOPED ANY TYPE OF REACTION AFTER HANDLING LATEX PRODUCTS SUCH RUBBER GLOVES, CONDOMS, DIAPHRAGMS, BALLOONS, SOCKS, OR UNDERWEAR?NO LATEX ALLERGY : HAVE YOU EVER DEVELOPED ANY TYPE OF REACTION DURING OR AFTER DENTAL APPOINTMENT, VAGINAL/RECTAL EXAMINATION, SURGICAL PROCEDURE, OR ANY OTHER EXPOSURE?NO LATEX RISK : HAVE YOU EVER HAD ANY DIFFICULTY BREATHING OR HIVES AFTER EATING OR HANDLING ANY FRUITS, OR VEGETABLES; SUCH KIWI, BANANAS, STONE FRUITS, OR CHESTNUTSNO LATEX RISK : DO YOU HAVE A PREVIOUS PERSONAL HISTORY OF MORE THAN NINE SURGERIES, SPINA BIFIDA, OR REPEATED CATHERIZATIONS? YES - PLEASE INDICATE : > 9 SURGERIES LATEX RISK : ARE YOU FREQUENTLY EXPOSED TO LATEX PRODUCTS IN YOUR OCCUPATION?NO DATE ASKED : 12/26/2020 ALCOHOL USE: NO. ALCOHOL SCREENING DID YOU HAVE A DRINK CONTAINING ALCOHOL IN THE PAST YEAR?NO POINTS0 INTERPRETATIONNEGATIVE RECREATIONAL DRUG USE DRUG USE?NO CAFFEINE CAFFEINE USE?YES HOW OFTEN AND HOW MUCH? 1 CUP PER DAY MU-ISM [id number] NONE LANGUAGE LANGUAGES SPOKEN:AZERI LEARNING BARRIERS / SPECIAL NEEDS BARRIERS TO LEARNING?NO HEARING IMPAIRED?NO VISION IMPAIRED?YES :CORRECTIVE LENSES COGNITIVELY IMPAIRED?NO READINESS TO LEARN?YES LEARNING PREFERENCES?NO LEARNING CAPABILITIES PRESENT?YES EMOTIONAL BARRIERS?NO SPECIAL DEVICES?NO GEOMETRY TUTOR NEEDED?NO DOMESTIC VIOLENCE DO YOU FEEL SAFE IN YOUR ENVIRONMENT?YES OCCUPATION: UNEMPLOYED. MARITAL STATUS: . - PFS REFERRAL NEEDED?NO CLERGY REFERRAL NEEDED?NO PUBLIC HEALTH REFERRAL NEEDED?NO WAS THE PROVIDER NOTIFIED OF ANY PERTINENT INFO? N/A HAS THE PATIENT BEEN EDUCATED REGARDING HIS/HER PLAN OF CARE?YES HAS THE PATIENT BEEN EDUCATED REGARDING PAIN, THE RISK FOR PAIN, THE IMPORTANCE OF EFFECTIVE PAIN MANAGEMENT, AND THE PAIN ASSESSMENT PROCESS?YES ADVANCE DIRECTIVE ADVANCE DIRECTIVE DISCUSSED WITH PATIENT:YES HCP - ULYSSES SIDDIQUI (DAUGHTER) REVIEW OF SYSTEMS CONSTITUTIONAL: ANY RECENT FEVER NO . CHILLS NO . WEIGHT CHANGE OF UNKNOWN REASONS NO . GASTROENTEROLOGY: NEW UNEXPLAINABLE CHANGES IN BOWEL CONTROL NO . CONSTIPATION NO . GENITOURINARY: ANY NEW CHANGE IN BLADDER CONTROL? NO . NEUROLOGY: NEW ONSET DIZZINESS OR NEUROLOGICAL CHANGES NOT MENTIONED NO . NEW NUMBNESS OR PAIN PATTERNS NOT MENTIONED AND PERTINENT TO TODAY'S VISIT NO . CARDIOLOGY: NEW CHEST PRESSURE NO . PATIENT DENIES NO . RESPIRATORY: UNEXPLAINABLE COUGH NO . NEW SHORTNESS OF BREATH NO . VITAL SIGNS WT 134.2 LBS, HT 67 IN, BMI 21.02 INDEX, BP 131/65 MM HG, HR 92 /MIN, RR 18 /MIN, TEMP 98.1 F, OXYGEN SAT % 95%, SAFE IN ENV? (Y/N) YES, REVIEWED BY: CECIL LOUIE MA. EXAMINATION GENERAL EXAMINATION: GENERALNO ACUTE DISTRESS, WELL NOURISHED AND HYDRATED. PSYCHAPPROPRIATE MOOD AND AFFECT . LUNGS:CLEAR TO AUSCULTATION BILATERALLY, NO WHEEZES, RHONCHI, RALES. HEART:NO MURMURS, REGULAR RATE AND RHYTHM. ASSESSMENTS SPONDYLOSIS WITHOUT MYELOPATHY OR RADICULOPATHY, LUMBOSACRAL REGION - M47.817 (PRIMARY) TREATMENT SPONDYLOSIS WITHOUT MYELOPATHY OR RADICULOPATHY, LUMBOSACRAL REGION CLINICAL NOTES: PATIENT DECLINED TO SPECIFY ON PHQ2. PROVIDER NOTIFIED. NICHOLE LOUIE MA. OTHERS REFILL OXYCODONE HCL TABLET, 10 MG, 1 TABLET, ORALLY, Q 8-12 HOURS PRN SEVERE PAIN MDD=2, 30 DAYS, 60, REFILLS 0 REFILL BACLOFEN TABLET, 20 MG, 1 TABLET WITH FOOD OR MILK, ORALLY, FOUR TIMES A DAY, 90 DAYS, 360, REFILLS 0 REFILL VALIUM TABLET, 5 MG, 1 TABLET NEEDED, ORALLY, Q 8-12 HOURSPRN SEVERE SPASM MDD=2, 30 DAYS, 45, REFILLS 0 REFILL TRAMADOL HCL TABLET, 50 MG, 2 TAB, ORALLY, Q 4-6 HRS PRN PAIN MDD=6 CATEGORY D MEDICATION 90 DAY SCRIPT PAIN MANAGMENT, 90 DAYS, 360, REFILLS 0 NOTES: 50-YEAR-OLD FEMALE IN FOR CHRONIC PAIN FOLLOW-UP. GIVEN PRESENTING SYMPTOMS RECOMMEND INCREASING NUMBER OF DIAZEPAM TABS TO 45 WITH FOLLOW-UP IN 3 MONTHS. PATIENT HAS EXPRESSED UNDERSTANDING OF AND WAS IN AGREEMENT WITH TREATMENT PLAN. GIVEN TIME TO ASK QUESTIONS AND EXPRESS CONCERNS. , ISTOP REGISTRY REVIEWED AND DEMONSTRATES COMPLLIANCE. (REF # [id number] ) BRINGS IN MEDICATIONS WHICH IS APPROPRIATE FOR WHAT WAS DISPENSED. RECENT URINE TOXICOLOGY REVIEWED. NO UNAUTHORIZED MEDICATIONS. NO ILLICIT SUBSTANCES AND PRESCRIBED MEDICATIONS WERE PRESENT. PROCEDURE CODES [id number] ESTABILISHED PATIENT [facility] CHARGE DISPOSITION & COMMUNICATION FOLLOW UP 3 MONTHS (REASON: NECK AND BACK PAIN) ELECTRONICALLY SIGNED BY CANDELARIA OSBORN ON 12/27/2020 AT 01:08 PM EDT DISCLAIMER : THIS IS A VISIT SUMMARY EXTRACTED FROM THE [employer] CHART. IT IS NOT A COPY OF THE [employer] PROGRESS NOTE. MELANY
== END ==
LOC: M PAIN 13:30
PROVIDERS: ATTEND Family Medicine
DX: M47.817 Spondylosis without myelopathy or radiculopathy, lumbosacral region (principal); G89.29 Other chronic pain; M79.7 Fibromyalgia; G43.909 Migraine, unspecified, not intractable, without status migrainosus; G47.30 Sleep apnea, unspecified; Z86.59 Personal history of other mental and behavioral disorders; Z88.5 Allergy status to narcotic agent; Z88.8 Allergy status to other drugs, medicaments and biological substances; Z79.891 Long term (current) use of opiate analgesic; Z79.899 Other long term (current) drug therapy

== ENCOUNTER → 2021-04-20 | Outpatient (CLI) | payer OTHER ==
--- NOTE | 2021-04-22 00:32 | ECWPNPC ---
PATIENT NAME: NOE SIDDIQUI : 1970 GENDER: FEMALE VISIT DATE: 04/20/2021 DISCHARGE DATE: 04/20/21 1046 VISIT LOCKED DATE TIME: PHYSICIAN: SHAHID DAMON RESOURCE: SHAHID DAMON REASON FOR APPOINTMENT 1. NECK AND BACK PAIN HISTORY OF PRESENT ILLNESS GENERAL: HPI 50-YEAR-OLD FEMALE IN FOR CHRONIC PAIN FOLLOW-UP. SHE FEELS HER MEDICATIONS ARE HELPFUL AND DENIES MED SIDE EFFECTS AT THIS TIME. SHE RATES HER PAIN CURRENTLY AT A 7.5 OUT OF 10 AND DESCRIBES IT ACHING, CONTINUOUS, SHARP, AND STABBING.. -. FALL RISK SCREENING: SCREENING : NO FALLS REPORTED IN THE LAST YEAR. PAIN SCREENING: PATIENT HAS A COMPLAINT OF ACUTE OR CHRONIC PAIN :YES LOCATION OF PAIN:NECK, LOW BACK INTENSITY OF PAIN (SCALE OF 1 TO 10):7.5 WHAT DOES YOUR PAIN FEEL LIKE:ACHING, CONTINOUS, SHARP, STABBING, OTHER SPASMS DURATION:CONTINOUS PAIN IS INCREASED BY:ACTIVITIES PAIN IS DECREASED BY:OTHERS HEAT, MASSAGE, STRETCHING NURSING NOTE: -. PAIN CENTER INTAKE QUESTIONS: DO YOU HAVE A HISTORY OF MRSA? :NO DO YOU TAKE A BLOOD THINNERS? :NO DO YOU HAVE ANY BLEEDING DISORDERS? :NO ANY NEW NUMBNESS OR WEAKNESS IN YOUR LEGS OR ARMS? :NO ANY PACEMAKER,DEFIBRILLATOR, OR DORSAL COLUMN STIMULATOR? :NO DO YOU HAVE ANY RASHES OR OPEN SORES? :NO ARE YOU ALLERGIC TO IV DYE? :NO ARE YOU DIABETIC? :NO ANY NEW PROBLEMS WITH YOUR MEDICATIONS? :NO HAVE YOU RECEIVED A VACCINE IN THE PAST 30 DAYS? :NO DO YOU PLAN TO RECEIVE A VACCINE IN THE NEXT 21 DAYS? :NO DO YOU NEED ANY PRESCRIPTION? :YES MECLIZINE, ZOFRAN, BACLOFEN, TRAMADOL, OXYCODONE, VALIUM DO YOU TAKE ANY IMMUNOSUPPRESSIVE MEDICATIONS? :NO DO YOU HAVE ANY KIDNEY OR LIVER DISEASE? :NO IS THERE A CHANCE YOU COULD BE ? :NO ARE YOU BREAST FEEDING? :NO CURRENT MEDICATIONS TAKING IMITREX 100 MG TABLET ORALLY NEEDED TAKING SINGULAIR 10 MG TABLET 1 TABLET IN THE EVENING ORALLY ONCE A DAY TAKING DETROL LA 4 MG CAPSULE EXTENDED RELEASE 24 HOUR 1 CAPSULE ORALLY ONCE A DAY TAKING VIVELLE-DOT 0.1 MG/24HR PATCH TWICE WEEKLY 1 PATCH TO SKIN TRANSDERMAL TWO TIMES A WEEK TAKING DYMISTA 137-50 MCG/ACT SUSPENSION 1 PUFF IN EACH NOSTRIL NASALLY TWICE A DAY TAKING CLARITIN 10 MG TABLET 1 TABLET ORALLY ONCE A DAY TAKING MULTIVITAMIN 1 CAP ORALLY ONCE DAILY TAKING MIRALAX - PACKET 1 PACKET MIXED WITH 8 OUNCES OF FLUID ORALLY ONCE A DAY TAKING SUMATRIPTAN SUCCINATE 6 MG/0.5ML SOLUTION 0.5 ML NEEDED SUBCUTANEOUS NEEDED TAKING ZOFRAN 8 MG TABLET 1 TABLET ORALLY TWICE A DAY PRN NAUSEA TAKING MECLIZINE HCL 25 MG TABLET 1 TABLET NEEDED ORALLY BID PRN NAUSEA TAKING OXYCODONE HCL 10 MG TABLET 1 TABLET ORALLY Q 8-12 HOURS PRN SEVERE PAIN MDD=2 TAKING BACLOFEN 20 MG TABLET 1 TABLET WITH FOOD OR MILK ORALLY FOUR TIMES A DAY TAKING VALIUM 5 MG TABLET 1 TABLET NEEDED ORALLY Q 8-12 HOURSPRN SEVERE SPASM MDD=2 TAKING TRAMADOL HCL 50 MG TABLET 2 TAB ORALLY Q 4-6 HRS PRN PAIN MDD=6 CATEGORY D MEDICATION 90 DAY SCRIPT PAIN MANAGMENT TAKING MAY USE AZO OTC MEDICATION FOR BLADDER SPASMS PRN NOT-TAKING CARISOPRODOL 350 MG TABLET 1 TABLET NEEDED ORALLY FOR SPASMS AND PAIN EVERY 8 HOURS NEEDED MDD3 NOT-TAKING MAGNESIUM 1200 MG TABLET 1 TABLET ORALLY ONCE A DAY, NOTES: NONE LATELY MEDICATION LIST REVIEWED AND RECONCILED WITH THE PATIENT PAST MEDICAL HISTORY IBS FIBROMYALGIA PTSD ESOPHAGITIS HYPERLIPIDEMIA LOW BACK PAIN MIGRAINE HEADACHES CHRONIC PELVIC PAIN SLEEP APNEA SINUSITIS C DIFF NERVES IN EYES ARE SWOLLEN CHRONIC NECK PAIN ALLERGIES NORTRIPTYLINE HCL: HAIR LOSS - ALLERGY INDERAL: RASH, HIVES - ALLERGY CODEINE PHOSPHATE (FOR ALLERGIES USE ONLY): VOMITING/ NAILS - SIDE EFFECTS LYRICA: SHAKY, HAIR LOSS, ITCH - ALLERGY NEURONTIN: ANXIETY, ITCHING - ALLERGY TOPAMAX: HAIR LOSS - ALLERGY TRAZODONE HCL ER: HEADACHE - ALLERGY ZOCOR: BODY ACHE - SIDE EFFECTS MORPHINE SULFATE: VOMITING/ MIGRAINE - SIDE EFFECTS DEPAKOTE: HIVES - ALLERGY BOTOX: ITCHES / SWELLING - ALLERGY CARISOPRODOL: ANXIETY/OFF FEELING - SIDE EFFECTS SOCIAL HISTORY GENERAL: TOBACCO USE ARE YOU A:NEVER SMOKER LATEX QUESTIONNAIRE LATEX ALLERGY : HAVE YOU EVER DEVELOPED ANY TYPE OF REACTION AFTER HANDLING LATEX PRODUCTS SUCH RUBBER GLOVES, CONDOMS, DIAPHRAGMS, BALLOONS, SOCKS, OR UNDERWEAR?NO LATEX ALLERGY : HAVE YOU EVER DEVELOPED ANY TYPE OF REACTION DURING OR AFTER DENTAL APPOINTMENT, VAGINAL/RECTAL EXAMINATION, SURGICAL PROCEDURE, OR ANY OTHER EXPOSURE?NO LATEX RISK : HAVE YOU EVER HAD ANY DIFFICULTY BREATHING OR HIVES AFTER EATING OR HANDLING ANY FRUITS, OR VEGETABLES; SUCH KIWI, BANANAS, STONE FRUITS, OR CHESTNUTSNO LATEX RISK : DO YOU HAVE A PREVIOUS PERSONAL HISTORY OF MORE THAN NINE SURGERIES, SPINA BIFIDA, OR REPEATED CATHERIZATIONS? YES - PLEASE INDICATE : > 9 SURGERIES LATEX RISK : ARE YOU FREQUENTLY EXPOSED TO LATEX PRODUCTS IN YOUR OCCUPATION?NO DATE ASKED : 04/20/2021 ALCOHOL USE: NO. ALCOHOL SCREENING DID YOU HAVE A DRINK CONTAINING ALCOHOL IN THE PAST YEAR?NO POINTS0 INTERPRETATIONNEGATIVE RECREATIONAL DRUG USE DRUG USE?NO CAFFEINE CAFFEINE USE?YES HOW OFTEN AND HOW MUCH? 1 CUP PER DAY SABIANIST [id number] NONE LANGUAGE LANGUAGES SPOKEN:ANGOLAN LEARNING BARRIERS / SPECIAL NEEDS BARRIERS TO LEARNING?NO HEARING IMPAIRED?NO VISION IMPAIRED?YES COGNITIVELY IMPAIRED?NO :CORRECTIVE LENSES READINESS TO LEARN?YES LEARNING PREFERENCES?NO LEARNING CAPABILITIES PRESENT?YES EMOTIONAL BARRIERS?NO SPECIAL DEVICES?NO MINI LAB OPERATOR NEEDED?NO DOMESTIC VIOLENCE DO YOU FEEL SAFE IN YOUR ENVIRONMENT?YES OCCUPATION: UNEMPLOYED. MARITAL STATUS: . - PFS REFERRAL NEEDED?NO CLERGY REFERRAL NEEDED?NO PUBLIC HEALTH REFERRAL NEEDED?NO WAS THE PROVIDER NOTIFIED OF ANY PERTINENT INFO? N/A HAS THE PATIENT BEEN EDUCATED REGARDING HIS/HER PLAN OF CARE?YES HAS THE PATIENT BEEN EDUCATED REGARDING PAIN, THE RISK FOR PAIN, THE IMPORTANCE OF EFFECTIVE PAIN MANAGEMENT, AND THE PAIN ASSESSMENT PROCESS?YES ADVANCE DIRECTIVE ADVANCE DIRECTIVE DISCUSSED WITH PATIENT:YES HCP - ULYSSES SIDDIQUI (DAUGHTER) REVIEW OF SYSTEMS CONSTITUTIONAL: ANY RECENT FEVER NO, NO . CHILLS NO, NO . WEIGHT CHANGE OF UNKNOWN REASONS NO, NO . GASTROENTEROLOGY: NEW UNEXPLAINABLE CHANGES IN BOWEL CONTROL NO, NO . CONSTIPATION NO, NO . GENITOURINARY: ANY NEW CHANGE IN BLADDER CONTROL? NO, NO . NEUROLOGY: NEW ONSET DIZZINESS OR NEUROLOGICAL CHANGES NOT MENTIONED NO, NO . NEW NUMBNESS OR PAIN PATTERNS NOT MENTIONED AND PERTINENT TO TODAY'S VISIT NO, NO . CARDIOLOGY: NEW CHEST PRESSURE NO, NO . PATIENT DENIES NO, NO . RESPIRATORY: UNEXPLAINABLE COUGH NO, NO . NEW SHORTNESS OF BREATH NO, NO . VITAL SIGNS WT 136.8 LBS, HT 67 IN, BMI 21.42 INDEX, BP 118/76 MM HG, HR 85 /MIN, RR 18 /MIN, TEMP 98.0 F, OXYGEN SAT % 96%, SAFE IN ENV? (Y/N) YES, NA INITIALS AW 0929, REVIEWED BY: Diego MONK RN. EXAMINATION GENERAL EXAMINATION: GENERALNO ACUTE DISTRESS, WELL NOURISHED AND HYDRATED. PSYCHAPPROPRIATE MOOD AND AFFECT . LUNGS:CLEAR TO AUSCULTATION BILATERALLY, NO WHEEZES, RHONCHI, RALES. HEART:NO MURMURS, REGULAR RATE AND RHYTHM. ASSESSMENTS SPONDYLOSIS WITHOUT MYELOPATHY OR RADICULOPATHY, LUMBAR REGION - M47.816 (PRIMARY) CHRONIC PRESCRIPTION OPIATE USE - Z79.891 SPONDYLOSIS WITHOUT MYELOPATHY OR RADICULOPATHY, LUMBOSACRAL REGION - M47.817 TREATMENT SPONDYLOSIS WITHOUT MYELOPATHY OR RADICULOPATHY, LUMBAR REGION NOTES: 50-YEAR-OLD FEMALE IN FOR CHRONIC PAIN FOLLOW-UP. GIVEN PRESENTING SYMPTOMS RECOMMEND CONTINUATION OF CURRENT MEDICATION REGIMEN WITH FOLLOW-UP IN 3 MONTHS. PATIENT HAS EXPRESSED UNDERSTANDING OF AND WAS IN AGREEMENT WITH TREATMENT PLAN. GIVEN TIME TO ASK QUESTIONS AND EXPRESS CONCERNS. [facility] REGISTRY REVIEWED AND DEMONSTRATES COMPLLIANCE. (REF # [id number] ) BRINGS IN MEDICATIONS WHICH IS APPROPRIATE FOR WHAT WAS DISPENSED. RECENT URINE TOXICOLOGY REVIEWED. NO UNAUTHORIZED MEDICATIONS. NO ILLICIT SUBSTANCES AND PRESCRIBED MEDICATIONS WERE PRESENT. CHRONIC PRESCRIPTION OPIATE USE LAB: ORAL FLUID TEST [facility] 04/20/2021 10:38:59 AM > TRAMADOL 04/20/2021, OXYCODONE 04/18/2021, VALIUM 04/19/2021 SPONDYLOSIS WITHOUT MYELOPATHY OR RADICULOPATHY, LUMBOSACRAL REGION REFILL MECLIZINE HCL TABLET, 25 MG, 1 TABLET NEEDED, ORALLY, BID PRN NAUSEA, 90 DAYS, 180, REFILLS 4 OTHERS REFILL OXYCODONE HCL TABLET, 10 MG, 1 TABLET, ORALLY, Q 8-12 HOURS PRN SEVERE PAIN MDD=2, 30 DAYS, 60, REFILLS 0 REFILL BACLOFEN TABLET, 20 MG, 1 TABLET WITH FOOD OR MILK, ORALLY, FOUR TIMES A DAY, 30 DAYS, 120 TABLET, REFILLS 2 REFILL VALIUM TABLET, 5 MG, 1 TABLET NEEDED, ORALLY, Q 8-12 HOURSPRN SEVERE SPASM MDD=2, 30 DAYS, 45, REFILLS 0 REFILL TRAMADOL HCL TABLET, 50 MG, 2 TAB, ORALLY, Q 4-6 HRS PRN PAIN MDD=6 CATEGORY D MEDICATION 90 DAY SCRIPT PAIN MANAGMENT, 90 DAYS, 360, REFILLS 0 PROCEDURE CODES [id number] ESTABILISHED PATIENT [facility] CHARGE DISPOSITION & COMMUNICATION FOLLOW UP 3 MONTHS (REASON: BACK PAIN) ELECTRONICALLY SIGNED BY CANDELARIA OSBORN ON 04/21/2021 AT 09:25 AM EDT DISCLAIMER : THIS IS A VISIT SUMMARY EXTRACTED FROM THE [employer] CHART. IT IS NOT A COPY OF THE [employer] PROGRESS NOTE. MTDD
== END ==
LOC: M PAIN 09:15
PROVIDERS: ATTEND Family Medicine
DX: M47.816 Spondylosis without myelopathy or radiculopathy, lumbar region (principal); M47.817 Spondylosis without myelopathy or radiculopathy, lumbosacral region; G89.29 Other chronic pain; M79.7 Fibromyalgia; G43.909 Migraine, unspecified, not intractable, without status migrainosus; G47.30 Sleep apnea, unspecified; Z86.59 Personal history of other mental and behavioral disorders; Z88.5 Allergy status to narcotic agent; Z88.8 Allergy status to other drugs, medicaments and biological substances; Z79.891 Long term (current) use of opiate analgesic; Z79.899 Other long term (current) drug therapy

== ENCOUNTER → 2021-07-20 | Outpatient (CLI) | payer OTHER | LOC: M PAIN 14:30 | PROVIDERS: ATTEND Anesthesiology | DX: M96.1 Postlaminectomy syndrome, not elsewhere classified (principal); M47.816 Spondylosis without myelopathy or radiculopathy, lumbar region; M79.7 Fibromyalgia; G43.909 Migraine, unspecified, not intractable, without status migrainosus; G47.30 Sleep apnea, unspecified; Z86.59 Personal history of other mental and behavioral disorders; Z88.5 Allergy status to narcotic agent; Z88.8 Allergy status to other drugs, medicaments and biological substances; Z79.891 Long term (current) use of opiate analgesic; Z79.899 Other long term (current) drug therapy ==

== ENCOUNTER → 2021-08-01 | Outpatient (CLI) | payer OTHER ==
--- NOTE | 2021-08-01 15:08 | REP ---
INDICATION: DETERMINE PROCEDURE. COMPARISON: None. TECHNIQUE: C-arm views cervical spine and lumbar spine. FINDINGS: Posterior fusion artery is seen at L4 through S1. There is evidence of laminectomy at L4 and L5. Hardware from anterior cervical discectomy is visualized, and anterior metallic plate, fixation screws and disc spaces are seen extending from the C5 through C7 levels. IMPRESSION: 53 seconds fluoroscopy time utilized. <Electronically signed by Angel Renner > 08/01/21 2051
== END ==
LOC: M PAIN 09:15
PROVIDERS: ATTEND Anesthesiology
DX: M96.1 Postlaminectomy syndrome, not elsewhere classified (principal); M47.816 Spondylosis without myelopathy or radiculopathy, lumbar region; M79.7 Fibromyalgia; G43.909 Migraine, unspecified, not intractable, without status migrainosus; G47.30 Sleep apnea, unspecified; Z86.59 Personal history of other mental and behavioral disorders; Z88.5 Allergy status to narcotic agent; Z88.8 Allergy status to other drugs, medicaments and biological substances; Z79.891 Long term (current) use of opiate analgesic; Z79.899 Other long term (current) drug therapy

== ENCOUNTER → 2021-12-01 | Outpatient (CLI) | payer OTHER | LOC: M PAIN 13:45 | PROVIDERS: ATTEND Nurse Practitioner Family | DX: Z79.891 Long term (current) use of opiate analgesic (principal) ==

== ENCOUNTER → 2021-12-07 | Outpatient (CLI) | payer OTHER | LOC: M PAIN 14:45 | PROVIDERS: ATTEND Anesthesiology | DX: M96.1 Postlaminectomy syndrome, not elsewhere classified (principal); M47.812 Spondylosis without myelopathy or radiculopathy, cervical region; M51.16 Intervertebral disc disorders with radiculopathy, lumbar region; M79.7 Fibromyalgia; G43.909 Migraine, unspecified, not intractable, without status migrainosus; G47.30 Sleep apnea, unspecified; Z86.59 Personal history of other mental and behavioral disorders; Z88.5 Allergy status to narcotic agent; Z88.8 Allergy status to other drugs, medicaments and biological substances; Z79.891 Long term (current) use of opiate analgesic; Z79.899 Other long term (current) drug therapy ==

== ENCOUNTER → 2021-12-28 | Outpatient (CLI) | payer OTHER | LOC: M PAIN 15:00 → M TMPAIN 15:00 | PROVIDERS: ATTEND Anesthesiology | DX: M96.1 Postlaminectomy syndrome, not elsewhere classified (principal); M79.7 Fibromyalgia; G43.909 Migraine, unspecified, not intractable, without status migrainosus; G47.30 Sleep apnea, unspecified; Z86.59 Personal history of other mental and behavioral disorders; Z88.5 Allergy status to narcotic agent; Z88.8 Allergy status to other drugs, medicaments and biological substances; Z79.891 Long term (current) use of opiate analgesic; Z79.899 Other long term (current) drug therapy ==

== ENCOUNTER → 2022-02-14 | Outpatient (CLI) | payer OTHER | LOC: M PAIN 13:45 | PROVIDERS: ATTEND Anesthesiology | DX: M96.1 Postlaminectomy syndrome, not elsewhere classified (principal); K58.9 Irritable bowel syndrome, unspecified; M79.7 Fibromyalgia; F43.10 Post-traumatic stress disorder, unspecified; K20.90 Esophagitis, unspecified without bleeding; E78.5 Hyperlipidemia, unspecified; M54.50 Low back pain, unspecified; G43.909 Migraine, unspecified, not intractable, without status migrainosus; R10.2 Pelvic and perineal pain; G47.30 Sleep apnea, unspecified; M54.2 Cervicalgia; Z79.891 Long term (current) use of opiate analgesic; Z79.899 Other long term (current) drug therapy; Z88.5 Allergy status to narcotic agent; Z88.8 Allergy status to other drugs, medicaments and biological substances ==